=== PATIENT | male | born 1965 | race Caucasian/White ===

== ENCOUNTER 2019-02-20 08:55 | Emergency (ER) | payer MEDICARE, OTHER ==
[~2019-02-20 08:55] MED LIST: ARIP10TA15 PO; DIPH-423 PO; GABA-532 PO; NO HOME MEDS; PRED50TA PO
[2019-02-20 08:56] VITALS: BP 133/84
== END 2019-02-20 10:14 | disposition home or self-care (01) ==
LOC: ER 08:56
DX: R22.32 Localized swelling, mass and lump, left upper limb (principal); G89.29 Other chronic pain; F31.9 Bipolar disorder, unspecified; F20.9 Schizophrenia, unspecified; F15.90 Other stimulant use, unspecified, uncomplicated; F12.90 Cannabis use, unspecified, uncomplicated; Z98.890 Other specified postprocedural states; Z88.5 Allergy status to narcotic agent; Z79.899 Other long term (current) drug therapy; Z56.0 Unemployment, unspecified
CPT/HCPCS: 99281

== ENCOUNTER 2019-05-25 10:53 | Emergency (ER) | payer OTHER ==
[~2019-05-25] VITALS: Ht 180.3 cm; Wt 97.7 kg
[2019-05-25 11:06] VITALS: BP 172/94
[2019-05-25] MEDS ORDERED: traMADol 50MG tablet PO ONE (12:10)
[2019-05-25] MEDS ORDERED: ketorolac trometh inj. 60 MG/2 ML VIAL IM ONE (13:25)
[2019-05-25] MEDS ORDERED: ondansetron 4mg rapidly disintigrating tab PO ONE (13:30)
== END 2019-05-25 14:13 | disposition home or self-care (01) ==
LOC: ER 10:54
DX: K42.9 Umbilical hernia without obstruction or gangrene (principal); M79.641 Pain in right hand; G89.29 Other chronic pain; F31.9 Bipolar disorder, unspecified; F20.9 Schizophrenia, unspecified; F15.90 Other stimulant use, unspecified, uncomplicated; F12.90 Cannabis use, unspecified, uncomplicated; Z56.0 Unemployment, unspecified; Z88.5 Allergy status to narcotic agent; Z88.6 Allergy status to analgesic agent; Z79.899 Other long term (current) drug therapy
CPT/HCPCS: 96372; 99283; J1885

== ENCOUNTER 2019-05-31 10:16 | Emergency (ER) | payer OTHER ==
[~2019-05-31] VITALS: Ht 180.3 cm; Wt 96.1 kg
[2019-05-31 10:17] VITALS: BP 159/95
[2019-05-31] MEDS ORDERED: ketorolac trometh. 30mg/ml inj. IM ONE (10:50)
[2019-05-31] MEDS ORDERED: ketorolac trometh inj. 60 MG/2 ML VIAL IM ONE (10:50)
== END 2019-05-31 11:12 | disposition home or self-care (01) ==
LOC: ER 10:17
DX: K62.89 Other specified diseases of anus and rectum (principal); G89.29 Other chronic pain; F31.9 Bipolar disorder, unspecified; F20.9 Schizophrenia, unspecified; F12.90 Cannabis use, unspecified, uncomplicated; F15.90 Other stimulant use, unspecified, uncomplicated; Z86.19 Personal history of other infectious and parasitic diseases; Z90.89 Acquired absence of other organs; Z56.0 Unemployment, unspecified; Z88.5 Allergy status to narcotic agent; Z79.899 Other long term (current) drug therapy
CPT/HCPCS: 96372; 99283; J1885

== ENCOUNTER 2019-09-07 10:29 | Emergency (ER) | payer MEDICARE, OTHER ==
[~2019-09-07] VITALS: Ht 180.3 cm; Wt 96.3 kg
[2019-09-07 11:31] LABS: BASOPHILS % (AUTO) 0.5 % (0-1); EOSINOPHILS # (AUTO) 0.3 X10'3 (0-0.9); EOSINOPHILS % (AUTO) 3.1 % (0-6); HEMATOCRIT 47.4 % (42.0-52.0); HEMOGLOBIN 16.2 g/dl (14.0-17.9); LYMPHOCYTES # (AUTO) 2.1 X10'3 (1.1-4.8); LYMPHOCYTES % (AUTO) 24.5 % (21-51); MEAN CORPUSCULAR HEMOGLOBIN 31.3 PG (27.0-31.0); MEAN CORPUSCULAR HGB CONC 34.1 g/dL (33.0-36.5); MEAN CORPUSCULAR VOLUME 91.7 FL (78-98); MEAN PLATELET VOLUME 8.5 FL (7.4-10.4); MONOCYTES # (AUTO) 0.5 X10'3 (0-0.9); MONOCYTES % (AUTO) 6.1 % (2-12); NEUTROPHILS # (AUTO) 5.7 X10'3 (1.8-7.7); NEUTROPHILS % (AUTO) 65.8 % (42-75); PLATELET COUNT 199 X10'3 (140-440); RED BLOOD COUNT 5.17 X10'6 (4.70-6.10); RED CELL DISTRIBUTION WIDTH 13.4 % (11.5-14.5); WHITE BLOOD COUNT 8.6 X10'3 (4.5-11.0)
[2019-09-07 11:38] LABS: CLARITY,URINE CLEAR (Clear); COLOR,URINE YELLOW (Yellow); GLUCOSE, URINE NEGATIVE (Neg); KETONES,URINE NEGATIVE (Neg); LEUKOCYTE ESTERASE ,URINE NEGATIVE (Neg); NITRITES, URINE NEGATIVE (Neg); OCCULT BLOOD,URINE NEGATIVE (Neg); PH,URINE 5.5 (4.8-8.0); PROTEIN,URINE NEGATIVE (Neg); UROBILINOGEN,URINE 0.2 E.U/dL (0.2-1.0)
[2019-09-07 11:39] LABS: UA COLLECTION TYPE CLN CATCH MIDSTREAM
[2019-09-07 11:40] LABS: URINE AMPHETAMINE SCREEN NEGATIVE (Neg); URINE BARBITUATE SCREEN NEGATIVE (Neg); URINE BENZODIAZEPINES SCREEN NEGATIVE (Neg); URINE CANNABINOID SCREEN POSITIVE (Neg); URINE COCAINE SCREEN NEGATIVE (Neg); URINE METHADONE SCREEN NEGATIVE (Neg); URINE OPIATE SCREEN NEGATIVE (Neg); URINE PHENCYCLIDINE SCREEN NEGATIVE (Neg)
[2019-09-07 11:48] LABS: ALANINE AMINOTRANSFERASE 141 U/L (12-78); ALBUMIN 3.4 G/DL (3.4-5.0); ALBUMIN/GLOBULIN RATIO 0.9 (1.1-1.5); ALKALINE PHOSPHATASE 99 IU/L (46-116); ANION GAP 6 (8-16); ASPARTATE AMINO TRANSFERASE 64 U/L (10-37); BILIRUBIN,TOTAL 0.4 MG/DL (0.1-1.0); BLOOD UREA NITROGEN 12 MG/DL (7-18); CHLORIDE 107 MMOL/L (99-107); GLUCOSE 128 MG/DL (70-104); POTASSIUM 3.6 MMOL/L (3.5-5.1); SODIUM 143 MMOL/L (135-145); TOTAL CARBON DIOXIDE 29.6 MMOL/L (24-32); TOTAL PROTEIN 7.3 G/DL (6.4-8.2); eGFR 77 ML/MIN
[2019-09-07 11:57] LABS: ETHANOL < 0.010 GM/DL (0.0-0.010)
--- NOTE | 2019-09-07 12:00 | NUR ---
pt resting in bed. spoke with
--- NOTE | 2019-09-07 13:39 | NUR ---
pt eating lunch
--- NOTE | 2019-09-07 14:00 | NUR ---
pt is resting in bed
--- NOTE | 2019-09-07 15:00 | NUR ---
pt is resting in bed. no concerns at this time
--- NOTE | 2019-09-07 16:05 | NUR ---
pt is talking with [facility]
--- NOTE | 2019-09-07 17:00 | NUR ---
change in pt condition. no concerns at this time
--- NOTE | 2019-09-07 18:30 | NUR ---
Pt LAYING IN BED OPBSERVED MURMERING TO HIMSELF SOFTLY. PT IS PLEASANT ON APPROACH, APPEARS ANXIOUS. PT REQUESTS SOMETHING FOR ANXIETY AND NIOCOTINE PATCH.
[2019-09-07] MEDS ORDERED: nicotine 7mg patch - 24hr TD ONE (19:05)
--- NOTE | 2019-09-07 20:00 | NUR ---
PT GIVEN ATIVAN 1MG ORAL, AND 7MG NICOTINE PATCH TO LEFT UE.
[2019-09-07] MEDS ORDERED: LORazepam 1 MG tablet PO ONE (21:00)
[2019-09-07] MEDS ORDERED: olanzapine 10mg tablet PO SCH (21:00)
--- NOTE | 2019-09-07 23:07 | NUR ---
PT asleep on L side, respirations WNL.
[2019-09-08 00:57] VITALS: BP 128/89
== END 2019-09-08 ==
LOC: ER 10:29
DX: F31.9 Bipolar disorder, unspecified (principal); R45.851 Suicidal ideations; G89.29 Other chronic pain; F20.9 Schizophrenia, unspecified; F12.90 Cannabis use, unspecified, uncomplicated; F15.90 Other stimulant use, unspecified, uncomplicated; Z56.0 Unemployment, unspecified; Z90.89 Acquired absence of other organs; Z88.5 Allergy status to narcotic agent; Z79.899 Other long term (current) drug therapy
CPT/HCPCS: 36415; 80053; 80305; 80320; 81003; 84443; 85025; 99285

== ENCOUNTER 2019-09-07 23:24 | Inpatient (IN) | payer OTHER ==
[~2019-09-07] VITALS: Ht 180.3 cm; Wt 93.4 kg
[2019-09-07] MEDS ORDERED: loperamide 2mg capsule PO PRN (23:40)
[2019-09-07] MEDS ORDERED: mag hydrox/Alum hydrox/simeth 30ml oral suspension PO PRN (23:40)
[2019-09-07] MEDS ORDERED: acetaminophen 325mg tablet PO PRN ×2 (23:40)
[2019-09-07] MEDS ORDERED: magnesium hydroxide 30ml (MOM) UD suspension PO PRN (23:40)
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
[2019-09-08 07:36] VITALS: BP 130/84
[2019-09-08] MEDS ORDERED: albuterol 2.5 MG/3 ML nebule NEB PRN (09:15)
[2019-09-08 09:25] LABS: CHOL/HDL RATIO 4.4 (0.00-4.99); CHOLESTEROL 129 MG/DL (0-200); HDL CHOLESTEROL 29 MG/DL (35-60); LDL CHOLESTEROL 81 MG/DL (50-100); TRIGLYCERIDES 104 MG/DL (20-135)
[2019-09-08 09:28] LABS: HEMOGLOBIN A1C 5.9 % (4.5-6.2)
[2019-09-08] MEDS ORDERED: pneumococcal 23-VAL P-sac vacc 25 mcg/0.5ml vial IMVAC ONE (10:00)
[2019-09-08] MEDS ORDERED: FLU VACC QS2019-20 36MOS UP/PF 60 MCG/0.5 ML SYRINGE IMVAC ONE (10:00)
--- NOTE | 2019-09-08 12:00 | NUR ---
Malnutrition consult: Pt admit w/ SI PO 100% avg regular now mechanical soft/chopped diet meeting needs. Pt has no edema/wounds present as well w/ no GI symptoms noted. Pt does not meet minimum malnutrition criteria at this time. No nutrition concerns. Will continue to monitor. Addendum: 09/08/19 at [address] Amended: Links added.
[2019-09-08] MEDS ORDERED: ipratropium/albuterol 3ml nebule IH PRN (16:35)
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
[2019-09-08] MEDS: NICOTINE POLACRILEX 2 MG LOZENGE BC PRN (19:03)
[2019-09-08 20:00] VITALS: BP 93/69
[2019-09-08] MEDS: aripiprazole 5mg tablet PO SCH (20:12)
[2019-09-08] MEDS: lithium carbonate 150mg capsule PO SCH (20:13)
[2019-09-08] MEDS: traZODone 50mg tablet PO PRN (20:15)
[2019-09-08] MEDS ORDERED: olanzapine 10mg tablet PO SCH (21:00)
[2019-09-08 21:54] VITALS: BP 93/69
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
[2019-09-09 07:00] VITALS: BP 131/54
[2019-09-09] MEDS: lithium carbonate 150mg capsule PO SCH ×2 (07:38→20:45)
[2019-09-09] MEDS: nicotine 21mg patch - 24 hr TD SCH (07:39)
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
[2019-09-09 20:00] VITALS: BP 117/71
[2019-09-09] MEDS: aripiprazole 5mg tablet PO SCH (20:45)
[2019-09-09] MEDS: traZODone 50mg tablet PO PRN (20:49)
[2019-09-09] MEDS: hydrOXYzine 25 MG tablet PO PRN (20:49)
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
[2019-09-10 07:46] VITALS: BP 121/69
[2019-09-10] MEDS: lithium carbonate 150mg capsule PO SCH ×2 (07:58→19:57)
[2019-09-10] MEDS: nicotine 21mg patch - 24 hr TD SCH (07:59)
[2019-09-10] MEDS: NICOTINE POLACRILEX 2 MG LOZENGE BC PRN (13:28)
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
[2019-09-10] MEDS: aripiprazole 5mg tablet PO SCH (19:57)
[2019-09-10] MEDS: traZODone 50mg tablet PO PRN (19:59)
[2019-09-10 20:00] VITALS: BP 122/71
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
[2019-09-11 07:46] VITALS: BP 125/83
[2019-09-11] MEDS: lithium carbonate 150mg capsule PO SCH ×2 (08:14→20:23)
[2019-09-11] MEDS: nicotine 21mg patch - 24 hr TD SCH (08:15)
--- NOTE | 2019-09-11 13:48 | NUR ---
PHONE CALL W/ Jhony reported his , Rachel, is going to visit today. He noted she is going to return to [place] tomorrow. He reported he did have thoughts of killing her prior to coming to [facility]. He denied any current thoughts of harming her. Jhony gave permission for specifications writer to call his . Called Jhony's , Rachel (ph# [phone]) to ensure that she is aware that Ct had made statements of thoughts of willing her. Rachel reported she thought this was the case, but was upset to hear it from specifications writer. She reported she is going to visit this evening and is planning on returning to [place] by herself. She expressed concern that Jhony is still going to be homeless and living out of his car when he is discharged. EDILSON Astorga
--- NOTE | 2019-09-11 15:48 | NUR ---
Nursing Progress Note: Legal hold:5150 Client on involuntary status for DTS Report received from ROB Pacheco with use of SBAR. Why are they here: Pt presented to the ED with complaints of suicidal ideation. Patient came in on his own accord. According to nurse patient is agitated angry and made statements that he "wants to kill himself" and "will kill someone else". Patient says that "family is trying to get rid of him." Patient was told to come in by because he hears voices and believes that it is worsening. Patient says he tried slicing his wrist and tried to shoot himself years ago. Patient is not taking medication. Assessment What has happened this shift: Pt up and visible on the unit today. Pt attended all meals and select groups. Pt denies depression and denies S.I./H.I. Pt denies a/v hallucinations. Pt states his is coming to visit today and that she went to her rehab place last evening, so he feels she is trying and that makes him hopeful. S/I, H/I: Denies. A/VH: Denies Sleep: some napping ADL's: independent Group attendance: Yes Were meds taken: yes Any med S/E : None noted. Mental Status Exam Appearance: Freshly showered in personal attire. Edentulous. Eye contact: good Behavior: cooperative and calm. Speech: Mumbled speech due to pt not having his dentures with him. Mood: Depressed. Affect: Blunted. Thought process: linear. Circumstantial. Thought Content: going into rehab. Cognition: fair Insight: poor Judgment: poor Interventions PRN's used: nicotine lozenge Therapeutic interventions: 1:1 assessment, medication administration/monitoring/education, active listening, therapeutic conversation with positive reinforcement, behavior monitoring and intervention, reality orientation, redirection and limit setting, Q 15min safety checks. Restraints/seclusion/emergency medication: None Justification of Continued Inpatient Treatment: Continued therapeutic support and medication management needed to provide stabilization, prevent decompensation, and improve coping mechanisms decreasing risk to patient and re-admittance.
[2019-09-11] MEDS: NICOTINE POLACRILEX 2 MG LOZENGE BC PRN (17:26)
[2019-09-11 20:00] VITALS: BP 127/80
[2019-09-11] MEDS: hydrOXYzine 25 MG tablet PO PRN (20:22)
[2019-09-11] MEDS: traZODone 50mg tablet PO PRN (20:23)
[2019-09-11] MEDS: aripiprazole 5mg tablet PO SCH (20:25)
--- NOTE | 2019-09-12 01:08 | NUR ---
Nursing Progress Note: Legal hold:5150 Client on involuntary status for DTS Report received from , RN with use of SBAR. Why are they here: Pt presented to the ED with complaints of suicidal ideation. Patient came in on his own accord. According to nurse patient is agitated angry and made statements that he "wants to kill himself" and "will kill someone else". Patient says that "family is trying to get rid of him." Patient was told to come in by because he hears voices and believes that it is worsening. Patient says he tried slicing his wrist and tried to shoot himself years ago. Patient is not taking medication. Assessment What has happened this shift: This patient was awake and well oriented following shift change. He meets with this engineering technical writer in the community room. Patient states he is feeling pretty good. He denies S/I or H/I, he denies hallucinations. Patient states he had a BM today, "it was normal." The patient ate his full dinner. He was medication compliant. Later in the evening this patient came out of his room. He exhibited anxiety, he states he feels some anger, he knows no reason. This patient rocks sideways back and forth from one foot to the other. His eye contact is now poor. The patient is redirected back to bed. He complies. The patient was administered Atarax, he was also given Trazadone for sleep. The patient calms and goes to sleep. S/I, H/I: Denies. A/VH: Denies. Sleep: Will compile in am at 0500 hrs. ADL's: Independent. Group attendance: Yes, reported on day shift. Were meds taken: Patient is medication compliant. Any med S/E : None noted. Mental Status Exam Appearance: Patient showered on day shift. Wearing personal clothing. Not wearing his dentures. Eye contact: Good. Behavior: Cooperative. Later in shift anxious with some anger. Speech: Mumbled speech due to pt not having his dentures with him. Mood: Depressed. Affect: Blunted. Thought process: linear. Circumstantial. Thought Content: "I'm feeling anxious and angry." Cognition: Fair. Insight: Poor. Judgment: Poor. Interventions PRN's used: Trazadone, Atarax. Therapeutic interventions: 1:1 assessment, medication administration/monitoring/education, active listening, therapeutic conversation with positive reinforcement, behavior monitoring and intervention, reality orientation, redirection and limit setting, Q 15min safety checks. Restraints/seclusion/emergency medication: None Justification of Continued Inpatient Treatment: Continued therapeutic support and medication management needed to provide stabilization, prevent decompensation, and improve coping mechanisms decreasing risk to patient and re-admittance.
[2019-09-12] MEDS: lithium carbonate 150mg capsule PO SCH ×2 (08:21→20:45)
[2019-09-12] MEDS: buPROPion SR 150mg tablet PO SCH (08:21)
[2019-09-12] MEDS: nicotine 21mg patch - 24 hr TD SCH (08:21)
[2019-09-12 08:48] VITALS: BP 125/60
--- NOTE | 2019-09-12 12:01 | NUR ---
Initial: Pt admit with depression. Currently on a mechanical soft diet with 75-100% PO intake meeting nutrient needs. LBM 09/11. No edema or wounds. No nutrition diagnosis at this time. Will continue to follow. Recommendations: 1) Continue mechanical soft diet 2) Bowel care PRN 3) Weekly weights Addendum: 09/12/19 at [address] Amended: Links added.
--- NOTE | 2019-09-12 16:45 | NUR ---
Nursing Progress Note: Legal hold:5150 Client on involuntary status for DTS Report received from ROB Wright with use of SBAR. Why are they here: Pt presented to the ED with complaints of suicidal ideation. Patient came in on his own accord. According to nurse patient is agitated angry and made statements that he "wants to kill himself" and "will kill someone else". Patient says that "family is trying to get rid of him." Patient was told to come in by because he hears voices and believes that it is worsening. Patient says he tried slicing his wrist and tried to shoot himself years ago. Patient is not taking medication. Assessment What has happened this shift: Pt up and visible on the unit today. Pt attended all meals and select groups. Pt denies depression and denies S.I./H.I. Pt denies a/v hallucinations. Pt states his visited last night and they had a good visit and he remains hopeful re: future. Pt started on Wellbutrin today. Pt spent majority of the day watching football games and did pace at times. S/I, H/I: Denies. A/VH: Denies Sleep: some napping ADL's: independent Group attendance: Yes Were meds taken: yes Any med S/E : None noted. Mental Status Exam Appearance: Freshly showered in personal attire. Edentulous. Eye contact: good Behavior: cooperative and calm. Speech: Mumbled speech due to pt not having his dentures with him. Mood: hopeful Affect: Blunted. Thought process: linear. Circumstantial. Thought Content: going into rehab. Cognition: fair Insight: poor Judgment: poor Interventions PRN's used: nicotine lozenge Therapeutic interventions: 1:1 assessment, medication administration/monitoring/education, active listening, therapeutic conversation with positive reinforcement, behavior monitoring and intervention, reality orientation, redirection and limit setting, Q 15min safety checks. Restraints/seclusion/emergency medication: None Justification of Continued Inpatient Treatment: Continued therapeutic support and medication management needed to provide stabilization, prevent decompensation, and improve coping mechanisms decreasing risk to patient and re-admittance.
[2019-09-12 20:00] VITALS: BP 127/73
[2019-09-12] MEDS: traZODone 50mg tablet PO PRN (20:45)
[2019-09-12] MEDS: aripiprazole 5mg tablet PO SCH (20:45)
[2019-09-12] MEDS: hydrOXYzine 25 MG tablet PO PRN (20:45)
--- NOTE | 2019-09-12 22:47 | NUR ---
Nursing Progress Note: Legal hold:5150 Client on involuntary status for DTS Report received from ROB Ortiz with use of SBAR. Why are they here: Pt presented to the ED with complaints of suicidal ideation. Patient came in on his own accord. According to nurse patient is agitated angry and made statements that he "wants to kill himself" and "will kill someone else". Patient says that "family is trying to get rid of him." Patient was told to come in by because he hears voices and believes that it is worsening. Patient says he tried slicing his wrist and tried to shoot himself years ago. Patient is not taking medication. Assessment What has happened this shift: Patient is out of room and ambulatory during the evening. Patient is well oriented and socializes with other patients and staff. Patient tells this adjusto writer operator that he is feeling pretty good. He denies S/I, H/I, or any hallucinations. Patient has a complaint of minor depression and some anxiety. Patient is medication compliant. He ate his full meal. Patient has watched football on television. Patient is well groomed. He did shower earlier. Patient had a BM earlier in the day. Patient rested after dinner, he has not voiced any needs since his medication pass. S/I, H/I: Denies. A/VH: Denies. Sleep: Will tally in am. ADL's: Independent. Group attendance: Yes Were meds taken: Patient is medication compliant. Any med S/E : None noted. Mental Status Exam Appearance: Freshly showered in personal attire. Edentulous. Eye contact: Good. Behavior: Friendly, mild anxiety. Speech: Mumbled speech due to pt not having his dentures with him. Mood: Upbeat. Affect: Blunted. Thought process: Linear. Circumstantial. Thought Content: going into rehab. Cognition: Fair. Insight: Poor Judgment: Poor Interventions PRN's used: Atarax, Trazadone Therapeutic interventions: 1:1 assessment, medication administration/monitoring/education, active listening, therapeutic conversation with positive reinforcement, behavior monitoring and intervention, reality orientation, redirection and limit setting, Q 15min safety checks. Restraints/seclusion/emergency medication: None Justification of Continued Inpatient Treatment: Continued therapeutic support and medication management needed to provide stabilization, prevent decompensation, and improve coping mechanisms decreasing risk to patient and re-admittance.
[2019-09-13 07:11] VITALS: BP 112/77
[2019-09-13] MEDS: buPROPion SR 150mg tablet PO SCH (08:10)
[2019-09-13] MEDS: nicotine 21mg patch - 24 hr TD SCH (08:10)
[2019-09-13] MEDS: lithium carbonate 150mg capsule PO SCH ×2 (08:10→20:25)
--- NOTE | 2019-09-13 13:35 | NUR ---
NURSING PROGRESS NOTE Legal hold: None Client is Voluntary Report received from ROB Wright with use of SBAR Why are they here: Pt presented to the ED with complaints of suicidal ideation. Patient came in on his own accord. According to nurse patient is agitated angry and made statements that he "wants to kill himself" and "will kill someone else". Patient says that "family is trying to get rid of him." Patient was told to come in by because he hears voices and believes that it is worsening. Patient says he tried slicing his wrist and tried to shoot himself years ago. Patient is not taking medication. Assessment What has happened this shift: Up early before breakfast, took medications. Denies SI, HI, AH, VH. Slightly guarded and at times constricted. After breakfast, up on unit and social with others. Attended morning process group with SW and was observed participating and paying close attention. Watched football games most of afternoon and was pleasant and cooperative. S/I, H/I: Denies. A/VH: Denies. Sleep: None ADL's: Independent. Group attendance: Yes Were meds taken: yes Any med S/E : None Mental Status Exam Appearance: Neat and clean Eye contact: Direct mostly at times avoidant Behavior: Social Speech: Clear Mood: "good" Affect: pleasant Thought process: Circumstantial. Thought Content: wanting to watch the games Cognition: Alert Insight: fair Judgment: fair Interventions PRN's used: None Therapeutic interventions: 1:1 assessment, medication administration/monitoring/education, active listening, therapeutic conversation with positive reinforcement, behavior monitoring and intervention, reality orientation, redirection and limit setting, Q 15min safety checks. Restraints/seclusion/emergency medication: None Justification of Continued Inpatient Treatment: Continued therapeutic support and medication management needed to provide stabilization, prevent decompensation, and improve coping mechanisms decreasing risk to patient and re-admittance.
[2019-09-13 20:04] VITALS: BP 121/79
[2019-09-13] MEDS: aripiprazole 5mg tablet PO SCH (20:25)
[2019-09-13] MEDS: temazepam 15mg capsule PO PRN (20:40)
--- NOTE | 2019-09-13 22:38 | NUR ---
Nursing Progress Note Legal hold: None Client is Voluntary Report received from ROB Desir with use of SBAR Why are they here: Pt presented to the ED with complaints of suicidal ideation. Patient came in on his own accord. According to nurse patient is agitated angry and made statements that he "wants to kill himself" and "will kill someone else". Patient says that "family is trying to get rid of him." Patient was told to come in by because he hears voices and believes that it is worsening. Patient says he tried slicing his wrist and tried to shoot himself years ago. Patient is not taking medication. Assessment What has happened this shift: Pt was in rec room watching football at change of shift. Pt appeared to be interacting with others appropriately and did not appear to be in any distress. After tv pt spoke on the phone with someone that informed him that his father is "not doing good," and is now at the hospital. He also reported stress associated with his mothers help and he stated tearfully, "I hope they don't when I'm in here. Pt attended snack and accepted hs meds with no issue. S/I, H/I: Denies. A/VH: Denies. Sleep: see sleep assessment ADL's: Independent. Group attendance: snack Were meds taken: yes Any med S/E : None Mental Status Exam Appearance: Neat and clean Eye contact: Direct Behavior: Social Speech: Clear Mood: "sad" Affect: congruent with mood Thought process: Circumstantial. Thought Content: parents health Cognition: Alert Insight: fair Judgment: fair Interventions PRN's used: None Therapeutic interventions: 1:1 assessment, medication administration/monitoring/education, active listening, therapeutic conversation with positive reinforcement, behavior monitoring and intervention, reality orientation, redirection and limit setting, Q 15min safety checks. Restraints/seclusion/emergency medication: None Justification of Continued Inpatient Treatment: Continued therapeutic support and medication management needed to provide stabilization, prevent decompensation, and improve coping mechanisms decreasing risk to patient and re-admittance.
[2019-09-14 08:00] VITALS: BP 126/82
[2019-09-14] MEDS: buPROPion SR 150mg tablet PO SCH (08:00)
[2019-09-14] MEDS: nicotine 21mg patch - 24 hr TD SCH (08:00)
[2019-09-14] MEDS: lithium carbonate 150mg capsule PO SCH ×2 (08:00→20:26)
--- NOTE | 2019-09-14 10:59 | NUR ---
DISCHARGE PLANNING Called [facility] to see if Jhony is a patient there. Was informed that he was seen on the [facility] in June and can follow up with the [facility]. She reported she will have a visit coordinator with the [employer] call selling underwriter to discuss follow up and referral to PCN. EDILSON Astorga
--- NOTE | 2019-09-14 13:59 | NUR ---
NURSING PROGRESS NOTE Legal hold: None Client is Voluntary Report received from ROB Quiles with use of SBAR Why are they here: Pt presented to the ED with complaints of suicidal ideation. Patient came in on his own accord. According to nurse patient is agitated angry and made statements that he "wants to kill himself" and "will kill someone else". Patient says that "family is trying to get rid of him." Patient was told to come in by because he hears voices and believes that it is worsening. Patient says he tried slicing his wrist and tried to shoot himself years ago. Patient is not taking medication. Assessment What has happened this shift: Slept in today, up for breakfast. Denies SI, HI, AH, VH. Reports recent losses, (this last year) ,his 2 sisters , and his brother. His mother is now in the hospital with multiple problems including dementia and his father too in the hospital suffering from a "pancreatic infection" and not "expected to make it." C/O his not doing [employer] paperwork from [place] and "she just gets drunk and doesn't get things done." Agreeable of going to the [facility] upon discharge. S/I, H/I: Denies. A/VH: Denies. Sleep: None ADL's: Independent. Group attendance: Yes Were meds taken: yes Any med S/E : None Mental Status Exam Appearance: Neat and clean Eye contact: Direct Behavior: Cooperative and pleasant Speech: Clear Mood: "I feel hopeful now" Affect: pleasant Thought process: Circumstantial. Thought Content: family members illnesses Cognition: Alert Insight: fair Judgment: fair Interventions PRN's used: None Therapeutic interventions: 1:1 assessment, medication administration/monitoring/education, active listening, therapeutic conversation with positive reinforcement, behavior monitoring and intervention, reality orientation, redirection and limit setting, Q 15min safety checks. Restraints/seclusion/emergency medication: None Justification of Continued Inpatient Treatment: Continued therapeutic support and medication management needed to provide stabilization, prevent decompensation, and improve coping mechanisms decreasing risk to patient and re-admittance.
--- NOTE | 2019-09-14 15:28 | NUR ---
DISCHARGE PLANNING Called [facility] and scheduled Pt's follow up appt with Dr Zamora on 09/30/19 at 3:15 pm. EDILSON Astorga
[2019-09-14 20:04] VITALS: BP 136/82
[2019-09-14] MEDS: aripiprazole 5mg tablet PO SCH (20:26)
[2019-09-14] MEDS: temazepam 15mg capsule PO PRN (20:27)
--- NOTE | 2019-09-15 00:04 | NUR ---
Nursing Progress Note Legal hold: None Client is Voluntary Report received from ROB Desir with use of SBAR Why are they here: Pt presented to the ED with complaints of suicidal ideation. Patient came in on his own accord. According to nurse patient is agitated angry and made statements that he "wants to kill himself" and "will kill someone else". Patient says that "family is trying to get rid of him." Patient was told to come in by because he hears voices and believes that it is worsening. Patient says he tried slicing his wrist and tried to shoot himself years ago. Patient is not taking medication. Assessment What has happened this shift: Pt was in rec room watching tv with other pt's at change of shift. Pt is quiet but interacts appropriately with staff and other pt's and is friendly and cooperative for 1:1. Pt denies having any complaints, reports stress related to his parent's recent hospitalization and not hearing from anyone today. Pt attended snack and then asked for his hs meds before going to bed. S/I, H/I: Denies. A/VH: Denies. Sleep: see sleep assessment ADL's: Independent. Group attendance: snack Were meds taken: yes Any med S/E : None Mental Status Exam Appearance: Neat and clean Eye contact: Direct Behavior: quiet, calm Speech: Clear Mood: "ok" Affect: congruent with mood Thought process: Circumstantial. Thought Content: parents health Cognition: Alert Insight: fair Judgment: fair Interventions PRN's used: None Therapeutic interventions: 1:1 assessment, medication administration/monitoring/education, active listening, therapeutic conversation with positive reinforcement, behavior monitoring and intervention, reality orientation, redirection and limit setting, Q 15min safety checks. Restraints/seclusion/emergency medication: None Justification of Continued Inpatient Treatment: Continued therapeutic support and medication management needed to provide stabilization, prevent decompensation, and improve coping mechanisms decreasing risk to patient and re-admittance.
[2019-09-15] MEDS ORDERED: buPROPion SR 150mg tablet PO SCH (07:30)
[2019-09-15 07:31] VITALS: BP 111/66
[2019-09-15] MEDS: nicotine 21mg patch - 24 hr TD SCH (07:54)
[2019-09-15] MEDS: buPROPion SR 100mg tab PO SCH ×2 (07:54→13:04)
[2019-09-15] MEDS: lithium carbonate 150mg capsule PO SCH ×2 (07:56→20:36)
--- NOTE | 2019-09-15 08:41 | NUR ---
[employer] APPLICATION Spoke with Italia [facility], to inquire if she met with Jhony yesterday regarding Med[employer] application. She reported she left a message with his to get additional information. Provided her with the phone number that justowriter operator was able to reach the at (different than the one Italia had called). Italia reported she will call again at the # justowriter operator provided. EDILSON Astorga
--- NOTE | 2019-09-15 17:36 | NUR ---
NURSING PROGRESS NOTE Legal hold: Voluntary. Report received from ROB Pacheco with use of SBAR Why are they here: Pt presented to the ED with complaints of suicidal ideation. Patient came in on his own accord. According to nurse patient is agitated angry and made statements that he "wants to kill himself" and "will kill someone else". Patient says that "family is trying to get rid of him." Patient was told to come in by because he hears voices and believes that it is worsening. Patient says he tried slicing his wrist and tried to shoot himself years ago. Patient is not taking medication. Assessment What has happened this shift: Patient awake early, showered. States that his never checked into rehab. and he cannot go through it anymore with her while she is still drinking. Patient states that his mother has dementia and she fell and fx hip and face injured during fall. His dad is in the hospital for pancreatic problems, and states the treatment is dangerous. He cannot get a hold of anyone on the phone. States he may have to go to [place] if anything happens, to take care of his mother. This plan has failed in the past. S/I, H/I: Denies. A/VH: Denies. Sleep: None ADL's: Independent. Group attendance: Yes Were meds taken: yes Any med S/E : None Mental Status Exam Appearance: Freshly showered in clean personal attire. Eye contact: Direct Behavior: Cooperative and pleasant Speech: Clear Mood: Depressed. Affect: Blunted. Thought process: Circumstantial. Thought Content: family members illnesses Cognition: Alert Insight: fair Judgment: fair Interventions PRN's used: None Therapeutic interventions: 1:1 assessment, medication administration/monitoring/education, active listening, therapeutic conversation with positive reinforcement, behavior monitoring and intervention, reality orientation, redirection and limit setting, Q 15min safety checks. Restraints/seclusion/emergency medication: None Justification of Continued Inpatient Treatment: Continued therapeutic support and medication management needed to provide stabilization, prevent decompensation, and improve coping mechanisms decreasing risk to patient and re-admittance.
[2019-09-15 20:00] VITALS: BP 131/65
[2019-09-15] MEDS: temazepam 15mg capsule PO PRN (20:37)
[2019-09-15] MEDS: aripiprazole 5mg tablet PO SCH (20:37)
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
[2019-09-16 07:27] VITALS: BP 129/83
[2019-09-16] MEDS: buPROPion SR 100mg tab PO SCH (07:37)
[2019-09-16] MEDS: lithium carbonate 150mg capsule PO SCH (07:38)
[2019-09-16] MEDS: nicotine 21mg patch - 24 hr TD SCH (07:38)
[2019-09-16] MEDS: hydrOXYzine 25 MG tablet PO PRN (07:53)
--- NOTE | 2019-09-16 08:44 | NUR ---
MEDI-FABIOLA APPLICATION Jhony reported his tried to get bank statements from [employer] on his behalf with his photo ID and they would not release the records to her. Spoke to Italia (ext [phone]) with FS who reported she cannot access his bank statements either. She reported Jhony could go into [employer], get the necessary records, and bring them back to FS and she would fax them in for his Medi-fabiola application. Will apprise Jhony of this. EDILSON Astorga
--- NOTE | 2019-09-16 09:19 | NUR ---
Talked to Jhony about his Medi-fabiola application. Jhony reported he can take care of getting his bank statements once he is discharged. He reported he can stay at the [facility], follow up with MILENA Melendez, and he has an appt with Dr Zamora at the end of the month. He denied any SI or HI and stated he is feeling better. Will discuss in tx team meeting. EDILSON Astorga
[2019-09-16] MEDS ORDERED: ALBU8HFA PO (10:06)
[2019-09-16] MEDS ORDERED: LIT300C PO (10:06)
[2019-09-16] MEDS ORDERED: ATRIN INH (10:06)
[2019-09-16] MEDS ORDERED: BUPR100T7 PO (10:06)
[2019-09-16] MEDS ORDERED: ARIP10TA17 PO (10:06)
[2019-09-16] MEDS ORDERED: HYDR-3686 PO (10:06)
[2019-09-16] MEDS ORDERED: NICO-687 TD (10:06)
--- NOTE | 2019-09-16 13:15 | NUR ---
DISCHARGE NOTE: Patient has agreed to go to the [facility] for food, clothing and long-term. Patient had a visit with today that went well. Patient has to apply for Medi-Sven, obtain bank statements, etc. Patient denies SI/HI. Patient is discharged in stable condition. Patient will see Dr. Zamora for follow-up psychiatric care.
== END 2019-09-16 11:20 | disposition short-term general hospital (02) | DRG 885 ==
LOC: ADULT MH 23:24
PROVIDERS: ADMIT Psychiatry & Neurology Psychiatry; ATTEND Psychiatry & Neurology Psychiatry
PROC: 3E02340 Introduction of Influenza Vaccine into Muscle, Percutaneous Approach (ICD-10-PCS; principal; 2019-09-08)
PROC: 3E0234Z Introduction of Serum, Toxoid and Vaccine into Muscle, Percutaneous Approach (ICD-10-PCS; 2019-09-08)
DX: F33.2 Major depressive disorder, recurrent severe without psychotic features (principal); B19.20 Unspecified viral hepatitis C without hepatic coma; R45.851 Suicidal ideations; G89.29 Other chronic pain; M54.9 Dorsalgia, unspecified; F12.11 Cannabis abuse, in remission; F25.0 Schizoaffective disorder, bipolar type; J44.9 Chronic obstructive pulmonary disease, unspecified; Z59.0 Homelessness; Z23 Encounter for immunization
CPT/HCPCS: 36415; 80053; 80061; 80178; 80305; 80320; 81003; 83036; 84443; 85025; 87081; 90732; 94640; 94760; Q2037; Z7610

== ENCOUNTER 2020-07-19 07:51 | Emergency (ER) | payer BC, MEDICAID ==
[~2020-07-19] VITALS: Ht 180.3 cm; Wt 95.9 kg
[~2020-07-19 07:51] MED LIST changes: -ARIP10TA15 PO; +ARIP10TA17 PO; +ATRIN INH; +BUPR100T7 PO; -DIPH-423 PO; -GABA-532 PO; +HYDR-3686 PO; +LIT300C PO; +NICO-687 TD; -NO HOME MEDS; -PRED50TA PO
[2020-07-19] MEDS ORDERED: HYDR-4383 PO (08:27)
[2020-07-19 08:42] VITALS: BP 111/60
== END 2020-07-19 08:45 | disposition home or self-care (01) ==
LOC: ER 07:52
DX: M54.9 Dorsalgia, unspecified (principal); G89.29 Other chronic pain; F12.90 Cannabis use, unspecified, uncomplicated; F15.90 Other stimulant use, unspecified, uncomplicated; Z76.0 Encounter for issue of repeat prescription; Z88.6 Allergy status to analgesic agent; Z79.899 Other long term (current) drug therapy; Z90.89 Acquired absence of other organs; Z85.118 Personal history of other malignant neoplasm of bronchus and lung; Z56.0 Unemployment, unspecified
CPT/HCPCS: 99283

== ENCOUNTER 2020-07-23 13:55 | Emergency (ER) | payer BC, MEDICAID ==
[~2020-07-23] VITALS: Ht 180.3 cm; Wt 95.5 kg
[~2020-07-23 13:55] MED LIST changes: +HYDR-4383 PO
[2020-07-23 14:03] VITALS: BP 134/86
[2020-07-23] MEDS ORDERED: ketorolac trometh inj. 60 MG/2 ML VIAL IM ONE (14:20)
== END 2020-07-23 14:56 | disposition home or self-care (01) ==
LOC: ER 13:55
DX: G89.29 Other chronic pain (principal); M54.5 Low back pain; J44.9 Chronic obstructive pulmonary disease, unspecified; Z90.89 Acquired absence of other organs; Z56.0 Unemployment, unspecified; F12.90 Cannabis use, unspecified, uncomplicated; F15.90 Other stimulant use, unspecified, uncomplicated; Z88.6 Allergy status to analgesic agent; Z79.899 Other long term (current) drug therapy
CPT/HCPCS: 96372; 99283; J1885

== ENCOUNTER 2020-07-25 09:06 | Emergency (ER) | payer BC, MEDICAID ==
[~2020-07-25] VITALS: Ht 175.3 cm; Wt 100.0 kg
--- NOTE | 2020-07-25 09:30 | NUR ---
DUNCAN GREY MADE AWARE OF PATIENT'S STATUS, PA TO ENTER ORDERS. PATIENT TO AMBULATE IN ROOM TO MONITOR FOR DE SATURATION.
--- NOTE | 2020-07-25 09:35 | NUR ---
DUNCAN GREY MADE AWARE OF PHONE CALL FROM [facility], PATIENT SPO2 DESATURATION WAS LOW, VSS UPON ARRIVAL, PATIENT SPO2 97% ON ROOM AIR S/P AMBULATION, COVID NEGATIVE RESULT, PA AT BEDSIDE TO ASSESS PATIENT.
[2020-07-25] MEDS ORDERED: AMOX-422 PO (09:39)
[2020-07-25] MEDS ORDERED: NAPR-56 PO (09:42)
[2020-07-25] MEDS ORDERED: HYDR-4383 PO (09:42)
[2020-07-25 10:38] VITALS: BP 107/71
== END 2020-07-25 10:42 | disposition home or self-care (01) ==
LOC: ER 09:07
DX: C34.90 Malignant neoplasm of unspecified part of unspecified bronchus or lung (principal); J20.9 Acute bronchitis, unspecified; M54.9 Dorsalgia, unspecified; F31.9 Bipolar disorder, unspecified; F20.9 Schizophrenia, unspecified; F12.10 Cannabis abuse, uncomplicated; F15.10 Other stimulant abuse, uncomplicated; Z59.0 Homelessness; Z56.0 Unemployment, unspecified; Z88.5 Allergy status to narcotic agent; Z79.899 Other long term (current) drug therapy
CPT/HCPCS: 71045; 93005; 99283

== ENCOUNTER 2020-08-01 08:34 | Day surgery (SDC) | payer BC, MEDICAID ==
[2020-08-01] VITALS (18 sets, daily range): BP systolic 111–142; BP diastolic 58–100
[~2020-08-01] VITALS: Ht 180.3 cm; Wt 95.7 kg
[~2020-08-01 08:34] MED LIST changes: +AMOX-422 PO; +NAPR-56 PO
[2020-08-01] MEDS ORDERED: normal saline 1000ml 1,000 ML IV PRN (08:50)
[2020-08-01] MEDS ORDERED: GABA300C PO (09:16)
[2020-08-01] MEDS ORDERED: NAPR-996 PO (09:40)
[2020-08-01] MEDS ORDERED: UMEC1DIS INH (09:40)
[2020-08-01] MEDS ORDERED: HYDR-4383 PO (09:40)
[2020-08-01] MEDS ORDERED: midazolam 2 mg/2 ml injection ONE (10:30)
[2020-08-01] MEDS ORDERED: fentaNYL/PF 50MCG/1 ML 2ML syringe ONE (10:31)
== END 2020-08-01 14:25 | disposition home or self-care (01) ==
LOC: SSTAY O 08:34
PROVIDERS: ATTEND Radiology Diagnostic Radiology
DX: R91.8 Other nonspecific abnormal finding of lung field (principal); C34.11 Malignant neoplasm of upper lobe, right bronchus or lung; Z88.5 Allergy status to narcotic agent; Z79.899 Other long term (current) drug therapy
CPT/HCPCS: 32405; 36415; 71045; 77012; 99152; 99153; J2250; J3010

== ENCOUNTER 2021-07-25 16:14 | Emergency (ER) | payer MEDICARE, MEDICAID ==
[~2021-07-25] VITALS: Ht 180.3 cm; Wt 111.4 kg
[~2021-07-25 16:14] MED LIST changes: -AMOX-422 PO; -ARIP10TA17 PO; -ATRIN INH; -BUPR100T7 PO; +GABA300C PO; -HYDR-3686 PO; -LIT300C PO; -NAPR-56 PO; +NAPR-996 PO; -NICO-687 TD; +UMEC1DIS INH
[2021-07-25 16:35] VITALS: BP 164/93
[2021-07-25] MEDS: ketorolac trometh. 30mg/ml inj. IM ONE (17:45)
== END 2021-07-25 17:00 | disposition home or self-care (01) ==
LOC: ER 16:15
DX: M54.50 Low back pain, unspecified (principal); G89.29 Other chronic pain; J44.9 Chronic obstructive pulmonary disease, unspecified; F31.9 Bipolar disorder, unspecified; F12.90 Cannabis use, unspecified, uncomplicated; F15.90 Other stimulant use, unspecified, uncomplicated; Z86.19 Personal history of other infectious and parasitic diseases; Z85.118 Personal history of other malignant neoplasm of bronchus and lung; Z20.9 Contact with and (suspected) exposure to unspecified communicable disease; Z56.0 Unemployment, unspecified; Z59.00 Homelessness unspecified; Z88.5 Allergy status to narcotic agent; Z79.899 Other long term (current) drug therapy
CPT/HCPCS: 96372; 99283; J1885

== ENCOUNTER 2022-02-10 09:45 | Emergency (ER) | payer MEDICARE, MEDICAID ==
[~2022-02-10] VITALS: Ht 182.9 cm; Wt 113.6 kg
[2022-02-10] MEDS ORDERED: MECL-159 PO (09:59)
[2022-02-10] MEDS ORDERED: meclizine 12.5mg tablet PO ONE (10:00)
[2022-02-10 10:42] VITALS: BP 162/89
== END 2022-02-10 10:44 | disposition home or self-care (01) ==
LOC: ER 09:46
DX: R42 Dizziness and giddiness (principal); R11.0 Nausea; H11.32 Conjunctival hemorrhage, left eye; J44.9 Chronic obstructive pulmonary disease, unspecified; G89.29 Other chronic pain; F12.90 Cannabis use, unspecified, uncomplicated; F15.90 Other stimulant use, unspecified, uncomplicated; Z85.118 Personal history of other malignant neoplasm of bronchus and lung; Z87.19 Personal history of other diseases of the digestive system; Z56.0 Unemployment, unspecified; Z59.00 Homelessness unspecified; Z88.5 Allergy status to narcotic agent; Z88.8 Allergy status to other drugs, medicaments and biological substances; Z79.899 Other long term (current) drug therapy
CPT/HCPCS: 93005; 99283; J8597

== ENCOUNTER 2022-03-25 20:23 | Emergency (ER) | payer MEDICARE, MEDICAID ==
[~2022-03-25 20:23] MED LIST changes: +MECL-159 PO
== END 2022-03-25 21:58 | disposition left against medical advice (07) ==
LOC: ER 20:23
DX: M54.50 Low back pain, unspecified (principal); Z53.21 Procedure and treatment not carried out due to patient leaving prior to being seen by health care provider

== ENCOUNTER 2022-03-28 09:03 | Emergency (ER) | payer MEDICARE, MEDICAID ==
[~2022-03-28] VITALS: Ht 180.3 cm; Wt 109.1 kg
[2022-03-28 09:18] VITALS: BP 127/86
[2022-03-28] MEDS ORDERED: LIDOCAINE 5% OINTMENT 35GM TP ONE (10:25)
[2022-03-28] MEDS ORDERED: LIDO30CR TOP (10:30)
[2022-03-28] MEDS ORDERED: ketorolac trometh inj. 60 MG/2 ML VIAL IM ONE (10:30)
== END 2022-03-28 10:57 | disposition home or self-care (01) ==
LOC: ER 09:03
DX: G89.29 Other chronic pain (principal); K62.89 Other specified diseases of anus and rectum; F12.10 Cannabis abuse, uncomplicated; F15.10 Other stimulant abuse, uncomplicated; J44.9 Chronic obstructive pulmonary disease, unspecified; Z87.19 Personal history of other diseases of the digestive system; F31.9 Bipolar disorder, unspecified; F20.9 Schizophrenia, unspecified; Z59.00 Homelessness unspecified; Z56.0 Unemployment, unspecified; Z88.5 Allergy status to narcotic agent; Z79.899 Other long term (current) drug therapy
CPT/HCPCS: 96372; 99283; J1885

== ENCOUNTER 2022-04-09 17:16 | Emergency (ER) | payer MEDICARE, MEDICAID ==
[~2022-04-09] VITALS: Ht 182.9 cm; Wt 90.9 kg
[~2022-04-09 17:16] MED LIST changes: +LIDO30CR TOP
[2022-04-09] MEDS ORDERED: BEBTELOVIMAB 175 MG/2 ML VIAL IV ONE (18:00)
[2022-04-09] MEDS ORDERED: ondansetron/PF 4mg/2ml inj IV ONE (18:00)
[2022-04-09] MEDS ORDERED: ketorolac trometh. 30mg/ml inj. IV ONE (18:00)
[2022-04-09] MEDS ORDERED: normal saline 1000ML IV soln IVB ONE (18:00)
[2022-04-09 18:30] LABS: EOSINOPHILS # (AUTO) 0.1 X10'3 (0-0.9); HEMOGLOBIN 15.3 g/dl (14.0-17.9); LYMPHOCYTES # (AUTO) 0.5 X10'3 (1.1-4.8); MEAN CORPUSCULAR HEMOGLOBIN 30.6 PG (27.0-31.0); MEAN CORPUSCULAR HGB CONC 33.4 g/dL (33.0-36.5)
[2022-04-09 18:32] LABS: BASOPHILS % (AUTO) 0.3 % (0-1); EOSINOPHILS % (AUTO) 1.9 % (0-6); HEMATOCRIT 45.8 % (42.0-52.0); LYMPHOCYTES % (AUTO) 13.5 % (21-51); MEAN CORPUSCULAR VOLUME 91.6 FL (78-98); MEAN PLATELET VOLUME 7.6 FL (7.4-10.4); MONOCYTES # (AUTO) 0.3 X10'3 (0-0.9); MONOCYTES % (AUTO) 8.2 % (2-12); NEUTROPHILS % (AUTO) 76.1 % (42-75); PLATELET COUNT 144 X10'3 (140-440); RED CELL DISTRIBUTION WIDTH 14.4 % (11.5-14.5); WHITE BLOOD COUNT 3.9 X10'3 (4.5-11.0)
[2022-04-09 18:59] LABS: ALANINE AMINOTRANSFERASE 66 U/L (12-78); ALBUMIN 3.2 G/DL (3.4-5.0); ALBUMIN/GLOBULIN RATIO 0.7 (1.1-1.5); ALKALINE PHOSPHATASE 60 IU/L (46-116); ANION GAP 8 (8-16); ASPARTATE AMINO TRANSFERASE 50 U/L (10-37); BILIRUBIN,TOTAL 0.4 MG/DL (0.1-1.0); BLOOD UREA NITROGEN 19 MG/DL (7-18); BUN/CREATININE RATIO 18.6 (5.4-32.0); CALCIUM 8.5 MG/DL (8.5-10.1); CHLORIDE 104 MMOL/L (99-107); CREATININE 1.02 MG/DL (0.60-1.10); GLUCOSE 95 MG/DL (70-104); POTASSIUM 4.1 MMOL/L (3.5-5.1); SODIUM 143 MMOL/L (135-145); TOTAL CARBON DIOXIDE 30.9 MMOL/L (24-32); TOTAL PROTEIN 7.6 G/DL (6.4-8.2); eGFR 75 ML/MIN
[2022-04-09 19:41] VITALS: BP 119/64
== END 2022-04-09 19:44 | disposition home or self-care (01) ==
LOC: ER 17:16
DX: U07.1 COVID-19 (principal); R11.2 Nausea with vomiting, unspecified; R19.7 Diarrhea, unspecified; J44.9 Chronic obstructive pulmonary disease, unspecified; G89.29 Other chronic pain; Z85.118 Personal history of other malignant neoplasm of bronchus and lung; F12.90 Cannabis use, unspecified, uncomplicated; F15.90 Other stimulant use, unspecified, uncomplicated; F17.210 Nicotine dependence, cigarettes, uncomplicated; Z56.0 Unemployment, unspecified; Z59.00 Homelessness unspecified; Z88.8 Allergy status to other drugs, medicaments and biological substances; Z88.5 Allergy status to narcotic agent; Z79.899 Other long term (current) drug therapy
CPT/HCPCS: 36415; 71045; 80053; 84145; 85025; 96361; 96374; 96375; 99284; J1885; J2405; J7030; M0222; Q0222

== ENCOUNTER 2022-08-05 04:59 | Emergency (ER) | payer MEDICARE, MEDICAID | END 2022-08-05 06:08 | disposition left against medical advice (07) | LOC: ER 05:00 | DX: H92.09 Otalgia, unspecified ear (principal); Z53.21 Procedure and treatment not carried out due to patient leaving prior to being seen by health care provider ==

== ENCOUNTER 2022-10-14 20:01 | Emergency (ER) | payer MEDICARE, MEDICAID ==
[~2022-10-14] VITALS: Ht 180.3 cm; Wt 110.9 kg
[2022-10-14 20:11] VITALS: BP 168/87
[2022-10-14 22:00] LABS: BASOPHILS % (AUTO) 0.6 % (0-1); EOSINOPHILS # (AUTO) 0.2 X10'3 (0-0.9); EOSINOPHILS % (AUTO) 5.6 % (0-6); HEMATOCRIT 43.1 % (42.0-52.0); HEMOGLOBIN 14.3 g/dl (14.0-17.9); LYMPHOCYTES % (AUTO) 23.1 % (21-51); MEAN CORPUSCULAR HEMOGLOBIN 30.9 PG (27.0-31.0); MEAN CORPUSCULAR HGB CONC 33.1 g/dL (33.0-36.5); MEAN CORPUSCULAR VOLUME 93.3 FL (78-98); MEAN PLATELET VOLUME 7.9 FL (7.4-10.4); MONOCYTES # (AUTO) 0.4 X10'3 (0-0.9); MONOCYTES % (AUTO) 9.7 % (2-12); NEUTROPHILS # (AUTO) 2.6 X10'3 (1.8-7.7); PLATELET COUNT 137 X10'3 (140-440); RED BLOOD COUNT 4.62 X10'6 (4.70-6.10); RED CELL DISTRIBUTION WIDTH 14.3 % (11.5-14.5); WHITE BLOOD COUNT 4.2 X10'3 (4.5-11.0)
[2022-10-14 22:04] LABS: D-DIMER 0.63 MG/L FEU (0-0.50)
[2022-10-14 22:09] LABS: ALANINE AMINOTRANSFERASE 35 U/L (12-78); ALBUMIN 3.8 G/DL (3.4-5.0); ALBUMIN/GLOBULIN RATIO 1.1 (1.1-1.5); ALKALINE PHOSPHATASE 74 IU/L (46-116); ANION GAP 6 (8-16); ASPARTATE AMINO TRANSFERASE 25 U/L (10-37); BILIRUBIN,TOTAL 0.2 MG/DL (0.1-1.0); BLOOD UREA NITROGEN 16 MG/DL (7-18); BUN/CREATININE RATIO 14.7 (5.4-32.0); CALCIUM 9.4 MG/DL (8.5-10.1); CHLORIDE 105 MMOL/L (99-107); CREATININE 1.09 MG/DL (0.60-1.10); GLUCOSE 102 MG/DL (70-104); POTASSIUM 4.5 MMOL/L (3.5-5.1); SODIUM 145 MMOL/L (135-145); TOTAL CARBON DIOXIDE 33.6 MMOL/L (24-32); TOTAL PROTEIN 7.2 G/DL (6.4-8.2); eGFR 69 ML/MIN
--- NOTE | 2022-10-14 22:26 | NUR ---
VAS AT BEDSIDE
--- NOTE | 2022-10-14 22:27 | NUR ---
VAS AT BEDSIDE
[2022-10-14] MEDS ORDERED: cephalexin 250mg capsule PO ONE (22:55)
[2022-10-14] MEDS ORDERED: CEPH-585 PO (22:59)
[2022-10-14] MEDS ORDERED: TRIA15CR61 TOP (22:59)
== END 2022-10-14 23:14 | disposition home or self-care (01) ==
LOC: ER 20:02
DX: L03.115 Cellulitis of right lower limb (principal); I50.9 Heart failure, unspecified; J44.9 Chronic obstructive pulmonary disease, unspecified; G89.29 Other chronic pain; F31.9 Bipolar disorder, unspecified; F20.9 Schizophrenia, unspecified; F17.200 Nicotine dependence, unspecified, uncomplicated; F12.90 Cannabis use, unspecified, uncomplicated; F15.90 Other stimulant use, unspecified, uncomplicated; Z59.00 Homelessness unspecified; Z56.0 Unemployment, unspecified; Z90.89 Acquired absence of other organs; Z88.5 Allergy status to narcotic agent; Z79.899 Other long term (current) drug therapy; Z86.14 Personal history of Methicillin resistant Staphylococcus aureus infection
CPT/HCPCS: 36415; 71045; 80053; 83880; 85025; 85379; 93005; 93971; 99285

== ENCOUNTER 2023-01-11 11:26 | Emergency (ER) | payer MEDICARE, MEDICAID ==
[~2023-01-11] VITALS: Ht 180.3 cm; Wt 110.0 kg
[~2023-01-11 11:26] MED LIST changes: +CEPH-585 PO
[2023-01-11 11:51] VITALS: BP 128/87
[2023-01-11] MEDS ORDERED: CEPH-585 PO (13:14)
[2023-01-11] MEDS ORDERED: cephalexin 250mg capsule PO ONE (13:15)
== END 2023-01-11 13:33 | disposition home or self-care (01) ==
LOC: ER 11:26
DX: L02.412 Cutaneous abscess of left axilla (principal); R59.0 Localized enlarged lymph nodes; J44.9 Chronic obstructive pulmonary disease, unspecified; I50.9 Heart failure, unspecified; G89.29 Other chronic pain; M54.9 Dorsalgia, unspecified; F31.9 Bipolar disorder, unspecified; F20.9 Schizophrenia, unspecified; F12.10 Cannabis abuse, uncomplicated; F15.10 Other stimulant abuse, uncomplicated; Z59.00 Homelessness unspecified; Z56.0 Unemployment, unspecified; Z79.899 Other long term (current) drug therapy; Z79.1 Long term (current) use of non-steroidal anti-inflammatories (NSAID); Z79.2 Long term (current) use of antibiotics
CPT/HCPCS: 99283

== ENCOUNTER 2023-02-14 17:07 | Emergency (ER) | payer MEDICARE, MEDICAID ==
[~2023-02-14] VITALS: Ht 180.3 cm; Wt 110.5 kg
[2023-02-14 17:12] VITALS: BP 155/101
[2023-02-14] MEDS ORDERED: sulfamethoxazole/trimethoprim DS (800/160mg) tablet PO ONE (19:25)
[2023-02-14] MEDS ORDERED: cephalexin 250mg capsule PO ONE (19:25)
[2023-02-14] MEDS ORDERED: LIDOcaine 1% W/epiNEPHrine 1:100,000 20ml vial IJ ONE (19:36)
[2023-02-14] MEDS ORDERED: CEPH250T PO (19:38)
[2023-02-14] MEDS ORDERED: SULF1TAB45 PO (19:38)
== END 2023-02-14 20:06 | disposition home or self-care (01) ==
LOC: ER 17:08
DX: L02.214 Cutaneous abscess of groin (principal); J44.9 Chronic obstructive pulmonary disease, unspecified; I11.0 Hypertensive heart disease with heart failure; G92.9 Unspecified toxic encephalopathy; M54.9 Dorsalgia, unspecified; F31.9 Bipolar disorder, unspecified; F20.9 Schizophrenia, unspecified; F15.10 Other stimulant abuse, uncomplicated; Z59.00 Homelessness unspecified; Z56.0 Unemployment, unspecified; Z79.899 Other long term (current) drug therapy; Z79.1 Long term (current) use of non-steroidal anti-inflammatories (NSAID); Z79.2 Long term (current) use of antibiotics
CPT/HCPCS: 10060; 99283; A6266; A6449

== ENCOUNTER 2023-03-01 19:47 | Emergency (ER) | payer MEDICARE, MEDICAID ==
[~2023-03-01] VITALS: Ht 180.3 cm; Wt 113.3 kg
[~2023-03-01 19:47] MED LIST changes: +CEPH250T PO
[2023-03-01 19:49] VITALS: BP 186/73
[2023-03-01 21:34] LABS: CLARITY,URINE CLEAR (Clear); COLOR,URINE YELLOW (Yellow); GLUCOSE, URINE NEGATIVE (Neg); KETONES,URINE TRACE mg/dl (Neg); LEUKOCYTE ESTERASE ,URINE NEGATIVE (Neg); NITRITES, URINE NEGATIVE (Neg); OCCULT BLOOD,URINE TRACE-INTACT (Neg); PH,URINE 5.5 (4.8-8.0); PROTEIN,URINE NEGATIVE (Neg); UROBILINOGEN,URINE 0.2 E.U/dL (0.2-1.0)
[2023-03-01 21:42] LABS: UA COLLECTION TYPE CLN CATCH MIDSTREAM
[2023-03-01 21:48] LABS: BACTERIA,URINE NONE SEEN /HPF (Neg); MUCUS STRANDS MANY /LPF (Neg); RBC,URINE 0-2 /HPF (0-2); SQUAMOUS EPITHELIAL CELL,UR FEW /LPF (FEW); WBC,URINE 0-4 /HPF (0-4)
[2023-03-01] MEDS ORDERED: ketorolac trometh. 30mg/ml inj. IM ONE (22:00)
== END 2023-03-01 22:10 | disposition home or self-care (01) ==
LOC: ER 19:47
DX: R59.0 Localized enlarged lymph nodes (principal); R30.0 Dysuria; I50.9 Heart failure, unspecified; J44.9 Chronic obstructive pulmonary disease, unspecified; F12.90 Cannabis use, unspecified, uncomplicated; F15.90 Other stimulant use, unspecified, uncomplicated; G89.29 Other chronic pain; Z79.899 Other long term (current) drug therapy; Z85.118 Personal history of other malignant neoplasm of bronchus and lung; Z59.00 Homelessness unspecified; Z56.0 Unemployment, unspecified; Z86.16 Personal history of COVID-19; Z79.2 Long term (current) use of antibiotics
CPT/HCPCS: 81001; 96372; 99283; J1885

== ENCOUNTER 2023-04-27 02:52 | Emergency (ER) | payer MEDICARE, MEDICAID ==
[~2023-04-27] VITALS: Ht 180.3 cm; Wt 113.6 kg
[2023-04-27 03:03] VITALS: TEMP 98.9
[2023-04-27] MEDS ORDERED: albuterol 2.5 MG/3 ML nebule NEB STA (03:11)
[2023-04-27 03:36] LABS: BASOPHILS # (AUTO) 0.1 X10'3 (0-0.2); EOSINOPHILS # (AUTO) 0.3 X10'3 (0-0.9); EOSINOPHILS % (AUTO) 4.5 % (0-6); HEMATOCRIT 46.3 % (42.0-52.0); HEMOGLOBIN 15.5 g/dl (14.0-17.9); LYMPHOCYTES # (AUTO) 1.6 X10'3 (1.1-4.8); LYMPHOCYTES % (AUTO) 27.1 % (21-51); MEAN CORPUSCULAR HEMOGLOBIN 31.1 PG (27.0-31.0); MEAN CORPUSCULAR HGB CONC 33.5 g/dL (33.0-36.5); MEAN CORPUSCULAR VOLUME 92.9 FL (78-98); MEAN PLATELET VOLUME 8.1 FL (7.4-10.4); MONOCYTES # (AUTO) 0.5 X10'3 (0-0.9); MONOCYTES % (AUTO) 8.8 % (2-12); NEUTROPHILS # (AUTO) 3.4 X10'3 (1.8-7.7); NEUTROPHILS % (AUTO) 58.6 % (42-75); PLATELET COUNT 183 X10'3 (140-440); RED BLOOD COUNT 4.98 X10'6 (4.70-6.10); RED CELL DISTRIBUTION WIDTH 13.8 % (11.5-14.5); WHITE BLOOD COUNT 5.7 X10'3 (4.5-11.0)
[2023-04-27 03:45] LABS: ALANINE AMINOTRANSFERASE 50 U/L (12-78); ALBUMIN 3.9 G/DL (3.4-5.0); ALBUMIN/GLOBULIN RATIO 1.1 (1.1-1.5); ALKALINE PHOSPHATASE 68 IU/L (46-116); ANION GAP 7 (8-16); ASPARTATE AMINO TRANSFERASE 25 U/L (10-37); BILIRUBIN,TOTAL 0.2 MG/DL (0.1-1.0); BLOOD UREA NITROGEN 18 MG/DL (7-18); BUN/CREATININE RATIO 17.1 (10.0-20.0); CALCIUM 8.8 MG/DL (8.5-10.1); CHLORIDE 107 MMOL/L (99-107); CREATININE 1.05 MG/DL (0.60-1.10); GLUCOSE 119 MG/DL (70-104); SODIUM 145 MMOL/L (135-145); TOTAL CARBON DIOXIDE 31.4 MMOL/L (24-32); TOTAL PROTEIN 7.6 G/DL (6.4-8.2); eCRCL 81 ML/MIN; eGFR 72 ML/MIN
[2023-04-27 03:49] LABS: PRO BRAIN NATRIURETIC PEPTIDE 39 PG/ML (0-125)
[2023-04-27 03:56] VITALS: PULSE 82; RESP 2; O2SAT 95
[2023-04-27 04:06] VITALS: PULSE 80; RESP 22; O2SAT 95
[2023-04-27 04:09] LABS: POTASSIUM 4.1 MMOL/L (3.5-5.1)
[2023-04-27] MEDS ORDERED: methylPREDNISolone sod succ 125mg/2ml vial IV ONE (04:45)
[2023-04-27 04:46] VITALS: BP 151/100; PULSE 78; RESP 24; O2SAT 95
[2023-04-27] MEDS ORDERED: iohexol 350MG/ML 100ml bottle IV ONE (04:50)
[2023-04-27] MEDS ORDERED: LEVO-65 PO (06:16)
[2023-04-27] MEDS ORDERED: PRED20TA PO (06:18)
[2023-04-27 06:48] LABS: BILIRUBIN,URINE NEGATIVE (Neg); CLARITY,URINE CLEAR (Clear); COLOR,URINE YELLOW (Yellow); GLUCOSE, URINE NEGATIVE (Neg); KETONES,URINE NEGATIVE (Neg); LEUKOCYTE ESTERASE ,URINE NEGATIVE (Neg); NITRITES, URINE NEGATIVE (Neg); OCCULT BLOOD,URINE NEGATIVE (Neg); PH,URINE 5.5 (4.8-8.0); PROTEIN,URINE NEGATIVE (Neg); UROBILINOGEN,URINE 0.2 E.U/dL (0.2-1.0)
[2023-04-27 07:05] LABS: UA COLLECTION TYPE VOIDED
[2023-04-28] MEDS ORDERED: CYCL-1 PO (15:29)
[2023-04-28] MEDS ORDERED: PRED20TA PO (15:29)
[2023-04-28] MEDS ORDERED: ALBU18HF2 INH (15:29)
[2023-04-28] MEDS ORDERED: HYDR-3973 PO (15:29)
[2023-04-28] MEDS ORDERED: LEVO-65 PO (15:29)
== END 2023-04-27 06:38 | disposition home or self-care (01) ==
LOC: ER 02:52
DX: J44.1 Chronic obstructive pulmonary disease with (acute) exacerbation (principal); Z20.822 Contact with and (suspected) exposure to COVID-19; J06.9 Acute upper respiratory infection, unspecified; I50.9 Heart failure, unspecified; G89.29 Other chronic pain; F12.90 Cannabis use, unspecified, uncomplicated; F15.90 Other stimulant use, unspecified, uncomplicated; F17.210 Nicotine dependence, cigarettes, uncomplicated; Z56.0 Unemployment, unspecified; Z59.00 Homelessness unspecified; Z85.118 Personal history of other malignant neoplasm of bronchus and lung; Z79.2 Long term (current) use of antibiotics; Z79.899 Other long term (current) drug therapy; Z92.21 Personal history of antineoplastic chemotherapy; Z51.0 Encounter for antineoplastic radiation therapy
CPT/HCPCS: 36415; 71045; 71275; 80053; 81003; 83605; 83880; 84145; 84484; 85025; 87040; 87502; 87503; 87811; 93005; 94640; 96374; 99285; J2930; J3490; Q9967; 94760

== ENCOUNTER 2023-04-28 10:48 | Emergency (ER) | payer MEDICARE, MEDICAID ==
[~2023-04-28] VITALS: Ht 180.3 cm; Wt 104.6 kg
[~2023-04-28 10:48] MED LIST changes: +LEVO-65 PO; +PRED20TA PO
[2023-04-28 11:34] LABS: BASOPHILS % (AUTO) 0.4 % (0-1); EOSINOPHILS # (AUTO) 0.1 X10'3 (0-0.9); EOSINOPHILS % (AUTO) 0.7 % (0-6); HEMATOCRIT 43.8 % (42.0-52.0); HEMOGLOBIN 14.7 g/dl (14.0-17.9); LYMPHOCYTES # (AUTO) 0.8 X10'3 (1.1-4.8); LYMPHOCYTES % (AUTO) 10.3 % (21-51); MEAN CORPUSCULAR HEMOGLOBIN 30.9 PG (27.0-31.0); MEAN CORPUSCULAR HGB CONC 33.5 g/dL (33.0-36.5); MEAN CORPUSCULAR VOLUME 92.1 FL (78-98); MEAN PLATELET VOLUME 7.6 FL (7.4-10.4); MONOCYTES # (AUTO) 0.4 X10'3 (0-0.9); MONOCYTES % (AUTO) 5.1 % (2-12); NEUTROPHILS # (AUTO) 6.7 X10'3 (1.8-7.7); NEUTROPHILS % (AUTO) 83.5 % (42-75); PLATELET COUNT 164 X10'3 (140-440); RED BLOOD COUNT 4.76 X10'6 (4.70-6.10); RED CELL DISTRIBUTION WIDTH 13.4 % (11.5-14.5)
[2023-04-28 11:50] LABS: ALANINE AMINOTRANSFERASE 52 U/L (12-78); ALBUMIN 3.6 G/DL (3.4-5.0); ALKALINE PHOSPHATASE 58 IU/L (46-116); ANION GAP 8 (8-16); ASPARTATE AMINO TRANSFERASE 26 U/L (10-37); BILIRUBIN,TOTAL 0.3 MG/DL (0.1-1.0); BLOOD UREA NITROGEN 20 MG/DL (7-18); CHLORIDE 107 MMOL/L (99-107); CREATININE 1.11 MG/DL (0.60-1.10); ETHANOL < 10 MG/DL (<10); GLUCOSE 133 MG/DL (70-104); POTASSIUM 3.9 MMOL/L (3.5-5.1); SODIUM 142 MMOL/L (135-145); TOTAL CARBON DIOXIDE 27.4 MMOL/L (24-32); TOTAL PROTEIN 7.1 G/DL (6.4-8.2); eCRCL 76 ML/MIN; eGFR 68 ML/MIN
[2023-04-28 12:22] LABS: URINE AMPHETAMINE SCREEN NEGATIVE (Neg); URINE BARBITUATE SCREEN NEGATIVE (Neg); URINE BENZODIAZEPINES SCREEN NEGATIVE (Neg); URINE CANNABINOID SCREEN POSITIVE (Neg); URINE COCAINE SCREEN NEGATIVE (Neg); URINE METHADONE SCREEN NEGATIVE (Neg); URINE OPIATE SCREEN POSITIVE (Neg); URINE PHENCYCLIDINE SCREEN NEGATIVE (Neg)
--- NOTE | 2023-04-28 12:41 | NUR ---
PT IS IN ROOM RESTING WITH EYES CLOSED. NO SIGNS OR SYMPTOMS OF DISTRESS NOTED. RESPIRATIONS APPEAR EVEN AND UNLABORED.
[2023-04-28 13:00] LABS: BILIRUBIN,URINE SMALL (Neg); CLARITY,URINE SLIGHTLY CLOUDY (Clear); GLUCOSE, URINE NEGATIVE (Neg); KETONES,URINE TRACE mg/dl (Neg); LEUKOCYTE ESTERASE ,URINE NEGATIVE (Neg); NITRITES, URINE NEGATIVE (Neg); OCCULT BLOOD,URINE NEGATIVE (Neg); PH,URINE 5.5 (4.8-8.0); PROTEIN,URINE 100 mg/dl (Neg); UROBILINOGEN,URINE 0.2 E.U/dL (0.2-1.0)
[2023-04-28 13:02] LABS: COLOR,URINE DARK YELLOW (Yellow); UA COLLECTION TYPE NON-SPECIFIED
[2023-04-28 13:12] LABS: THYROID STIMULATING HORMONE 1.08 ulU/ml (0.34-4.50)
--- NOTE | 2023-04-28 13:15 | NUR ---
Patient attempting to lower the head of his bed. No distress observed. Continue to monitor.
[2023-04-28 13:18] LABS: WBC,URINE 0-4 /HPF (0-4)
[2023-04-28 13:19] LABS: BACTERIA,URINE FEW /HPF (Neg); CAL OXALATE CRYSTALS 3+ /HPF (NEGATIVE); FINE GRANULAR CAST 0-3 /LPF (NEGATIVE); HYALINE CASTS 0-3 /LPF (NEGATIVE); MUCUS STRANDS FEW /LPF (Neg); RBC,URINE NONE SEEN /HPF (0-2); SQUAMOUS EPITHELIAL CELL,UR FEW /LPF (FEW)
--- NOTE | 2023-04-28 13:33 | NUR ---
pt came from ER @[id number]
--- NOTE | 2023-04-28 13:41 | NUR ---
Patient got very anxious and stated he was going home. RN and sierra advised patient that he was on a hold and could not leave. Patient kept walking out to the old Security and out to the west side of the hospital. Sierra Pryor followed him but could not stop him. Security was called. But patient was too far to cach. RN to call [employer].
--- NOTE | 2023-04-28 14:03 | NUR ---
RN called [employer] and then called patient's to advise her that patient was on his way home. Per Dr. Ruby patient had made threats to kill his . Jhony answered the phone. RN advised Jhony that the police were on there way to his house to bring him back because he was on a hold. Patient stated he left because he wasn't getting any help. RN explained that it takes time to get patient the help he needs. Patient was calm and cooperative.
--- NOTE | 2023-04-28 14:27 | NUR ---
1420 RN spoke to [employer] who stated they were on their way to black pickler patient. 1426, [employer] arrived with patient. Patient is calm and cooperative. Continue to monitor.
--- NOTE | 2023-04-28 14:32 | NUR ---
pt was brought back and picked up from pts home and now is back in room. pt walked out and [employer]pd brought him back.
--- NOTE | 2023-04-28 15:20 | NUR ---
ELLY, Thuy, evaluating patient. No distress observed. Continue to monitor.
[2023-04-28] MEDS ORDERED: LEVO-65 PO (15:29)
[2023-04-28] MEDS ORDERED: CYCL-1 PO (15:29)
[2023-04-28] MEDS ORDERED: HYDR-3973 PO (15:29)
[2023-04-28] MEDS ORDERED: PRED20TA PO (15:29)
[2023-04-28] MEDS ORDERED: ALBU18HF2 INH (15:29)
--- NOTE | 2023-04-28 17:09 | NUR ---
Patient reclining in bed. No distress observed at this time. Continue to monitor.
[2023-04-28] MEDS ORDERED: cyclobenzaprine 10mg tablet PO PRN (17:15)
[2023-04-28] MEDS ORDERED: albuterol 2.5 MG/3 ML nebule NEB PRN (17:15)
--- NOTE | 2023-04-28 17:32 | NUR ---
Patient eating dinner. No distress observed. Continue to monitor.
--- NOTE | 2023-04-28 18:47 | NUR ---
Daughter Jenn [phone]
--- NOTE | 2023-04-28 18:49 | NUR ---
Pt sleeping at change of shift. Pt's called asking for the cell phone as its their only phone. Pt stated that he doesnt have the phone and there is not one listed on the belonging list.
[2023-04-28] MEDS: HYDROcodone/acetaminophen 10/325mg tab PO SCH (20:09)
[2023-04-28] MEDS: gabapentin 300mg capsule PO SCH (20:09)
--- NOTE | 2023-04-28 23:56 | NUR ---
Pt appears to be sleeping
--- NOTE | 2023-04-29 03:39 | NUR ---
Pt appears to be sleeping
[2023-04-29 05:45] VITALS: BP 160/106; PULSE 67; TEMP 99.1; O2SAT 99
--- NOTE | 2023-04-29 06:34 | NUR ---
Patient sleeping prone. Respirations nonlabored. No distress observed at this time. Continue to monitor.
[2023-04-29] MEDS ORDERED: levoFLOXACIN 500mg tablet PO SCH (08:00)
[2023-04-29] MEDS ORDERED: predniSONE 20 mg tablet PO SCH (08:00)
[2023-04-29 08:07] VITALS: RESP 16
[2023-04-29] MEDS: HYDROcodone/acetaminophen 10/325mg tab PO SCH (08:07)
[2023-04-29] MEDS: gabapentin 300mg capsule PO SCH (08:07)
--- NOTE | 2023-04-29 08:15 | NUR ---
Patient sitting up and eating breakfast. No distress observed. Continue to monitor.
[2023-04-29] MEDS ORDERED: gabapentin 300mg capsule PO ONE (08:20)
--- NOTE | 2023-04-29 08:58 | NUR ---
Patient not in his room and RN saw patient go to the far bathroom earlier. Patient had eloped yesterday. Tech checked the BR and patient was not in there. RN called Yung and called patient's . Patient had not arrived at the house. Security also called.
--- NOTE | 2023-04-29 09:45 | NUR ---
RN called Brie to advise of concern that patient had plan to kill himself. Noted by Brie.
== END 2023-04-29 09:00 | disposition left against medical advice (07) ==
LOC: ER 10:49
DX: R45.851 Suicidal ideations (principal); Z20.822 Contact with and (suspected) exposure to COVID-19
CPT/HCPCS: 36415; 80053; 80305; 80320; 81001; 84443; 85025; 87811; 99285; A4314; C1758

== ENCOUNTER 2023-10-19 19:44 | Emergency (ER) | payer MEDICARE, MEDICAID ==
[~2023-10-19] VITALS: Ht 180.3 cm; Wt 113.6 kg
[~2023-10-19 19:44] MED LIST changes: +ALBU18HF2 INH; -CEPH-585 PO; -CEPH250T PO; +CYCL-1 PO; +HYDR-3973 PO; -HYDR-4383 PO; -LIDO30CR TOP; -MECL-159 PO; -NAPR-996 PO; -UMEC1DIS INH
[2023-10-19 20:11] VITALS: BP 164/90; PULSE 86; TEMP 98; O2SAT 95
[2023-10-19] MEDS: cyclobenzaprine 10mg tablet PO ONE (20:45)
[2023-10-19] MEDS ORDERED: LIDO700A32 TOP (20:49)
[2023-10-19] MEDS ORDERED: PRED20TA PO (20:49)
[2023-10-19] MEDS: ketorolac trometh inj. 60 MG/2 ML VIAL IM ONE (20:50)
[2023-10-19] MEDS: dexamethasone sod phosphate 10mg/ml inj IM STA (20:51)
[2023-10-19 20:53] VITALS: RESP 18
[2023-10-19] MEDS: HYDROcodone/acetaminophen 5mg/325mg tablet PO ONE (20:53)
[2023-10-19] MEDS ORDERED: CYCL-1 PO (21:18)
== END 2023-10-19 21:12 | disposition home or self-care (01) ==
LOC: ER 19:45
DX: M54.41 Lumbago with sciatica, right side (principal); R06.02 Shortness of breath; I50.9 Heart failure, unspecified; F20.9 Schizophrenia, unspecified; J44.9 Chronic obstructive pulmonary disease, unspecified; F15.90 Other stimulant use, unspecified, uncomplicated; Z59.00 Homelessness unspecified; Z56.0 Unemployment, unspecified; Z79.52 Long term (current) use of systemic steroids; Z79.891 Long term (current) use of opiate analgesic; Z79.899 Other long term (current) drug therapy
CPT/HCPCS: 96372; 99284; J1100; J1885; 72100

== ENCOUNTER 2024-07-14 22:06 | Emergency (ER) | payer MEDICARE, MEDICAID ==
[~2024-07-14] VITALS: Ht 180.3 cm; Wt 94.5 kg
[~2024-07-14 22:06] MED LIST changes: +ALB0.5UD IH; +BUDE10.2 INH; +BUPR-72 PO; -LEVO-65 PO; +NICO-687 TD; +NICO-907 BC; +NOR5T PO; +PANT-47 PO; -PRED20TA PO
[2024-07-14 22:23] VITALS: BP 146/89; PULSE 81; RESP 16; TEMP 98.6; O2SAT 99
[2024-07-14] MEDS ORDERED: CEPH-585 PO (22:57)
[2024-07-14] MEDS: ondansetron 4mg rapidly disintigrating tab PO ONE (23:06)
[2024-07-14] MEDS: cephalexin 250mg capsule PO ONE (23:07)
== END 2024-07-14 23:14 | disposition home or self-care (01) ==
LOC: ER 22:08
DX: H60.02 Abscess of left external ear (principal); H92.02 Otalgia, left ear; J44.9 Chronic obstructive pulmonary disease, unspecified; F20.9 Schizophrenia, unspecified; F31.9 Bipolar disorder, unspecified; F12.90 Cannabis use, unspecified, uncomplicated; Z88.5 Allergy status to narcotic agent; Z88.8 Allergy status to other drugs, medicaments and biological substances; Z85.118 Personal history of other malignant neoplasm of bronchus and lung; Z87.19 Personal history of other diseases of the digestive system; Z90.89 Acquired absence of other organs
CPT/HCPCS: 99283

== ENCOUNTER 2024-07-17 10:42 | Emergency (ER) | payer MEDICARE, MEDICAID ==
[~2024-07-17] VITALS: Ht 180.3 cm; Wt 103.0 kg
[~2024-07-17 10:42] MED LIST changes: +CEPH-585 PO
[2024-07-17 10:48] VITALS: TEMP 98.8
[2024-07-17] MEDS ORDERED: SULF1TAB45 PO (11:01)
[2024-07-17 11:12] VITALS: BP 137/86; PULSE 88; RESP 20; O2SAT 94
== END 2024-07-17 11:14 | disposition home or self-care (01) ==
LOC: ER 10:42
DX: H60.12 Cellulitis of left external ear (principal); I50.9 Heart failure, unspecified; J44.9 Chronic obstructive pulmonary disease, unspecified; G89.29 Other chronic pain; M54.9 Dorsalgia, unspecified; F31.9 Bipolar disorder, unspecified; F20.9 Schizophrenia, unspecified; F12.90 Cannabis use, unspecified, uncomplicated; F15.90 Other stimulant use, unspecified, uncomplicated; Z85.118 Personal history of other malignant neoplasm of bronchus and lung; Z59.00 Homelessness unspecified; Z56.0 Unemployment, unspecified; Z79.899 Other long term (current) drug therapy; Z79.51 Long term (current) use of inhaled steroids
CPT/HCPCS: 99283

== ENCOUNTER 2024-08-29 14:30 | Emergency (ER) | payer MEDICARE, MEDICAID ==
[~2024-08-29] VITALS: Ht 180.3 cm; Wt 109.0 kg
[~2024-08-29 14:30] MED LIST changes: -CEPH-585 PO
[2024-08-29 14:36] VITALS: BP 154/106; PULSE 77; RESP 16; TEMP 97.4; O2SAT 96
== END 2024-08-29 16:03 | disposition left against medical advice (07) ==
LOC: ER 14:30
DX: U07.1 COVID-19 (principal); Z53.21 Procedure and treatment not carried out due to patient leaving prior to being seen by health care provider

== ENCOUNTER 2024-09-13 11:55 | Emergency (ER) | payer MEDICARE, MEDICAID ==
[~2024-09-13] VITALS: Ht 180.3 cm; Wt 104.5 kg
[2024-09-13] MEDS: ondansetron/PF 4mg/2ml inj IV ONE (12:33)
[2024-09-13] MEDS: methylPREDNISolone sod succ 125mg/2ml vial IV ONE (12:33)
[2024-09-13] MEDS: ipratropium/albuterol 3ml nebule NEB ONE (12:37)
[2024-09-13 12:40] VITALS: PULSE 91; RESP 20; O2SAT 92
[2024-09-13 12:42] LABS: BASOPHILS % (AUTO) 0.5 % (0-1); EOSINOPHILS # (AUTO) 0.1 X10'3 (0-0.9); EOSINOPHILS % (AUTO) 1.8 % (0-6); HEMATOCRIT 37.9 % (42.0-52.0); HEMOGLOBIN 12.3 g/dl (14.0-17.9); LYMPHOCYTES # (AUTO) 0.9 X10'3 (1.1-4.8); LYMPHOCYTES % (AUTO) 14.7 % (21-51); MEAN CORPUSCULAR HEMOGLOBIN 28.7 PG (27.0-31.0); MEAN CORPUSCULAR HGB CONC 32.4 g/dL (33.0-36.5); MEAN CORPUSCULAR VOLUME 88.6 FL (78-98); MEAN PLATELET VOLUME 8.2 FL (7.4-10.4); MONOCYTES # (AUTO) 0.6 X10'3 (0-0.9); MONOCYTES % (AUTO) 9.1 % (2-12); NEUTROPHILS # (AUTO) 4.5 X10'3 (1.8-7.7); NEUTROPHILS % (AUTO) 73.9 % (42-75); PLATELET COUNT 254 X10'3 (140-440); RED BLOOD COUNT 4.28 X10'6 (4.70-6.10); RED CELL DISTRIBUTION WIDTH 15.5 % (11.5-14.5); WHITE BLOOD COUNT 6.1 X10'3 (4.5-11.0)
[2024-09-13 12:44] VITALS: PULSE 90; RESP 20; O2SAT 93
[2024-09-13 12:54] LABS: INR 1.2 INR; PROTHROMBIN TIME 12.2 SECONDS (9.0-12.0)
[2024-09-13 12:59] LABS: ALANINE AMINOTRANSFERASE 84 U/L (12-78); ALBUMIN 2.9 G/DL (3.4-5.0); ALBUMIN/GLOBULIN RATIO 0.6 (1.1-1.5); ALKALINE PHOSPHATASE 138 IU/L (46-116); ANION GAP 8 (8-16); ASPARTATE AMINO TRANSFERASE 107 U/L (10-37); BILIRUBIN,TOTAL 0.5 MG/DL (0.1-1.0); BLOOD UREA NITROGEN 25 MG/DL (7-18); CHLORIDE 103 MMOL/L (99-107); CREATININE 1.47 MG/DL (0.60-1.10); GLUCOSE 175 MG/DL (70-104); POTASSIUM 4.5 MMOL/L (3.5-5.1); SODIUM 139 MMOL/L (135-145); TOTAL PROTEIN 7.5 G/DL (6.4-8.2); eCRCL 56 ML/MIN; eGFR 49 ML/MIN
[2024-09-13 13:07] LABS: BILIRUBIN,DIRECT 0.3 MG/DL (0-0.3); LIPASE 22 U/L (16-77); PRO BRAIN NATRIURETIC PEPTIDE 362 PG/ML (0-125)
[2024-09-13] MEDS: morphine 2 MG/ML inj. syringe IV PRN (13:19)
[2024-09-13 14:03] LABS: BILIRUBIN,URINE SMALL (Neg); COLOR,URINE YELLOW (Yellow); GLUCOSE, URINE NEGATIVE (Neg); KETONES,URINE TRACE mg/dl (Neg); LEUKOCYTE ESTERASE ,URINE NEGATIVE (Neg); OCCULT BLOOD,URINE NEGATIVE (Neg); PH,URINE 5.5 (4.8-8.0); PROTEIN,URINE >=300 mg/dl (Neg)
[2024-09-13] MEDS: CefTRIAXone/D5W-Rocephin 1gm 50 ML IV ONE (14:03)
[2024-09-13 14:04] LABS: CLARITY,URINE SLIGHTLY CLOUDY (Clear); NITRITES, URINE NEGATIVE (Neg); UA COLLECTION TYPE URINAL
[2024-09-13 14:10] LABS: URINE AMPHETAMINE SCREEN NEGATIVE (Neg); URINE BARBITUATE SCREEN NEGATIVE (Neg); URINE BENZODIAZEPINES SCREEN NEGATIVE (Neg); URINE CANNABINOID SCREEN POSITIVE (Neg); URINE COCAINE SCREEN NEGATIVE (Neg); URINE METHADONE SCREEN NEGATIVE (Neg); URINE OPIATE SCREEN POSITIVE (Neg); URINE PHENCYCLIDINE SCREEN NEGATIVE (Neg)
[2024-09-13 14:11] LABS: BACTERIA,URINE FEW /HPF (Neg); RBC,URINE 0-2 /HPF (0-2); SQUAMOUS EPITHELIAL CELL,UR FEW /LPF (FEW); WBC,URINE 0-4 /HPF (0-4)
[2024-09-13 14:12] LABS: COARSE GRANULAR CAST 0-3 /LPF (NEGATIVE); HYALINE CASTS >30 /LPF (NEGATIVE)
[2024-09-13] MEDS ORDERED: PRED20TA PO (14:44)
[2024-09-13] MEDS ORDERED: AMOX-117 PO (14:44)
[2024-09-13] MEDS ORDERED: AZIT-21 PO (14:44)
[2024-09-13] MEDS ORDERED: ALBU18HF2 INH (14:44)
[2024-09-13 15:10] VITALS: BP 140/79; PULSE 82; RESP 18; TEMP 98.3; O2SAT 91
== END 2024-09-13 15:16 | disposition home or self-care (01) ==
LOC: ER 11:56
DX: R10.84 Generalized abdominal pain (principal); J18.9 Pneumonia, unspecified organism; K59.00 Constipation, unspecified; J44.9 Chronic obstructive pulmonary disease, unspecified; I50.9 Heart failure, unspecified; G89.29 Other chronic pain; M54.9 Dorsalgia, unspecified; F20.9 Schizophrenia, unspecified; F31.9 Bipolar disorder, unspecified; F12.90 Cannabis use, unspecified, uncomplicated; F15.90 Other stimulant use, unspecified, uncomplicated; Z90.89 Acquired absence of other organs; Z85.118 Personal history of other malignant neoplasm of bronchus and lung; Z56.0 Unemployment, unspecified; Z59.00 Homelessness unspecified; Z79.899 Other long term (current) drug therapy; Z79.52 Long term (current) use of systemic steroids
CPT/HCPCS: 36415; 71045; 71250; 76700; 80048; 80076; 80305; 81001; 82140; 83605; 83690; 83880; 84145; 84484; 85025; 85610; 87040; 93005; 94640; 96374; 96375; 99285; J0696; J2270; J2405; J2919; 94760

== ENCOUNTER 2024-10-08 11:03 | Emergency (ER) | payer MEDICARE, MEDICAID ==
[~2024-10-08] VITALS: Ht 180.3 cm; Wt 106.1 kg
[~2024-10-08 11:03] MED LIST changes: +AMOX-117 PO; +AZIT-21 PO; +PRED20TA PO
[2024-10-08 11:32] LABS: BASOPHILS % (AUTO) 0.7 % (0-1); EOSINOPHILS # (AUTO) 0.1 X10'3 (0-0.9); EOSINOPHILS % (AUTO) 3.3 % (0-6); HEMATOCRIT 38.1 % (42.0-52.0); HEMOGLOBIN 12.6 g/dl (14.0-17.9); LYMPHOCYTES # (AUTO) 0.7 X10'3 (1.1-4.8); LYMPHOCYTES % (AUTO) 23.3 % (21-51); MEAN CORPUSCULAR HEMOGLOBIN 28.6 PG (27.0-31.0); MEAN CORPUSCULAR VOLUME 86.6 FL (78-98); MEAN PLATELET VOLUME 7.8 FL (7.4-10.4); MONOCYTES # (AUTO) 0.4 X10'3 (0-0.9); MONOCYTES % (AUTO) 12.2 % (2-12); NEUTROPHILS # (AUTO) 1.8 X10'3 (1.8-7.7); NEUTROPHILS % (AUTO) 60.5 % (42-75); PLATELET COUNT 169 X10'3 (140-440); RED CELL DISTRIBUTION WIDTH 15.9 % (11.5-14.5)
[2024-10-08 11:54] LABS: ALANINE AMINOTRANSFERASE 35 U/L (12-78); ALBUMIN 2.9 G/DL (3.4-5.0); ALBUMIN/GLOBULIN RATIO 0.6 (1.1-1.5); ALKALINE PHOSPHATASE 136 IU/L (46-116); ANION GAP 5 (8-16); ASPARTATE AMINO TRANSFERASE 57 U/L (10-37); BILIRUBIN,TOTAL 0.4 MG/DL (0.1-1.0); BLOOD UREA NITROGEN 23 MG/DL (7-18); BUN/CREATININE RATIO 16.2 (10.0-20.0); CALCIUM 9.1 MG/DL (8.5-10.1); CHLORIDE 106 MMOL/L (99-107); CREATININE 1.42 MG/DL (0.60-1.10); GLUCOSE 103 MG/DL (70-104); POTASSIUM 4.3 MMOL/L (3.5-5.1); SODIUM 142 MMOL/L (135-145); TOTAL CARBON DIOXIDE 30.7 MMOL/L (24-32); TOTAL PROTEIN 7.8 G/DL (6.4-8.2); eCRCL 58 ML/MIN; eGFR 51 ML/MIN
[2024-10-08 12:03] LABS: PRO BRAIN NATRIURETIC PEPTIDE 186 PG/ML (0-125)
[2024-10-08 12:36] LABS: PLATELET ESTIMATE NORMAL; TOTAL CELLS COUNTED 100
[2024-10-08 12:46] VITALS: TEMP 98.9
[2024-10-08 15:06] VITALS: BP 146/96; PULSE 87; RESP 16; O2SAT 96
== END 2024-10-08 15:08 | disposition home or self-care (01) ==
LOC: ER 11:03
DX: R07.9 Chest pain, unspecified (principal); M79.604 Pain in right leg; F20.9 Schizophrenia, unspecified; F31.9 Bipolar disorder, unspecified; I50.9 Heart failure, unspecified; J44.9 Chronic obstructive pulmonary disease, unspecified; Z85.118 Personal history of other malignant neoplasm of bronchus and lung; F12.90 Cannabis use, unspecified, uncomplicated; F15.90 Other stimulant use, unspecified, uncomplicated; Z90.89 Acquired absence of other organs
CPT/HCPCS: 36415; 71045; 80053; 83880; 84484; 85007; 85025; 93005; 93971; 99285

== ENCOUNTER 2024-10-14 21:25 | Emergency (ER) | payer MEDICARE, MEDICAID ==
[~2024-10-14] VITALS: Ht 180.3 cm; Wt 103.1 kg
[2024-10-14 21:53] VITALS: TEMP 96.3
[2024-10-15] MEDS: famotidine/PF 10 mg/ml inj IV ONE (00:35)
[2024-10-15] MEDS: proCHLORperazine 10 MG/2 ml inj IV ONE (00:35)
[2024-10-15] MEDS: pantoprazole 40 MG vial IV ONE (00:35)
[2024-10-15] MEDS: ondansetron/PF 4mg/2ml inj IV ONE (00:35)
[2024-10-15] MEDS: normal saline 1000ML IV soln IV ONE (00:37)
[2024-10-15 00:40] LABS: BASOPHILS % (AUTO) 0.6 % (0-1); EOSINOPHILS # (AUTO) 0.1 X10'3 (0-0.9); EOSINOPHILS % (AUTO) 1.5 % (0-6); HEMATOCRIT 36.8 % (42.0-52.0); HEMOGLOBIN 12.1 g/dl (14.0-17.9); LYMPHOCYTES % (AUTO) 21.7 % (21-51); MEAN CORPUSCULAR HEMOGLOBIN 28.1 PG (27.0-31.0); MEAN CORPUSCULAR HGB CONC 32.8 g/dL (33.0-36.5); MEAN CORPUSCULAR VOLUME 85.5 FL (78-98); MEAN PLATELET VOLUME 7.8 FL (7.4-10.4); MONOCYTES # (AUTO) 0.5 X10'3 (0-0.9); MONOCYTES % (AUTO) 11.3 % (2-12); NEUTROPHILS # (AUTO) 2.9 X10'3 (1.8-7.7); NEUTROPHILS % (AUTO) 64.9 % (42-75); PLATELET COUNT 215 X10'3 (140-440); RED CELL DISTRIBUTION WIDTH 15.8 % (11.5-14.5); WHITE BLOOD COUNT 4.5 X10'3 (4.5-11.0)
[2024-10-15] MEDS: morphine 4 MG/ML inj SYRINge IV ONE (00:53)
[2024-10-15 01:17] LABS: ALBUMIN 2.8 G/DL (3.4-5.0); ANION GAP 8 (8-16); BLOOD UREA NITROGEN 22 MG/DL (7-18); BUN/CREATININE RATIO 14.1 (10.0-20.0); CHLORIDE 103 MMOL/L (99-107); CREATININE 1.56 MG/DL (0.60-1.10); GLUCOSE 95 MG/DL (70-104); MAGNESIUM 1.8 MG/DL (1.5-2.4); POTASSIUM 3.9 MMOL/L (3.5-5.1); SODIUM 138 MMOL/L (135-145); TOTAL CARBON DIOXIDE 27.1 MMOL/L (24-32); eCRCL 53 ML/MIN; eGFR 45 ML/MIN
[2024-10-15 01:45] LABS: BILIRUBIN,URINE NEGATIVE (Neg); CLARITY,URINE CLEAR (Clear); COLOR,URINE YELLOW (Yellow); GLUCOSE, URINE NEGATIVE (Neg); KETONES,URINE NEGATIVE (Neg); LEUKOCYTE ESTERASE ,URINE NEGATIVE (Neg); NITRITES, URINE NEGATIVE (Neg); OCCULT BLOOD,URINE NEGATIVE (Neg); PROTEIN,URINE 100 mg/dl (Neg); UROBILINOGEN,URINE 0.2 E.U/dL (0.2-1.0)
[2024-10-15] MEDS ORDERED: ONDA-245 PO (01:47)
[2024-10-15 01:51] LABS: UA COLLECTION TYPE URINAL
[2024-10-15 01:53] LABS: BACTERIA,URINE FEW /HPF (Neg); RBC,URINE NONE SEEN /HPF (0-2); SQUAMOUS EPITHELIAL CELL,UR FEW /LPF (FEW); WBC,URINE 0-4 /HPF (0-4)
[2024-10-15 02:05] VITALS: BP 166/105; PULSE 81; RESP 18; O2SAT 96
== END 2024-10-15 02:11 | disposition home or self-care (01) ==
LOC: ER 21:26
DX: R11.10 Vomiting, unspecified (principal); R10.13 Epigastric pain; F12.90 Cannabis use, unspecified, uncomplicated; F15.90 Other stimulant use, unspecified, uncomplicated; J44.9 Chronic obstructive pulmonary disease, unspecified; I50.9 Heart failure, unspecified; G89.29 Other chronic pain; M54.9 Dorsalgia, unspecified; F31.9 Bipolar disorder, unspecified; F20.9 Schizophrenia, unspecified; Z85.118 Personal history of other malignant neoplasm of bronchus and lung; Z90.89 Acquired absence of other organs; Z56.0 Unemployment, unspecified; Z59.00 Homelessness unspecified; Z79.899 Other long term (current) drug therapy
CPT/HCPCS: 36415; 71045; 80048; 81001; 83605; 83735; 84145; 84484; 85025; 87040; 93005; 96361; 96374; 96375; 99285; J0780; J2270; J2405; J2470; J3490; J7030; 99284

== ENCOUNTER 2024-11-09 19:50 | Emergency (ER) | payer MEDICAID, MEDICARE ==
[~2024-11-09] VITALS: Ht 180.3 cm; Wt 102.3 kg
[~2024-11-09 19:50] MED LIST changes: +ONDA-245 PO
[2024-11-09 20:12] VITALS: BP 130/88; PULSE 71; RESP 20; TEMP 98.2; O2SAT 94
[2024-11-09 20:25] LABS: BASOPHILS % (AUTO) 0.8 % (0-1); EOSINOPHILS # (AUTO) 0.1 X10'3 (0-0.9); EOSINOPHILS % (AUTO) 1.4 % (0-6); HEMATOCRIT 34.9 % (42.0-52.0); HEMOGLOBIN 11.3 g/dl (14.0-17.9); LYMPHOCYTES # (AUTO) 0.8 X10'3 (1.1-4.8); LYMPHOCYTES % (AUTO) 18.4 % (21-51); MEAN CORPUSCULAR HEMOGLOBIN 26.9 PG (27.0-31.0); MEAN CORPUSCULAR HGB CONC 32.3 g/dL (33.0-36.5); MEAN CORPUSCULAR VOLUME 83.4 FL (78-98); MEAN PLATELET VOLUME 7.7 FL (7.4-10.4); MONOCYTES # (AUTO) 0.4 X10'3 (0-0.9); MONOCYTES % (AUTO) 8.9 % (2-12); NEUTROPHILS # (AUTO) 2.9 X10'3 (1.8-7.7); NEUTROPHILS % (AUTO) 70.5 % (42-75); PLATELET COUNT 222 X10'3 (140-440); RED BLOOD COUNT 4.18 X10'6 (4.70-6.10); RED CELL DISTRIBUTION WIDTH 15.7 % (11.5-14.5); WHITE BLOOD COUNT 4.2 X10'3 (4.5-11.0)
[2024-11-09 20:40] LABS: ALANINE AMINOTRANSFERASE 51 U/L (12-78); ALBUMIN 2.5 G/DL (3.4-5.0); ALBUMIN/GLOBULIN RATIO 0.5 (1.1-1.5); ALKALINE PHOSPHATASE 202 IU/L (46-116); ANION GAP 6 (8-16); ASPARTATE AMINO TRANSFERASE 62 U/L (10-37); BILIRUBIN,TOTAL 0.3 MG/DL (0.1-1.0); BLOOD UREA NITROGEN 22 MG/DL (7-18); BUN/CREATININE RATIO 15.2 (10.0-20.0); CHLORIDE 104 MMOL/L (99-107); CREATININE 1.45 MG/DL (0.60-1.10); GLUCOSE 130 MG/DL (70-104); POTASSIUM 4.9 MMOL/L (3.5-5.1); SODIUM 139 MMOL/L (135-145); TOTAL CARBON DIOXIDE 29.2 MMOL/L (24-32); TOTAL PROTEIN 7.9 G/DL (6.4-8.2); eCRCL 57 ML/MIN; eGFR 49 ML/MIN
[2024-11-09 20:48] LABS: PRO BRAIN NATRIURETIC PEPTIDE 432 PG/ML (0-125)
== END 2024-11-09 22:37 | disposition left against medical advice (07) ==
LOC: ER 19:51
DX: R07.9 Chest pain, unspecified (principal); R06.02 Shortness of breath; Z53.21 Procedure and treatment not carried out due to patient leaving prior to being seen by health care provider
CPT/HCPCS: 36415; 71045; 80053; 83880; 84484; 85025; 93005

== ENCOUNTER 2024-11-21 14:57 | Emergency (ER) | payer MEDICARE ==
[~2024-11-21] VITALS: Ht 180.3 cm; Wt 103.5 kg
[2024-11-21 15:25] LABS: BASOPHILS % (AUTO) 0.9 % (0-1); EOSINOPHILS # (AUTO) 0.1 X10'3 (0-0.9); EOSINOPHILS % (AUTO) 2.6 % (0-6); HEMATOCRIT 36.4 % (42.0-52.0); HEMOGLOBIN 11.8 g/dl (14.0-17.9); LYMPHOCYTES % (AUTO) 23.3 % (21-51); MEAN CORPUSCULAR HEMOGLOBIN 26.8 PG (27.0-31.0); MEAN CORPUSCULAR HGB CONC 32.3 g/dL (33.0-36.5); MEAN PLATELET VOLUME 7.9 FL (7.4-10.4); MONOCYTES # (AUTO) 0.5 X10'3 (0-0.9); MONOCYTES % (AUTO) 11.2 % (2-12); NEUTROPHILS # (AUTO) 2.6 X10'3 (1.8-7.7); PLATELET COUNT 188 X10'3 (140-440); RED BLOOD COUNT 4.38 X10'6 (4.70-6.10); RED CELL DISTRIBUTION WIDTH 16.6 % (11.5-14.5); WHITE BLOOD COUNT 4.2 X10'3 (4.5-11.0)
[2024-11-21 16:00] LABS: ALANINE AMINOTRANSFERASE 43 U/L (12-78); ALBUMIN 2.8 G/DL (3.4-5.0); ALBUMIN/GLOBULIN RATIO 0.5 (1.1-1.5); ALKALINE PHOSPHATASE 167 IU/L (46-116); ANION GAP 8 (8-16); ASPARTATE AMINO TRANSFERASE 83 U/L (10-37); BILIRUBIN,TOTAL 0.4 MG/DL (0.1-1.0); BLOOD UREA NITROGEN 30 MG/DL (7-18); CALCIUM 9.2 MG/DL (8.5-10.1); CHLORIDE 102 MMOL/L (99-107); CREATININE 1.58 MG/DL (0.60-1.10); GLUCOSE 103 MG/DL (70-104); POTASSIUM 5.3 MMOL/L (3.5-5.1); SODIUM 139 MMOL/L (135-145); TOTAL CARBON DIOXIDE 29.2 MMOL/L (24-32); TOTAL PROTEIN 8.2 G/DL (6.4-8.2); eCRCL 52 ML/MIN; eGFR 45 ML/MIN
[2024-11-21 16:09] LABS: LIPASE 43 U/L (16-77); PRO BRAIN NATRIURETIC PEPTIDE 268 PG/ML (0-125)
[2024-11-21] MEDS: normal saline 1000ML IV soln IVB ONE (18:55)
[2024-11-21] MEDS ORDERED: FLO0.4C PO (19:33)
[2024-11-21 19:35] VITALS: BP 145/92; PULSE 79; RESP 16; TEMP 98; O2SAT 98
== END 2024-11-21 19:36 | disposition home or self-care (01) ==
LOC: ER 14:59
DX: R11.10 Vomiting, unspecified (principal); D64.9 Anemia, unspecified; E87.5 Hyperkalemia; R74.8 Abnormal levels of other serum enzymes; K76.0 Fatty (change of) liver, not elsewhere classified; R35.1 Nocturia; I50.9 Heart failure, unspecified; J44.9 Chronic obstructive pulmonary disease, unspecified; G89.29 Other chronic pain; M54.9 Dorsalgia, unspecified; F20.9 Schizophrenia, unspecified; F31.9 Bipolar disorder, unspecified; F12.90 Cannabis use, unspecified, uncomplicated; F15.90 Other stimulant use, unspecified, uncomplicated; Z56.0 Unemployment, unspecified; Z85.118 Personal history of other malignant neoplasm of bronchus and lung; Z59.00 Homelessness unspecified
CPT/HCPCS: 36415; 71045; 76700; 80053; 83690; 83880; 84484; 85025; 93005; 96360; 99285; J7030

== ENCOUNTER 2025-01-08 22:56 | Emergency (ER) | payer MEDICARE, MEDICAID ==
[~2025-01-08] VITALS: Ht 180.3 cm; Wt 101.2 kg
[2025-01-08 23:15] VITALS: BP 139/83; PULSE 86; TEMP 98.3
--- NOTE | 2025-01-08 23:25 | ELECTROCARDIOGRAPH REPORT ---
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
[2025-01-09 00:04] LABS: BASOPHILS % (AUTO) 0.9 % (0-1); EOSINOPHILS # (AUTO) 0.1 X10'3 (0-0.9); EOSINOPHILS % (AUTO) 3.2 % (0-6); HEMATOCRIT 34.2 % (42.0-52.0); HEMOGLOBIN 10.9 g/dl (14.0-17.9); LYMPHOCYTES # (AUTO) 0.9 X10'3 (1.1-4.8); LYMPHOCYTES % (AUTO) 20.2 % (21-51); MEAN CORPUSCULAR HEMOGLOBIN 25.6 PG (27.0-31.0); MEAN CORPUSCULAR VOLUME 80.1 FL (78-98); MEAN PLATELET VOLUME 8.3 FL (7.4-10.4); MONOCYTES # (AUTO) 0.5 X10'3 (0-0.9); MONOCYTES % (AUTO) 11.7 % (2-12); NEUTROPHILS # (AUTO) 2.8 X10'3 (1.8-7.7); PLATELET COUNT 244 X10'3 (140-440); RED BLOOD COUNT 4.27 X10'6 (4.70-6.10); WHITE BLOOD COUNT 4.5 X10'3 (4.5-11.0)
[2025-01-09 00:22] LABS: ALANINE AMINOTRANSFERASE 40 U/L (12-78); ALBUMIN 2.6 G/DL (3.4-5.0); ALBUMIN/GLOBULIN RATIO 0.5 (1.1-1.5); ALKALINE PHOSPHATASE 179 IU/L (46-116); ANION GAP 12 (8-16); ASPARTATE AMINO TRANSFERASE 99 U/L (10-37); BILIRUBIN,TOTAL 0.3 MG/DL (0.1-1.0); BLOOD UREA NITROGEN 34 MG/DL (7-18); BUN/CREATININE RATIO 15.3 (10.0-20.0); CALCIUM 8.7 MG/DL (8.5-10.1); CHLORIDE 104 MMOL/L (99-107); CREATININE 2.22 MG/DL (0.60-1.10); GLUCOSE 94 MG/DL (70-104); POTASSIUM 4.8 MMOL/L (3.5-5.1); PRO BRAIN NATRIURETIC PEPTIDE 525 PG/ML (0-125); SODIUM 142 MMOL/L (135-145); TOTAL CARBON DIOXIDE 26.4 MMOL/L (24-32); TOTAL PROTEIN 7.7 G/DL (6.4-8.2); eCRCL 37 ML/MIN; eGFR 30 ML/MIN
[2025-01-09 00:31] VITALS: RESP 18; O2SAT 96
--- NOTE | 2025-01-09 01:35 | Physician Documentation ---
History of Present Illness ~ General Chief Complaint: See Chief Complaint Stated Complaint: CP, SOB, DVT LEG Time Seen by MD: 01:31 Primary Medical Doctor: miguelina Source: patient, family Mode of Arrival: Ambulatory History of Present Illness Initial Comments Patient with history of lung cancer, tobacco use disorder presenting for shortness of breath increased from his baseline and right thigh and right calf pain and swelling. History obtained while patient is walking way in the parking lot. He is agreeable to very brief evaluation but does not want to stay for more than a few minutes. He reports his shortness of breath is due to his lung cancer and chronic. His family member at bedside states that she thinks he is worsened in his baseline he reports wheezing Medication Reconciliation Allergies: Coded Allergies: No Known Allergies (Unverified , 01/08/25) Scheduled Amlodipine Besylate (Amlodipine Besylate), 5 MG PO DAILY Budesonide/Formoterol Fumarate (Symbicort 160-4.5 Mcg Inhaler), 2 PUFFS INH Q12H Bupropion HCl (Bupropion HCl Sr), 1 TAB PO BID Gabapentin (Neurontin), 2 CAP PO TID Hydrocodone Bit/Acetaminophen (Hydrocodone-Apap 10-325 Tablet), 1 TABLET PO TID, (Reported) Ondansetron 8mg ODT (Ondansetron Odt), 1 TAB PO Q6H Scheduled PRN Albuterol Sulfate (Ventolin Hfa), 2 PUFFS INH Q4HPRN PRN for SOB or wheezing Discontinued Medications Albuterol Sulfate (Ventolin Hfa), 2 PUFFS INH Q4HPRN PRN for wheezing Discontinued Reason: patient no longer taking Albuterol Sulfate Nebs* (Proventil Nebs*), 2.5 MG IH Q4H PRN for SOB or wheezing, (Reported) Discontinued Reason: patient no longer taking Amox Tr/Potassium Clavulanate (Augmentin 875-125 Tablet), 1 TAB PO Q12H Discontinued Reason: patient no longer taking Azithromycin (Azithromycin), 1 TAB PO UD Discontinued Reason: patient no longer taking Cyclobenzaprine* (Cyclobenzaprine*), 1 TAB PO Q6H PRN for spasms, (Reported) Discontinued Reason: patient no longer taking Cyclobenzaprine* (Cyclobenzaprine*), 1 TAB PO HS Discontinued Reason: completed med therapy Nicotine 21 MG Patch* (Habitrol 21 MG Patch*), 1 PATCH TD DAILY Discontinued Reason: patient no longer taking Nicotine Polacrilex (Nicotine Lozenge), 2 MG BC Q2H PRN for NICOTINE CRAVING Discontinued Reason: patient no longer taking Pantoprazole Sodium (PROTONIX tablet), 1 TAB PO DAILY, (Reported) Discontinued Reason: patient no longer taking Prednisone* (Prednisone*), 2 TAB PO DAILY Discontinued Reason: patient no longer taking Past Medical History Past Medical History: Congestive Heart Failure, COPD, Cirrohsis, Hemorrhoids, Hepatitis C, Chronic Pain, Chronic Back Pain, *CANCER*, Lung Cancer, Bipolar, Schizophrenia Past Surgical History: noncontributory, tonsillectomy Patient History: FHx: mental illness FATHER, , Age: 59, Cause: Cancer MOTHER, , Age: 75, Cause: Sepsis brother, Other Past Family History: NONCONTRIBUTORY Alcohol Use: None Drug Use: marijuana, methamphetamine Lives with: Spouse Lives In: Homeless Occupation: unemployed Review of Systems Constitutional: Denies: fever Physical Exam Physical Exam Vital Signs: Temperature: 98.3, Source: Oral, Heart Rate: 86, Respiratory Rate: 18, BP: 139/83, Pulse Oximetry: 96, Weight: 101.200 Physical Exam Chronically ill-appearing Pulmonary diffuse expiratory wheezes Cardiac no murmur Lower extremity Right lower extremity swollen tender intact pulses soft compartments Progress Results/Orders Reviewed/noted all lab results: Yes Results/Orders Orders - ASHELY ROGERS MD Chest,Single View (01/08/25 23:23) Monitor (01/08/25 23:23) Saline Lock (01/08/25 23:23) Oxygen (01/08/25 23:23) Hs Troponin I W Calculations (01/09/25 01:23) Hs Troponin I W Calculations (01/09/25 02:23) Completed Orders - ASHELY ROGERS MD Chest,Single View (01/08/25 23:23) Cbc/Diff (01/08/25 23:23) PBNP (01/08/25 23:23) Electrocardiogram (01/08/25 23:23) CMP (01/08/25 23:23) Hs Troponin I W Calculations (01/08/25 23:23) Enoxaparin Syringe (Lovenox Syringe) (01/09/25 01:35) Prednisone Tablet (Prednisone Tablet) (01/09/25 01:40) Vital Signs 01/08/25 01/09/25 01/09/25 23:15 00:31 00:31 Temp 98.3 Pulse 86 Resp 16 18 B/P (MAP) 139/83 Pulse Ox 96 96 O2 Delivery Room Air* O2 Flow Rate 0 FiO2 21 Laboratory Tests Test 01/08/25 23:02 White Blood Count 4.5 Red Blood Count 4.27 L Hemoglobin 10.9 L Hematocrit 34.2 L Mean Corpuscular Volume 80.1 Mean Corpuscular Hemoglobin 25.6 L Mean Corpuscular Hemoglobin Concent 32.0 L Red Cell Distribution Width 18.0 H Platelet Count 244 Mean Platelet Volume 8.3 Neutrophils (%) (Auto) 64.0 Lymphocytes (%) (Auto) 20.2 L Monocytes (%) (Auto) 11.7 Eosinophils (%) (Auto) 3.2 Basophils (%) (Auto) 0.9 Neutrophils # (Auto) 2.8 Lymphocytes # (Auto) 0.9 L Monocytes # (Auto) 0.5 Eosinophils # (Auto) 0.1 Basophils # (Auto) 0.0 CBC Comment Sodium Level 142 Potassium Level 4.8 Chloride Level 104 Carbon Dioxide Level 26.4 Anion Gap 12 Blood Urea Nitrogen 34 H Creatinine 2.22 H Estimated GFR/1.73 m2 30 BUN/Creatinine Ratio 15.3 Glucose Level 94 Calcium Level 8.7 Total Bilirubin 0.3 Aspartate Amino Transf (AST/SGOT) 99 H Alanine Aminotransferase (ALT/SGPT) 40 Alkaline Phosphatase 179 H Troponin I High Sensitivity 7 Pro-B-Type Natriuretic Peptide 525 H Total Protein 7.7 Albumin 2.6 L Globulin 5.1 H Albumin/Globulin Ratio 0.5 L Chemistry Comments EKG/XRAY/CT/US/VASC/MRI Chest X-Ray : Additional Comments I independently interpreted chest x-ray shows right middle lobe atelectasis or infiltrate no consolidation normal cardiomediastinal silhouette Medical Decision Making Additional info obtained from: old records Findings Discharge summary reviewed 03/2024 Bipolar disorder tobacco use disorder ADH Differential Diagnosis COPD, lung cancer, pulmonary embolism, DVT Departure Disposition: LEFT AGAINST MEDICAL ADVICE Impression: Primary Impression: COPD (chronic obstructive pulmonary disease) Qualified Codes: J44.1 - Chronic obstructive pulmonary disease with (acute) exacerbation Additional Impression Text Patient presenting with leg swelling and acute on chronic shortness of breath with history of COPD and lung cancer. He is very ornery and does not want to stay in the ED. He is not want to wait for a vascular ultrasound. He is amenable to a dose of Lovenox. I have given him the 1 mg/kg dose due to his GFR being near the lower limit requiring dosage adjustment. The risk of starting him on a DOAC without a clear diagnosis is not a reasonable alternative. I have instructed him that he needs to return for an ultrasound for definitive treatment and management Additional Instructions: We are concerned that you have a blood clot in your leg and potentially in your lung. The treatment of this is diagnosis with an ultrasound which you do not want to pursue. I have given you a dose of blood thinner medication which will help protect any worsening of a potential blood clot. This however is only good for about 12 hours. Please return in the morning or any time for your ultrasound. Referrals: NO PRIMARY CARE PROVIDER (PCP) Prescriptions Prednisone* (Prednisone*) 20 Mg Tablet 3 TAB PO DAILY, #15 TAB Prov: ASHELY ROGERS MD 01/09/25 Signature Scribe Signature: george Attestation: ASHELY Celis MD January 09, 2025 01:35
[2025-01-09] MEDS ORDERED: PRED20TA PO (02:04)
[2025-01-09] MEDS: prednisone 10mg tablet PO ONE (02:04)
[2025-01-09] MEDS: predniSONE 20 mg tablet PO ONE (02:08)
[2025-01-09] MEDS: enoxaparin 100mg/ml syringe SUBCUT ONE (02:08)
--- NOTE | 2025-01-09 02:20 | RADIOLOGY REPORT ---
Clinical History CP Comparison PCXR on 11/09/2024, 1 images. Technique: A single AP/PA chest radiograph was provided for review. Without Contrast RANJIT FARFAN, [id number] FINDINGS:/IMPRESSION: Normal cardiac silhouette. Ill-defined densities at the right lung base, possible infiltrates. Nodular densities at the right lung base and left lung base, possible nodules. No effusion or pneumothorax. Probable scarring in the right midlung zone. This report was electronically signed by Júnior Lemus MD on 01/09/2025 2:17:50 AM.
== END 2025-01-09 02:15 | disposition left against medical advice (07) ==
LOC: ER 22:57
DX: J44.9 Chronic obstructive pulmonary disease, unspecified (principal); M79.661 Pain in right lower leg; F31.9 Bipolar disorder, unspecified; I50.9 Heart failure, unspecified; F20.9 Schizophrenia, unspecified; C34.90 Malignant neoplasm of unspecified part of unspecified bronchus or lung; Z85.118 Personal history of other malignant neoplasm of bronchus and lung; Z87.891 Personal history of nicotine dependence; Z90.89 Acquired absence of other organs; F12.90 Cannabis use, unspecified, uncomplicated; F15.90 Other stimulant use, unspecified, uncomplicated
CPT/HCPCS: 36415; 71045; 80053; 83880; 84484; 85025; 93005; 96372; 99285; J1650; J7512

== ENCOUNTER 2025-01-11 11:58 | Emergency (ER) | payer MEDICARE, MEDICAID ==
[~2025-01-11] VITALS: Ht 180.3 cm; Wt 100.9 kg
[~2025-01-11 11:58] MED LIST changes: -ALB0.5UD IH; -AMOX-117 PO; -AZIT-21 PO; -CYCL-1 PO; -NICO-687 TD; -NICO-907 BC; -PANT-47 PO
[2025-01-11 12:08] VITALS: TEMP 97.6
--- NOTE | 2025-01-11 12:18 | ELECTROCARDIOGRAPH REPORT ---
[facility] Test Date: 2025-01-11 Test Time: 12:16:17 Pat Name: RANJIT FARFAN Department: [facility] Patient ID: [id number] Room: Gender: M Appliquer: : 1965 Requested By: MARI IGLESIAS Order Number: [id number] Reading MD: Measurements Intervals [place] Rate: 84 P: 76 GA: 148 QRS: 82 QRSD: 107 T: 53 QT: 367 QTc: 434 Interpretive Statements Sinus rhythm Atrial premature complex Borderline right axis deviation Please click the below link to view image of tracing.
[2025-01-11 12:23] LABS: BASOPHILS % (AUTO) 0.9 % (0-1); EOSINOPHILS # (AUTO) 0.1 X10'3 (0-0.9); EOSINOPHILS % (AUTO) 2.1 % (0-6); HEMATOCRIT 33.7 % (42.0-52.0); HEMOGLOBIN 10.4 g/dl (14.0-17.9); LYMPHOCYTES # (AUTO) 0.7 X10'3 (1.1-4.8); LYMPHOCYTES % (AUTO) 14.9 % (21-51); MEAN CORPUSCULAR HEMOGLOBIN 24.8 PG (27.0-31.0); MEAN PLATELET VOLUME 8.1 FL (7.4-10.4); MONOCYTES # (AUTO) 0.5 X10'3 (0-0.9); MONOCYTES % (AUTO) 11.4 % (2-12); NEUTROPHILS # (AUTO) 3.3 X10'3 (1.8-7.7); NEUTROPHILS % (AUTO) 70.7 % (42-75); PLATELET COUNT 209 X10'3 (140-440); RED BLOOD COUNT 4.21 X10'6 (4.70-6.10); RED CELL DISTRIBUTION WIDTH 17.7 % (11.5-14.5); WHITE BLOOD COUNT 4.7 X10'3 (4.5-11.0)
[2025-01-11 12:50] LABS: ALANINE AMINOTRANSFERASE 47 U/L (12-78); ALBUMIN 2.5 G/DL (3.4-5.0); ALBUMIN/GLOBULIN RATIO 0.5 (1.1-1.5); ALKALINE PHOSPHATASE 163 IU/L (46-116); ANION GAP 7 (8-16); ASPARTATE AMINO TRANSFERASE 117 U/L (10-37); BILIRUBIN,TOTAL 0.6 MG/DL (0.1-1.0); BLOOD UREA NITROGEN 30 MG/DL (7-18); BUN/CREATININE RATIO 21.7 (10.0-20.0); CALCIUM 9.1 MG/DL (8.5-10.1); CHLORIDE 105 MMOL/L (99-107); CREATININE 1.38 MG/DL (0.60-1.10); GLUCOSE 92 MG/DL (70-104); POTASSIUM 4.6 MMOL/L (3.5-5.1); PRO BRAIN NATRIURETIC PEPTIDE 501 PG/ML (0-125); SODIUM 139 MMOL/L (135-145); TOTAL CARBON DIOXIDE 26.6 MMOL/L (24-32); TOTAL PROTEIN 7.4 G/DL (6.4-8.2); eCRCL 60 ML/MIN; eGFR 52 ML/MIN
--- NOTE | 2025-01-11 13:08 | RADIOLOGY REPORT ---
CHEST RADIOGRAPH Indication: CP Technique: Single frontal view of the chest was obtained COMPARISON: DI CHEST,SINGLE VIEW on DOS: 01/08/25, DI CHEST,SINGLE VIEW on DOS: 11/21/24, DI CHEST,SINGL E VIEW on DOS: 11/09/24, DI CHEST,SINGLE VIEW on DOS: 10/14/24, DI CHEST,SINGLE VIEW on DOS: 10/08/24 FINDINGS: Lines and Tubes: None Lungs: Unchanged right mid to upper lung scarring. Pleura: No effusion. No pneumothorax. Cardiomediastinal contours: Unremarkable Bones: Unremarkable IMPRESSION: Unchanged right mid to upper lung scarring.
--- NOTE | 2025-01-11 15:13 | Physician Documentation ---
History of Present Illness ~ Chief Complaint: Shortness of Breath Stated Complaint: POSS BLOOD CLOT Time Seen by MD: 14:27 Primary Medical Doctor: miguelina BENNETT 59-year-old male presents to the ED with a complaint of right leg pain. He states that his doctor sent him here because he has a history of DVT and has increased right leg pain and swelling.. Patient has a known history of noncompliance.. He also states that his doctor sent him here to get a ultrasound of his heart. Denies any current meth use Day of Onset: January 11, 2025 Medication Reconciliation Allergies: Coded Allergies: No Known Allergies (Unverified , 01/11/25) Scheduled Amlodipine Besylate (Amlodipine Besylate), 5 MG PO DAILY Budesonide/Formoterol Fumarate (Symbicort 160-4.5 Mcg Inhaler), 2 PUFFS INH Q12H Bupropion HCl (Bupropion HCl Sr), 1 TAB PO BID Gabapentin (Neurontin), 2 CAP PO TID Hydrocodone Bit/Acetaminophen (Hydrocodone-Apap 10-325 Tablet), 1 TABLET PO TID, (Reported) Ondansetron 8mg ODT (Ondansetron Odt), 1 TAB PO Q6H Prednisone* (Prednisone*), 3 TAB PO DAILY Scheduled PRN Albuterol Sulfate (Ventolin Hfa), 2 PUFFS INH Q4HPRN PRN for SOB or wheezing Discontinued Medications Albuterol Sulfate (Ventolin Hfa), 2 PUFFS INH Q4HPRN PRN for wheezing Discontinued Reason: patient no longer taking Albuterol Sulfate Nebs* (Proventil Nebs*), 2.5 MG IH Q4H PRN for SOB or wheezing, (Reported) Discontinued Reason: patient no longer taking Amox Tr/Potassium Clavulanate (Augmentin 875-125 Tablet), 1 TAB PO Q12H Discontinued Reason: patient no longer taking Azithromycin (Azithromycin), 1 TAB PO UD Discontinued Reason: patient no longer taking Cyclobenzaprine* (Cyclobenzaprine*), 1 TAB PO Q6H PRN for spasms, (Reported) Discontinued Reason: patient no longer taking Cyclobenzaprine* (Cyclobenzaprine*), 1 TAB PO HS Discontinued Reason: completed med therapy Nicotine 21 MG Patch* (Habitrol 21 MG Patch*), 1 PATCH TD DAILY Discontinued Reason: patient no longer taking Nicotine Polacrilex (Nicotine Lozenge), 2 MG BC Q2H PRN for NICOTINE CRAVING Discontinued Reason: patient no longer taking Pantoprazole Sodium (PROTONIX tablet), 1 TAB PO DAILY, (Reported) Discontinued Reason: patient no longer taking Prednisone* (Prednisone*), 2 TAB PO DAILY Discontinued Reason: patient no longer taking Past Medical History Past Medical History: Congestive Heart Failure, COPD, Cirrohsis, Hemorrhoids, Hepatitis C, Chronic Pain, Chronic Back Pain, *CANCER*, Lung Cancer, Bipolar, Schizophrenia Past Surgical History: noncontributory, tonsillectomy Patient History: FHx: mental illness FATHER, , Age: 59, Cause: Cancer MOTHER, , Age: 75, Cause: Sepsis brother, Other Past Family History: NONCONTRIBUTORY Alcohol Use: None Drug Use: marijuana, methamphetamine Lives with: Spouse Lives In: Homeless Occupation: unemployed Review of Systems All Other Systems at this time: Reviewed and Negative ROS As stated above in the HPI, otherwise all systems are reviewed and negative. Physical Exam Vital Signs: Temperature: 97.6, Source: Temporal, Heart Rate: 84, Respiratory Rate: 18, BP: 166/93, Pulse Oximetry: 97, Weight: 100.910 Physical Exam General: Alert, no apparent distress. Respiratory: Lungs clear, no respiratory distress. Cardiovascular: Regular rate and rhythm, no murmurs. Gastrointestinal: Soft, nontender, nondistended. Bowels sounds present. Extremities: Negative Homans sign, no obvious swelling no erythema Neurologic: Oriented x4. Psychiatric: Normal mood and affect. Skin: Normal color, warm and dry. No edema, no ecchymosis. Progress Results/Orders Results/Orders Orders - SHAWN IGLESIAS [employer] Chest,Single View (01/11/25 12:31) Monitor (01/11/25 12:10) Saline Lock (01/11/25 12:10) Oxygen (01/11/25 12:10) Hs Troponin I W Calculations (01/11/25 15:10) Vl Venous (01/11/25 ) Completed Orders - SHAWN IGLESIAS [employer] WORK[employer] Chest,Single View (01/11/25 12:31) Cbc/Diff (01/11/25 12:10) PBNP (01/11/25 12:10) Electrocardiogram (01/11/25 12:10) CMP (01/11/25 12:10) Hs Troponin I W Calculations (01/11/25 12:10) Hs Troponin I W Calculations (01/11/25 14:10) Vl Venous (01/11/25 ) Vital Signs 01/11/25 01/11/25 12:08 16:57 Temp 97.6 Pulse 84 83 Resp 18 20 B/P (MAP) 166/93 162/94 Pulse Ox 97 96 Laboratory Tests Test 01/11/25 12:16 01/11/25 15:16 White Blood Count 4.7 Red Blood Count 4.21 L Hemoglobin 10.4 L Hematocrit 33.7 L Mean Corpuscular Volume 80.0 Mean Corpuscular Hemoglobin 24.8 L Mean Corpuscular Hemoglobin Concent 31.0 L Red Cell Distribution Width 17.7 H Platelet Count 209 Mean Platelet Volume 8.1 Neutrophils (%) (Auto) 70.7 Lymphocytes (%) (Auto) 14.9 L Monocytes (%) (Auto) 11.4 Eosinophils (%) (Auto) 2.1 Basophils (%) (Auto) 0.9 Neutrophils # (Auto) 3.3 Lymphocytes # (Auto) 0.7 L Monocytes # (Auto) 0.5 Eosinophils # (Auto) 0.1 Basophils # (Auto) 0.0 CBC Comment Sodium Level 139 Potassium Level 4.6 Chloride Level 105 Carbon Dioxide Level 26.6 Anion Gap 7 L Blood Urea Nitrogen 30 H Creatinine 1.38 H Estimated GFR/1.73 m2 52 BUN/Creatinine Ratio 21.7 H Glucose Level 92 Calcium Level 9.1 Total Bilirubin 0.6 Aspartate Amino Transf (AST/SGOT) 117 H Alanine Aminotransferase (ALT/SGPT) 47 Alkaline Phosphatase 163 H Troponin I High Sensitivity 7 6 Troponin I High Sens Percent Delta 0 14 Troponin I Hi Sens Absolute Change 0 -1 Pro-B-Type Natriuretic Peptide 501 H Total Protein 7.4 Albumin 2.5 L Globulin 4.9 H Albumin/Globulin Ratio 0.5 L Chemistry Comments Medical Decision Making Findings Ultrasound indicates that there was no sign of DVT in the right lower extremity.. Although patient does have persistent shortness of breath this is likely secondary to ongoing ascites and liver failure along with COPD. Based on his laboratory values I am not overly concerned as in some cases he actually has improved values especially with a kidney function and his pro BNP. No signs of MS based on his troponin levels. At this this stage feels strongly that he meets criteria for outpatient therapy. He would advise him to go to his doctor to obtain a referral to IR to obtain therapeutic or nonemergent paracentesis Differential Dx:Considerations: Include: anxiety, asthma, bronchitis, cardiogenic shock, CHF, COPD, dysrhythmia, hypertension, accelerated, hypertension, essential, hypertension, malignant, hyperventilation, hyponatremia, myocardial infarction, panic attack, pneumonia, pneumonitis, pneumothorax, PSVT, pulmonary embolism, respiratory distress, respiratory failure, sinusitis, upper resp. infection, other Departure Disposition: HOME / SELF CARE / HOMELESS Impression: Primary Impression: Ascites Additional Impressions: COPD (chronic obstructive pulmonary disease) Leg pain Condition: Stable Discharge Instructions: Ascites Referrals: NO PRIMARY CARE PROVIDER (PCP) Education Educated: Patient Educated regarding: diagnosis Signature Scribe Signature: de Attestation: The note accurately reflects work and decisions made by me.Shawn Zapata NP 01/11/25 18:36 SHAWN IGLESIAS NP January 11, 2025 15:13
--- NOTE | 2025-01-11 16:46 | VASCULAR REPORT ---
VASC VL VENOUS VL VENOUS 01/11/2025 03:58 PM Clinical History: Right lower extremity swelling Comparison: VASC VL VENOUS on DOS: 10/08/24 Technique: Duplex Doppler evaluation of the deep venous system of the right lower extremity from the common femo ral vein to the popliteal vein including color Doppler and spectral/pulsed waveform analysis was perf ormed. Findings: The common femoral vein demonstrates appropriate compressibility and waveform variability . There is compressibility/patency of the great saphenous vein at the proximal thigh . The femoral vein demonstrates appropriate compressibility and waveform variability . The deep femoral vein demonstrates appropriate compressibility and waveform variability . The popliteal vein demonstrates appropriate compressibility and waveform variability . There is color flow in the tibioperoneal trunk and posterior tibial vein. The contralateral left common femoral vein is patent. Impression: 1. No deep venous thrombosis right lower extremity. If clinical concern/symptoms persist or worsen, short-interval follow-up study is suggested.
[2025-01-11 16:57] VITALS: BP 162/94; PULSE 83; RESP 20; O2SAT 96
== END 2025-01-11 16:58 | disposition home or self-care (01) ==
LOC: ER 11:59
DX: R18.8 Other ascites (principal); J44.9 Chronic obstructive pulmonary disease, unspecified; F20.9 Schizophrenia, unspecified; F31.9 Bipolar disorder, unspecified; I50.9 Heart failure, unspecified; Z85.118 Personal history of other malignant neoplasm of bronchus and lung; Z90.89 Acquired absence of other organs; F12.90 Cannabis use, unspecified, uncomplicated; F15.90 Other stimulant use, unspecified, uncomplicated
CPT/HCPCS: 36415; 71045; 80053; 83880; 84484; 85025; 93005; 93971; 99285

== ENCOUNTER 2025-01-22 07:06 | Day surgery (SDC) | payer MEDICARE, MEDICAID ==
[~2025-01-22] VITALS: Ht 180.3 cm; Wt 95.6 kg
[2025-01-22] MEDS ORDERED: albumin 25% 100mL bottle x 1 IV PRN (07:35)
[2025-01-22] MEDS ORDERED: normal saline 1000ml 1,000 ML IV PRN (07:35)
[2025-01-22 07:38] VITALS: BP 139/86; PULSE 90; RESP 18; TEMP 97.7; O2SAT 96
[2025-01-22] MEDS ORDERED: GABA300C PO (08:15)
[2025-01-22] MEDS ORDERED: TAMS-55 PO (08:15)
[2025-01-22] MEDS ORDERED: TEST75GE10 TOP (08:15)
[2025-01-22] MEDS ORDERED: FLUT1BLS4 INH (08:15)
[2025-01-22] MEDS ORDERED: METO10TA3 PO (08:15)
[2025-01-22] MEDS ORDERED: HYDR-3972 PO (08:15)
[2025-01-22] MEDS ORDERED: AMLO5TAB18 PO (08:15)
[2025-01-22] MEDS ORDERED: ALBU18HF2 INH (08:15)
[2025-01-22] MEDS ORDERED: BUPR200T2 PO (08:15)
[2025-01-22] MEDS ORDERED: LIDOcaine 1% 30ml preserv. free vial IJ STA (08:18)
--- NOTE | 2025-01-22 11:20 | RADIOLOGY REPORT ---
Ultrasound abdomen limited portable HISTORY: Evaluate for possible ascites and future paracentesis. Real-time ultrasound examination of the abdomen demonstrates no evidence of ascites throughout all 4 quadrants. IMPRESSION: No evidence of ascites on this limited portable ultrasound examination.
== END 2025-01-22 08:25 | disposition home or self-care (01) ==
LOC: SSTAY O 07:06
PROVIDERS: ATTEND Hospitalist
DX: R18.8 Other ascites (principal)
CPT/HCPCS: 76705; A6258; A6449; C1729

== ENCOUNTER 2025-01-24 11:16 | Emergency (ER) | payer MEDICARE, MEDICAID ==
[~2025-01-24] VITALS: Ht 180.3 cm; Wt 92.7 kg
[~2025-01-24 11:16] MED LIST changes: +AMLO5TAB18 PO; -BUDE10.2 INH; -BUPR-72 PO; +BUPR200T2 PO; +FLUT1BLS4 INH; +HYDR-3972 PO; -HYDR-3973 PO; +METO10TA3 PO; -NOR5T PO; -ONDA-245 PO; -PRED20TA PO; +TAMS-55 PO; +TEST75GE10 TOP
[2025-01-24 12:24] LABS: BASOPHILS % (AUTO) 0.7 % (0-1); EOSINOPHILS # (AUTO) 0.1 X10'3 (0-0.9); EOSINOPHILS % (AUTO) 1.5 % (0-6); HEMATOCRIT 35.4 % (42.0-52.0); HEMOGLOBIN 11.4 g/dl (14.0-17.9); LYMPHOCYTES # (AUTO) 1.2 X10'3 (1.1-4.8); LYMPHOCYTES % (AUTO) 17.7 % (21-51); MEAN CORPUSCULAR HEMOGLOBIN 25.1 PG (27.0-31.0); MEAN CORPUSCULAR HGB CONC 32.1 g/dL (33.0-36.5); MEAN CORPUSCULAR VOLUME 78.3 FL (78-98); MONOCYTES # (AUTO) 0.7 X10'3 (0-0.9); MONOCYTES % (AUTO) 10.1 % (2-12); NEUTROPHILS # (AUTO) 4.6 X10'3 (1.8-7.7); PLATELET COUNT 266 X10'3 (140-440); RED BLOOD COUNT 4.53 X10'6 (4.70-6.10); WHITE BLOOD COUNT 6.6 X10'3 (4.5-11.0)
[2025-01-24 12:37] LABS: ALANINE AMINOTRANSFERASE 65 U/L (12-78); ALBUMIN 2.6 G/DL (3.4-5.0); ALBUMIN/GLOBULIN RATIO 0.5 (1.1-1.5); ALKALINE PHOSPHATASE 213 IU/L (46-116); ANION GAP 12 (8-16); ASPARTATE AMINO TRANSFERASE 63 U/L (10-37); BILIRUBIN,TOTAL 0.5 MG/DL (0.1-1.0); BLOOD UREA NITROGEN 30 MG/DL (7-18); BUN/CREATININE RATIO 20.4 (10.0-20.0); CALCIUM 9.5 MG/DL (8.5-10.1); CHLORIDE 99 MMOL/L (99-107); CREATININE 1.47 MG/DL (0.60-1.10); GLUCOSE 103 MG/DL (70-104); LIPASE 28 U/L (16-77); POTASSIUM 4.8 MMOL/L (3.5-5.1); SODIUM 137 MMOL/L (135-145); TOTAL CARBON DIOXIDE 25.9 MMOL/L (24-32); TOTAL PROTEIN 8.2 G/DL (6.4-8.2); eCRCL 56 ML/MIN; eGFR 49 ML/MIN
[2025-01-24 13:28] VITALS: BP 149/89; PULSE 94; RESP 16; TEMP 98.7; O2SAT 98
== END 2025-01-24 15:01 | disposition left against medical advice (07) ==
LOC: ER 11:16
DX: R11.2 Nausea with vomiting, unspecified (principal); Z53.21 Procedure and treatment not carried out due to patient leaving prior to being seen by health care provider
CPT/HCPCS: 36415; 80053; 83690; 85025

== ENCOUNTER 2025-04-08 12:38 | Emergency (ER) | payer MEDICARE, MEDICAID ==
[~2025-04-08] VITALS: Ht 180.3 cm; Wt 103.2 kg
[~2025-04-08 12:38] MED LIST changes: +CEFD300C3 PO; +FERR324T4 PO; +FURO-150 PO; +LACT-373 PO; +LACT1CAP74 PO; +LOP12.5T PO; -METO10TA3 PO; +OXYC10TA47 PO; +PANT40TA54 PO; +PRED10TA23 PO; +SPIR25TA5 PO; -TAMS-55 PO
--- NOTE | 2025-04-08 13:08 | ELECTROCARDIOGRAPH REPORT ---
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
[2025-04-08 13:34] LABS: MEAN PLATELET VOLUME 8.2 FL (7.4-10.4); RED CELL DISTRIBUTION WIDTH 19.5 % (11.5-14.5)
--- NOTE | 2025-04-08 13:37 | RADIOLOGY REPORT ---
DI CHEST,TWO VIEWS CLINICAL HISTORY: SOB COMPARISON: DI CHEST,SINGLE VIEW on DOS: 03/09/25, DI CHEST,SINGLE VIEW on DOS: 01/11/25, DI CHEST,SINGL E VIEW on DOS: 01/08/25, DI CHEST,SINGLE VIEW on DOS: 11/21/24, DI CHEST,SINGLE VIEW on DOS: 11/09/24 TECHNIQUE: Frontal and lateral view of the chest was obtained FINDINGS: Lines and Tubes: None Lungs: Persistent linear opacity right upper lobe. CT is suggested. Pleura: No effusion. No pneumothorax. Cardiomediastinal contours: Unremarkable Bones: No acute osseous abnormality. IMPRESSION: Persistent linear opacity right upper lobe. CT is suggested.
[2025-04-08 13:46] LABS: CREATININE 1.40 MG/DL (0.60-1.10); TOTAL CARBON DIOXIDE 25.2 MMOL/L (24-32); eCRCL 59 ML/MIN; eGFR 52 ML/MIN
[2025-04-08 13:53] LABS: PRO BRAIN NATRIURETIC PEPTIDE 507 PG/ML (0-125)
[2025-04-08 14:04] LABS: APTT 25 SECONDS (22-32); INR 1.2 INR
[2025-04-08 14:06] VITALS: TEMP 98.6
[2025-04-08 14:20] LABS: EOSINOPHILS % (MANUAL) 1.0 % (0-6); LYMPHOCYTES % (MANUAL) 27.0 % (21-51); MONOCYTES % (MANUAL) 3.0 % (2-12); NEUTROPHILS % (MANUAL) 69.0 % (42-75); PLATELET ESTIMATE NORMAL
--- NOTE | 2025-04-08 14:20 | Physician Documentation ---
History of Present Illness ~ Chief Complaint: Extremity Swelling Stated Complaint: FEET SWELLING Time Seen by MD: 14:02 OK to notify your PCP?: Yes Primary Medical Doctor: SHELLI Source: patient Mode of Arrival: POV Exam Limitations: no limitations HPI Chief Complaint: Lower extremity swelling Caveat: None Independent Historians: None History of Present Illness: Patient is a 59-year-old man with cirrhosis secon maame to hepatitis-C. Patient presents with complaints of lower extremity swelling and edema. Patient states that he came in because his was gurgling what the lower extremity swelling could mean and she told him that it could be a heart attack. Patient's chronic shortness a breath is at baseline. Patient states that he is no more short of breath than usual. Patient denies any nausea vomiting or diarrhea. Patient denies any abdominal pain. Patient states that he ran out of his Lasix and spironolactone yesterday. Review of systems: All systems were reviewed and are negative except for what is indicated in the history of present illness. Past Medical History: Cirrhosis, hepatitis C, COPD Past Surgical History: Social History: Tobacco use, denies alcohol, marijuana use Medications: Reviewed as documented Nursing Notes Allergies: Reviewed as documented in Nursing Notes Tetanus witin 5 years: No Medication Reconciliation Allergies: Coded Allergies: No Known Allergies (Unverified , 04/08/25) Scheduled Amlodipine Besylate (Amlodipine Besylate), 1 TAB PO DAILY, (Reported) Bupropion Hcl (Wellbutrin Sr), 1 TAB PO Q12H, (Reported) Cefdinir (Cefdinir), 1 CAP PO Q12H Ferrous Sulfate (Ferrous Sulfate), 1 TAB PO DAILY Fluticasone/Umeclidin/Vilanter (Trelegy Ellipta 100-62.5-25), 1 PUFFS INH DAILY, (Reported) Furosemide* (Lasix*), 1 TAB PO DAILY, (Reported) Gabapentin (Neurontin), 300 MG PO TID, (Reported) Lactobacillus Rhamnosus GG (Culturelle), 1 CAP PO DAILY Lactulose (Lactulose), 20 GM PO Q12H Metoprolol Tartrate (Lopressor tablet), 12.5 MG PO BID Pantoprazole Sodium (Pantoprazole Sodium), 40 MG PO DAILY Prednisone (Prednisone), 0 PO DAILY Spironolactone (Spironolactone), 1 TAB PO DAILY, (Reported) Testosterone (Testosterone), 40.5 MG TOP QAM, (Reported) Scheduled PRN Albuterol Sulfate (Ventolin Hfa), 2 PUFFS INH Q4HPRN PRN for wheezing, (Reported) Hydrocodone Bit/Acetaminophen (Hydrocodon-Acetaminophn 10-325 tablet), 1 TAB PO QID PRN PRN for pain, (Reported) Oxycodone Hcl (Oxycodone Hcl), 1 TAB PO TID PRN for pain, (Reported) Past Medical History Past Medical History: Congestive Heart Failure, COPD, Cirrohsis, Hemorrhoids, Hepatitis C, Chronic Pain, Chronic Back Pain, *CANCER*, Lung Cancer, Bipolar, Schizophrenia Past Surgical History: noncontributory, tonsillectomy Patient History: FHx: mental illness FATHER, , Age: 59, Cause: Cancer MOTHER, , Age: 75, Cause: Sepsis brother, Other Past Family History: NONCONTRIBUTORY Alcohol Use: None Drug Use: marijuana, methamphetamine Lives with: Spouse Lives In: Homeless Occupation: unemployed Review of Systems All Other Systems at this time: Reviewed and Negative ROS Patient denies any other acute symptoms other than above. All other systems are negative Physical Exam Vital Signs: RN Vital Signs have been reviewed: Yes, Temperature: 98.6, Source: Oral, Heart Rate: 75, Respiratory Rate: 17, BP: 120/75, Pulse Oximetry: 97, Weight: 103.250 Oxygen Flow Rate: 0 Pulse Oximetry Reflects: adequate oxygenation Physical Exam General Appearance: No distress HEENT: Normal OP, moist oral mucosa, PERRL, EOMI Neck: supple, normal ROM, trachea midline Pulmonary: No respiratory distress, CTA, BS equal Cardiac: RRR, no murmur, rub or gallop, GI: nondistended, SOFT, DISTENDED, NONTENDER, DULL TO PERCUSSION, normal bowel sounds, no guarding, no rebound Extremities: normal ROM, no swelling, non-tender Skin: intact, dry, warm, no rashes Neuro: AAOx3, speech is clear, no focal motor weakness Psych: normal affect, good eye contact, no apparent hallucination, normal speech Progress Results/Orders Results/Orders Orders - ADELE DIEZ MD Ct Chest (04/08/25 15:10) Completed Orders - ADELE DIEZ MD Furosemide Inj (Lasix Inj) (04/08/25 14:10) Spironolactone Tablet (Aldactone Tablet) (04/08/25 14:06) Ct Chest (04/08/25 15:10) Iohexol 300mg/Ml 100ml Inj. (Omnipaque-3 (04/08/25 15:15) Vital Signs 04/08/25 04/08/25 04/08/25 04/08/25 12:51 14:06 14:08 14:32 Temp 97.4 98.6 Pulse 58 75 80 Resp 20 17 B/P (MAP) 125/69 120/75 (90) Pulse Ox 97 97 O2 Flow Rate 0 04/08/25 04/08/25 04/08/25 15:07 16:29 18:30 Pulse 77 82 81 Resp 22 17 24 B/P (MAP) 134/89 (104) 110/66 (81) 108/60 Pulse Ox 96 97 94 O2 Flow Rate 0 0 Laboratory Tests Test 04/08/25 13:18 04/08/25 15:04 White Blood Count 2.8 L Red Blood Count 3.97 L Hemoglobin 9.7 L Hematocrit 30.5 L Mean Corpuscular Volume 76.7 L Mean Corpuscular Hemoglobin 24.4 L Mean Corpuscular Hemoglobin Concent 31.8 L Red Cell Distribution Width 19.5 H Platelet Count 186 Mean Platelet Volume 8.2 Neutrophils (%) (Auto) Lymphocytes (%) (Auto) Monocytes (%) (Auto) Eosinophils (%) (Auto) Basophils (%) (Auto) Neutrophils # (Auto) Lymphocytes # (Auto) Monocytes # (Auto) Eosinophils # (Auto) Basophils # (Auto) CBC Comment Differential Total Cells Counted 100 Neutrophils % (Manual) 69.0 Lymphocytes % (Manual) 27.0 Monocytes % (Manual) 3.0 Eosinophils % (Manual) 1.0 Platelet Estimate Normal Red Blood Cell Morphology Perf Polychromasia Few Hypochromasia 1+ Basophilic Stippling Anisocytosis 2+ Microcytosis 1+ Tear Drop Cells 1+ Prothrombin Time 11.9 INR International Normalized Ratio 1.2 Activated Partial Thromboplast Time 25 Coagulation Comments Sodium Level 138 Potassium Level 3.9 Chloride Level 105 Carbon Dioxide Level 25.2 Anion Gap 8 Blood Urea Nitrogen 18 Creatinine 1.40 H Estimated GFR/1.73 m2 52 BUN/Creatinine Ratio 12.9 Glucose Level 126 H Calcium Level 8.6 Magnesium Level 1.7 Total Bilirubin 0.6 Aspartate Amino Transf (AST/SGOT) 81 H Alanine Aminotransferase (ALT/SGPT) 29 Alkaline Phosphatase 149 H Ammonia < 10 L Troponin I High Sensitivity 4 Pro-B-Type Natriuretic Peptide 507 H Total Protein 7.2 Albumin 2.4 L Globulin 4.8 H Albumin/Globulin Ratio 0.5 L Amylase Level 25 Lipase 29 Chemistry Comments Urine Specimen Description Non-specified Urine Color Yellow Urine Clarity Clear Urine pH 6.0 Urine Specific [place] 1.020 Urine Protein Negative Urine Glucose (UA) Negative Urine Ketones Negative Urine Occult Blood Negative Urine Nitrite Negative Urine Bilirubin Negative Urine Urobilinogen 0.2 Urine Leukocyte Esterase Negative Urine Culture Indicated Not ind Volume Urine Centrifuged 10 ml Urine Comment Medical Decision Making Findings Differential diagnosis includes but is not limited to: EKG independent interpretation: Performed at 1:07 p.m.. Normal sinus rhythm, heart rate 86, normal axis, low voltage in extremity leads, normal ST segments Chest x-ray, single view, indication: Peripheral edema, shortness for breath Independent interpretation: Linear opacity and possible calcification in the right upper lobe, possible right perihilar mass. Otherwise normal mediastinum and normal cardiac silhouette. No acute cardiopulmonary process. Chest x-ray is compared to March 09. CT chest, with IV contrast, indication: Appearance of lung mass on chest x-ray Impression: 1. Right perihilar focal consolidation or mass lesion concerning fo r neoplasm. There is right hilar lymphadenopathy. These findings were present on prior CT. In addition there are enlarging multiple small nodular densities throughout the right lung and in the left upper lobe which may be metastatic. Recommend PET-CT for further evaluation. 2. Enlarged cirrhotic liver heterogeneous in appearance raising concern for metastatic disease or primary liver malignancy. Ascites is present Laboratory data independent interpretation: CBC: Leukopenia of 2.8, moderate anemia hemoglobin 9.7 and hematocrit 30.5, normal platelets 186 CMP: Unremarkable, mildly elevated creatinine of 1.4, total bili normal at 0.6, AST mildly elevated 81, ALT is normal at 29, alk-phos is mildly elevated at 149, ammonia level is less than 10 Emergency department course/medical decision-making: Patient presents with ascites. Patient does not require paracentesis. Abdomen is soft. Patient isn't in any respiratory distress. Patient incidentally is found to have a lung mass on a chest x-ray confirmed by CT scan. Patient will need to follow up with his primary care doctor this week for further outpatient workup. Patient does not meet any admission criteria. Patient is given Lasix and spironolactone for the lower extremity edema. Test results and all of the above reviewed with the patient. Departure Time of Disposition: 16:12 Disposition: 01 HOME / SELF CARE / HOMELESS Impression: Primary Impression: Edema of lower extremity Additional Impressions: Ascites Qualified Codes: R18.8 - Other ascites Lung mass Condition: Stable Discharge Instructions: Ascites, Lung Mass, Peripheral Edema Additional Instructions: MUST FOLLOW UP WITH YOUR PRIMARY CARE DOCTOR. YOUR CT SCAN SHOWS A MASS IN THE RIGHT LUNG AND OTHER FINDINGS CONCERNING FOR LUNG CANCER OR METASTATIC CANCER. CALL YOUR DOCTOR TOMORROW TO ARRANGE OUTPATIENT FOLLOW UP AND FURTHER OUTPATIENT WORKUP. Education Educated: Patient Educated regarding: diagnosis, treatment, need for follow up Signature Scribe Signature: NO SCRIBE Attestation: NO SCRIBE ADELE DIEZ MD Apr 08, 2025 14:19
[2025-04-08] MEDS: furosemide 10 MG/1 ML 10ml inj IV ONE (14:34)
[2025-04-08] MEDS ORDERED: iohexol 300mg/ml 100ml inj. ONE (15:15)
[2025-04-08 15:19] LABS: LEUKOCYTE ESTERASE ,URINE NEGATIVE (Neg); NITRITES, URINE NEGATIVE (Neg); OCCULT BLOOD,URINE NEGATIVE (Neg)
[2025-04-08 15:21] LABS: UA COLLECTION TYPE NON-SPECIFIED
--- NOTE | 2025-04-08 16:05 | RADIOLOGY REPORT ---
Procedure: CT CT CHEST W/ IV CONTRAST Reason for study/Clinical History: possible lung cancer, mass Comparison Study: DI CHEST,TWO VIEWS on DOS: 04/08/25, DI CHEST,SINGLE VIEW on DOS: 03/09/25, DI CHEST,SI NGLE VIEW on DOS: 01/11/25 Exam Date: 04/08/2025 03:18 PM TECHNIQUE: Multidetector CT of the chest was performed from the lung apices to the upper abdomen with out the use of intravenous contract. Axial, coronal and sagittal multiplanar reformats were performed . Radiation Dose Information: CT Dose: CTDI volume is 17 mGy. Dose-length product is 51 mGy*cm The dose indicators for CT are the volume Computed Tomography (CT) Dose Index (CTDIvol) and the Dose Length Product (DLP), and are measured in units of mGy and mGy-cm, respectively. These indicators are not patient dose, but values generated from the CT scanner acquisition factors. The report includes radiation exposure data for exposures received during this examination. FINDINGS: Lower neck: Normal thyroid. Lungs: Poorly defined focal area of consolidation in the right perihilar region. More distally in the posterior right upper lobe there is a rounded soft tissue density abutting the pleural surface. Air bronchograms are seen through these regions. In addition there are multiple small nodular densities seen in the right lower lobe under a cm in size. Multiple nodular density seen in the left upper lobe under 1 cm in size. Heart/Vascular Structures: Normal heart size. No pericardial effusion. Lymph Nodes: There is right hilar lymphadenopathy. Small mediastinal nodes. Pleura: No pleural effusion or significant pneumothorax. Musculoskeletal: No acute osseous abnormality. Soft tissues: Normal. Upper abdomen: Limited views of the upper abdomen show cirrhotic appearing enlarged liver. There is ascites present. IMPRESSION: 1. Right perihilar focal consolidation or mass lesion concerning for neoplasm. There is right hilar l ymphadenopathy. These findings were present on prior CT. In addition there are enlarging multiple sma ll nodular densities throughout the right lung and in the left upper lobe which may be metastatic. Re commend PET-CT for further evaluation. 2. Enlarged cirrhotic liver heterogeneous in appearance raising concern for metastatic disease or [place] liver malignancy. Ascites is present Radiation optimization: All CT scans at this facility use at least one of these dose optimization kaylie hniques: automated exposure control mA and/or kV adjustment per patient size (includes targeted exam s where dose is matched to clinical indication) or iterative reconstruction.
[2025-04-08 18:30] VITALS: BP 108/60; PULSE 81; RESP 24; O2SAT 94
[2025-04-17] MEDS ORDERED: PANT-47 PO (21:31)
[2025-04-17] MEDS ORDERED: METO25TA6 PO (21:31)
== END 2025-04-08 18:00 | disposition home or self-care (01) ==
LOC: ER 12:39
DX: R60.0 Localized edema (principal); R91.8 Other nonspecific abnormal finding of lung field; J44.9 Chronic obstructive pulmonary disease, unspecified; F12.90 Cannabis use, unspecified, uncomplicated; F15.90 Other stimulant use, unspecified, uncomplicated; I50.9 Heart failure, unspecified; F31.9 Bipolar disorder, unspecified; F20.9 Schizophrenia, unspecified; Z56.0 Unemployment, unspecified; Z59.00 Homelessness unspecified; Z87.19 Personal history of other diseases of the digestive system; Z85.118 Personal history of other malignant neoplasm of bronchus and lung; Z79.899 Other long term (current) drug therapy
CPT/HCPCS: 36415; 71046; 71260; 80053; 81003; 82140; 82150; 83690; 83735; 83880; 84484; 85007; 85025; 85610; 85730; 93005; 96374; 99285; J1938; Q9967

== ENCOUNTER 2025-05-07 23:49 | Emergency (ER) | payer MEDICARE, MEDICAID ==
[~2025-05-07] VITALS: Ht 180.3 cm; Wt 121.9 kg
[~2025-05-07 23:49] MED LIST changes: -AMLO5TAB18 PO; -CEFD300C3 PO; -FERR324T4 PO; -HYDR-3972 PO; +LACT1CAP26 PO; -LACT1CAP74 PO; -LOP12.5T PO; +PANT-47 PO; -PANT40TA54 PO; -SPIR25TA5 PO; -TEST75GE10 TOP
[2025-05-07 23:52] VITALS: TEMP 96.8
--- NOTE | 2025-05-08 | Physician Documentation ---
History of Present Illness ~ Chief Complaint: Shortness of Breath Stated Complaint: SHORTNESS OF BREATH Time Seen by MD: 23:55 Primary Medical Doctor: SHELLI BENNETT This is a 59-year-old gentleman with a known history of hep C, liver cirrhosis, ascites, COPD, presents for evaluation of sudden shortness of breath that began 1 hour prior to arrival accompanied by wheezing. Similar to prior COPD exacerbation. It is exertional, not positional, did not attempt to treat it. It is accompanied by some substernal chest tightness. Denies any fever or chills. Denies any other symptoms. Medication Reconciliation Allergies: Coded Allergies: No Known Allergies (Unverified , 05/07/25) Scheduled Bupropion Hcl (Wellbutrin Sr), 1 TAB PO Q12H, (Reported) Fluticasone/Umeclidin/Vilanter (Trelegy Ellipta 100-62.5-25), 1 PUFFS INH DAILY, (Reported) Furosemide* (Lasix*), 1 TAB PO DAILY, (Reported) Gabapentin (Neurontin), 600 MG PO TID, (Reported) Lactobacillus Rhamnosus (Culturelle), 1 EACH PO BID Lactulose (Lactulose), 20 GM PO Q12H Pantoprazole Sodium (PROTONIX tablet), 1 TAB PO DAILY, (Reported) Prednisone (Prednisone), 0 PO DAILY Scheduled PRN Albuterol Sulfate (Ventolin Hfa), 2 PUFFS INH Q4HPRN PRN for wheezing, (Reported) Oxycodone Hcl (Oxycodone Hcl), 1 TAB PO TID PRN for pain, (Reported) Past Medical History Past Medical History: Congestive Heart Failure, COPD, Cirrohsis, Hemorrhoids, Hepatitis C, Chronic Pain, Chronic Back Pain, *CANCER*, Lung Cancer, Bipolar, Schizophrenia Past Surgical History: noncontributory, tonsillectomy Patient History: FHx: mental illness FATHER, , Age: 59, Cause: Cancer MOTHER, , Age: 75, Cause: Sepsis brother, Other Past Family History: NONCONTRIBUTORY Alcohol Use: None Drug Use: marijuana, methamphetamine, heroin Lives with: Spouse Lives In: Home, Homeless Occupation: unemployed Review of Systems ROS 10 point review of systems was performed and unless noted above in HPI is negative for acute process/complaint. Physical Exam Vital Signs: Temperature: 96.8, Source: Oral, Heart Rate: 81, Respiratory Rate: 16, BP: 133/87, Pulse Oximetry: 94, Weight: 121.900 Physical Exam GENERAL: Awake, alert, oriented, GCS 15, no apparent distress, non-toxic appearing, answers questions, follows commands appropriately. Gentleman appearing markedly older than stated age examined immediately upon arrival in bed 6. Prominent swastica tattoo on his abdomen noted. HEENT: Atraumatic, normocephalic, pupils equal, extraocular muscles intact, sclerae anicteric, mucus membranes moist, oropharynx is clear, no stridor. NECK: supple, full active range of motion, trachea midline, no thyromegaly, no lymphadenopathy, no JVD. CARDIOVASCULAR: regular rate/rhythm, no murmurs/gallops/rubs, Pulses are 2+ in all extremities and symmetric. Capillary refill less than 2 seconds. PULMONARY: Tachypneic on supplemental oxygen, decreased air movement , mild re spiratory distress, speaking in short sentences, notable bilateral wheezing, no ronchi, no rales, some accessory muscle use. GASTROINTESTINAL: Soft, non-tender, distended but not tympanic, cup with the med do say noted, normal active bowel sounds, no organomegaly, no pulsatile masses, no CVA tenderness. NEUROLOGIC: Lucid with normal mental status. Normal facial symmetry. Moves all extremities symmetrically and with purpose. No truncal ataxia. Speech is fluid without evidence of dysarthria or aphasia, no focal deficits appreciated. MUSCULOSKELETAL: There is full range of motion of all extremities. There is no joint pain or joint swelling or joint erythema. There is no muscle pain or tenderness or swelling. EXTREMITIES: warm, well-perfused, no cyanosis, no clubbing, no edema, no acute deformities. Skin: warm, dry, no rashes or lesions, no jaundice, no petechiae orpurpura. No ecchymosis. PSYCHIATRIC: Normal affect, normal insight, normal concentration. Focused exam: [] Progress Results/Orders Results/Orders Orders - ASHELY GUSMAN DO Electrocardiogram (05/07/25 23:55) Monitor (05/07/25 23:55) Oxygen (05/07/25 23:55) Saline Lock (05/07/25 23:55) * Rt Notification Q1H (05/07/25 23:55) Chest,Single View (05/08/25 00:01) Cont Nebulizer Treatment (05/08/25 ) * Rt Notification Q1H (05/08/25 02:36) Completed Orders - ASHELY GUSMAN DO Cbc/Diff (05/07/25 23:55) Pt Inr (05/07/25 23:55) PTT (05/07/25 23:55) PBNP (05/07/25 23:55) MG (05/07/25 23:55) CMP (05/07/25 23:55) Hs Troponin I W Calculations (05/07/25 23:55) Hs Troponin I W Calculations (05/08/25 01:55) Methylprednisolone Sod Succ (Solumedrol (05/07/25 23:55) Albuterol 2.5mg/3ml Nebule (Proventil 2. (05/07/25 23:55) Magnesium Sulf-Water 2g/50ml (Magnesium (05/07/25 23:55) Chest,Single View (05/08/25 00:01) Man Diff (05/08/25 00:18) Normal Saline 1000ml (0.9% Sodium Chlori (05/08/25 01:20) Albuterol 2.5mg/3ml Nebule (Proventil 2. (05/08/25 02:40) MG (05/08/25 03:11) Medications Received in ER Medications (Trade) Dose Ordered Sig/Mike Route PRN Reason Start Time Stop Time Status Last Admin Dose Admin (SoluMEDROL 125mg inj) 125 mg ONCE ONCE IV 05/07/25 23:55 05/07/25 23:57 DC 05/08/25 00:07 125 MG (Proventil 2.5 MG/3ML nebule) 10 mg ONCE ONCE NEB 05/07/25 23:55 05/07/25 23:57 DC 05/08/25 00:35 10 MG Magnesium Sulfate 50 ml @ 100 mls/hr ONCE ONCE IV 05/07/25 23:55 05/08/25 00:24 DC 05/08/25 00:06 100 MLS/HR Sodium Chloride 1,000 ml @ 1,000 mls/hr ONCE ONCE IV 05/08/25 01:20 05/08/25 02:19 DC 05/08/25 01:20 1,000 MLS/HR (Proventil 2.5 MG/3ML nebule) 10 mg ONCE ONCE NEB 05/08/25 02:40 05/08/25 02:41 DC 05/08/25 03:30 10 MG Vital Signs 05/07/25 05/07/25 05/08/25 05/08/25 23:52 23:58 00:36 00:36 Temp 96.8 Pulse 81 83 Resp 16 22 22 B/P (MAP) 133/87 Pulse Ox 94 96 O2 Flow Rate 8.0 05/08/25 05/08/25 05/08/25 05/08/25 01:57 03:29 03:31 03:31 Pulse 89 86 87 Resp 20 18 20 B/P (MAP) 136/74 (94) Pulse Ox 88 95 94 O2 Flow Rate 2.0 8.0 Laboratory Tests Test 05/08/25 00:18 05/08/25 02:23 05/08/25 03:17 White Blood Count 3.5 L Red Blood Count 4.05 L Hemoglobin 9.8 L Hematocrit 30.9 L Mean Corpuscular Volume 76.3 L Mean Corpuscular Hemoglobin 24.2 L Mean Corpuscular Hemoglobin Concent 31.8 L Red Cell Distribution Width 21.1 H Platelet Count 181 Mean Platelet Volume 7.9 Neutrophils (%) (Auto) Lymphocytes (%) (Auto) Monocytes (%) (Auto) Eosinophils (%) (Auto) Basophils (%) (Auto) Neutrophils # (Auto) Lymphocytes # (Auto) Monocytes # (Auto) Eosinophils # (Auto) Basophils # (Auto) CBC Comment Differential Total Cells Counted 100 Neutrophils % (Manual) 71.0 Lymphocytes % (Manual) 20.0 L Monocytes % (Manual) 7.0 Eosinophils % (Manual) 2.0 Platelet Estimate Normal Red Blood Cell Morphology Perf Hypochromasia 1+ Basophilic Stippling Anisocytosis 3+ Microcytosis 1+ Target Cells 1+ [place] Cells 1+ Prothrombin Time 12.8 H INR International Normalized Ratio 1.3 Activated Partial Thromboplast Time 30 Coagulation Comments Sodium Level 132 L Potassium Level 3.9 Chloride Level 99 Carbon Dioxide Level 24.3 Anion Gap 9 Blood Urea Nitrogen 18 Creatinine 1.42 H Estimated GFR/1.73 m2 51 BUN/Creatinine Ratio 12.7 Glucose Level 117 H Calcium Level 9.0 Magnesium Level 5.7 *H 2.0 Total Bilirubin 0.8 Aspartate Amino Transf (AST/SGOT) 109 H Alanine Aminotransferase (ALT/SGPT) 32 Alkaline Phosphatase 161 H Troponin I High Sensitivity 7 6 Pro-B-Type Natriuretic Peptide 259 H Total Protein 7.3 Albumin 2.4 L Globulin 4.9 H Albumin/Globulin Ratio 0.5 L Chemistry Comments Troponin I High Sens Percent Delta 14 Troponin I Hi Sens Absolute Change -1 EKG/XRAY/CT/US/VASC/MRI EKG : Additional Comment EKG was obtained and interpreted by myself showing sinus rhythm of 83, normal SD interval, borderline QRS of 109, no QT prolongation, normal axis, no STEMI. Medical Decision Making Findings Facility Status: ED Holds, RME process The plan was discussed with the patient, who demonstrates clear understanding of the plan and is in agreement with the plan unless otherwise noted in the chart. All questions have been answered, all concerns were addressed unless otherwise documented. I was available throughout their ED stay for frequent reassessment and questions. Differential Diagnoses (considered and possible or likely): [Most likely represents COPD exacerbation, less likely CHF, ACS, pneumonia, occult bacteremia, less likely PE] ??Differential Diagnoses (considered and unlikely, not requiring evaluation currently): [See above, no evidence of trauma therefore unlikely pneumothorax] MDM Data Please see [facility] for the following: Independent Historians and external Records Review. Historian: [Patient] Independent Historians: ?[EMS, record review] Medication Management: [Reviewed medication list] Social History and determinants: [Reviewed] Please see the body of the note for the following: Any independent interpretations of ECG, imaging studies. All vitals signs/haemodynamics, ordered tests were independently reviewed and interpreted by myself. Nursing triage complaint and vitals reviewed, additional nursing notes were reviewed as available and I agree unless otherwise noted or documented in contradiction in the chart Vital Signs: Independently reviewed Labs: Independently interpreted Imaging: Independently interpreted Old Medical Records: Independently reviewed, see HPI for relevant summary and information Pulse Oximetry: [94% on 4 L] interpreted as [hypoxia] by me [Weed Cutter: [Regular Rate, Regular rhythm, no ectopy, NSR] reviewed and interpreted by me] Additionally notably showing: [Hemodynamics reviewed. He is not febrile, not tachycardic, no evidence of respiratory distress. He did have a brief episode of hypoxia requiring supplemental oxygen. CBC shows borderline leukopenia, anemia, normal platelets. Seventy with a % neutrophils and 20% lymphocytes. Coagulation panel is unremarkable. Chemistry shows marked hypomagnesemia is 5.7. JONNY versus CKD with a creatinine of 1.42. BNP is slightly elevated. Troponin is negative. Chest x-ray was obtained showing no acute disease. There is a right perihilar opacity. Per Radiology stable. Repeat magnesium is within normal limit.] Tests considered but not ordered include: [] Social Determinants of Health Impact: Patient [place] [facility] [place] to healthcare due to below par ratio of patient to medical providers. [] Comorbid Conditions Impacting Present Evaluation and Care/Treatment: [COPD, CHF] Management Discussions with other Healthcare Providers: [None] Treatment and Disposition Medication Management (Given or considered): [Breathing treatment, steroids]. See EMR for details Consideration for Hospitalization/Escalation/Deescalation of Care: Admission for observation has been considered, [however the patient is able to tolerate p.o., their symptoms are controlled, they are able to rely on oral medications, and their chief complaint/diagnosis can be managed on outpatient basis.] ?ED Course:?[Date: May 08, 2025 Time: 03:45 the patient feels markedly better after breathing treatment. Able to ambulate with a steady gait and without hypoxia. Initial presenting hypoxia has a resolved. ] ?Shared decision making:?[Patient is hemodynamically stable for discharge home with follow with their primary care provider. [ ] Specific and cautious return precautions provided and discussed with full understanding. Any incidental findings were also discussed and follow up recommendations given. [] All questions answered. Patient/family were able to verbalize back return precautions. Patient/family agree to plan. Copies of imaging and laboratory studies were provided.] Code status:?FULL Please see the full Electronic Medical Record for full details of nursing documentation, medications list, other records of complete past medical history and conditions, vital signs, laboratory studies, and any radiologic study interpretations by radiologists. Portions of this note were completed using [employer] dictation software and as a result there may exist minor errors in spelling. I have reviewed elements of past family and social history and agree as included in note. Departure Disposition: 01 HOME / SELF CARE / HOMELESS Impression: Primary Impression: Acute exacerbation of chronic obstructive airways disease Condition: Improved Discharge Instructions: Chronic Obstructive Pulmonary Disease Exacerbation Referrals: NO PRIMARY CARE PROVIDER (PCP) Prescriptions Prednisone (Prednisone) 10 Mg Tablet 0 PO DAILY, #42 TAB Take 4 tabs daily x4 days, then 3 daily x4 days 2 daily x4 days 1 daily x4 days 1/2 daily x4 days then STOP Prov: ASHELY GUSMAN DO 05/08/25 Albuterol Sulfate (Ventolin Hfa) 90 Mcg Hfa.aer.ad 2 PUFFS INH Q4HPRN PRN for wheezing for 30 Days, #18 GM 0 Refills Prov: ASHELY GUSMAN DO 05/08/25 Education Educated: Patient Educated regarding: diagnosis, treatment, prognosis, need for follow up Signature Scribe Signature: No scribe Attestation: Date: May 08, 2025 Time: 00:00 This note accurately reflects clinical decisions, work performed by myself, DO NASEEM Lambert NICHOLAS M DO May 08, 2025 00:00
[2025-05-08] MEDS: magnesium sulf-water 2g/50mL 50 ML IV ONE (00:06)
--- NOTE | 2025-05-08 00:34 | RADIOLOGY REPORT ---
CHEST RADIOGRAPH Indication: Shortness a breath Technique: Single frontal view of the chest was obtained COMPARISON: DI CHEST,SINGLE VIEW on DOS: 04/26/25, DI CHEST,SINGLE VIEW on DOS: 04/17/25, DI CHEST,TWO VIEWS on DOS: 04/08/25, DI CHEST,SINGLE VIEW on DOS: 03/09/25, DI CHEST,SINGLE VIEW on DOS: 01/11/25 FINDINGS: Lines and Tubes: None Lungs: Stable chronic appearing right perihilar opacity may represent scarring and or atelectasis. Th e lungs are otherwise clear without evidence of focal consolidation. Pleura: No effusion. No pneumothorax. Cardiomediastinal contours: Unremarkable Bones: Unremarkable IMPRESSION: 1. Stable chronic appearing right perihilar opacity may represent scarring and/or atelectasis. 2. The lungs are otherwise clear without evidence of focal consolidation.
[2025-05-08] MEDS: albuterol 2.5 MG/3 ML nebule NEB ONE ×2 (00:35→03:30)
[2025-05-08 00:36] VITALS: PULSE 83; RESP 22; O2SAT 96
[2025-05-08 00:43] LABS: RED CELL DISTRIBUTION WIDTH 21.1 % (11.5-14.5)
[2025-05-08 00:44] LABS: MEAN PLATELET VOLUME 7.9 FL (7.4-10.4)
[2025-05-08 00:48] LABS: APTT 30 SECONDS (22-32); INR 1.3 INR
[2025-05-08 00:50] LABS: CREATININE 1.42 MG/DL (0.60-1.10); TOTAL CARBON DIOXIDE 24.3 MMOL/L (24-32); eCRCL 58 ML/MIN; eGFR 51 ML/MIN
[2025-05-08 00:57] LABS: PRO BRAIN NATRIURETIC PEPTIDE 259 PG/ML (0-125)
[2025-05-08 01:10] LABS: EOSINOPHILS % (MANUAL) 2.0 % (0-6); LYMPHOCYTES % (MANUAL) 20.0 % (21-51); MONOCYTES % (MANUAL) 7.0 % (2-12); NEUTROPHILS % (MANUAL) 71.0 % (42-75); PLATELET ESTIMATE NORMAL
[2025-05-08] MEDS: normal saline 1000ml 1,000 ML IV ONE (01:20)
[2025-05-08 01:57] VITALS: PULSE 89; RESP 20; O2SAT 88
[2025-05-08 03:29] VITALS: BP 136/74
[2025-05-08 03:31] VITALS: PULSE 87; RESP 20; O2SAT 94
[2025-05-08] MEDS ORDERED: ALBU18HF2 INH (03:47)
[2025-05-08] MEDS ORDERED: PRED10TA23 PO (03:47)
--- NOTE | 2025-05-08 07:08 | ELECTROCARDIOGRAPH REPORT ---
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
== END 2025-05-08 04:05 | disposition home or self-care (01) ==
LOC: ER 23:50
DX: J44.1 Chronic obstructive pulmonary disease with (acute) exacerbation (principal); F20.9 Schizophrenia, unspecified; F31.9 Bipolar disorder, unspecified; I50.9 Heart failure, unspecified; F12.90 Cannabis use, unspecified, uncomplicated; F15.90 Other stimulant use, unspecified, uncomplicated; F11.90 Opioid use, unspecified, uncomplicated; Z90.89 Acquired absence of other organs; R07.89 Other chest pain
CPT/HCPCS: 36415; 71045; 80053; 83735; 83880; 84484; 85007; 85025; 85610; 85730; 93005; 94640; 96361; 96365; 96375; 99285; J2919; J7030; 94760

== ENCOUNTER 2025-05-20 13:56 | Inpatient (IN) | payer MEDICARE, MEDICAID ==
[~2025-05-20] VITALS: Ht 175.3 cm; Wt 91.0 kg
--- NOTE | 2025-05-20 14:50 | Physician Documentation ---
History of Present Illness General Chief Complaint: Mechanical Fall Stated Complaint: WEAKNESS Time Seen by MD: 14:16 OK to notify your PCP?: No Primary Medical Doctor: SHELLI Source: patient, RN notes reviewed Mode of Arrival: EMS Exam Limitations: other (Confused) History of Present Illness Initial Comments 59-year-old male, with history of lung cancer and liver cirrhosis/hepatitis-C, brought to the ED via EMS from home after family called because they can not care for him. The patient was on hospice, however hospitalist nurse arrived shortly after EMS and rescinded his hospice care. Patient was on chronic pain medications at home. Unable to obtain complete history of present illness due to patient's confusion. Medication Reconciliation Allergies: Coded Allergies: No Known Allergies (Unverified , 05/07/25) Scheduled Bupropion Hcl (Wellbutrin Sr), 1 TAB PO Q12H, (Reported) Fluticasone/Umeclidin/Vilanter (Trelegy Ellipta 100-62.5-25), 1 PUFFS INH DAILY, (Reported) Furosemide* (Lasix*), 1 TAB PO DAILY, (Reported) Gabapentin (Neurontin), 600 MG PO TID, (Reported) Lactobacillus Rhamnosus (Culturelle), 1 EACH PO BID Lactulose (Lactulose), 20 GM PO Q12H Pantoprazole Sodium (PROTONIX tablet), 1 TAB PO DAILY, (Reported) Prednisone (Prednisone), 0 PO DAILY Scheduled PRN Albuterol Sulfate (Ventolin Hfa), 2 PUFFS INH Q4HPRN PRN for wheezing Oxycodone Hcl (Oxycodone Hcl), 1 TAB PO TID PRN for pain, (Reported) Past Medical History Past Medical History: Congestive Heart Failure, COPD, Cirrohsis, Hemorrhoids, Hepatitis C, Chronic Pain, Chronic Back Pain, *CANCER*, Lung Cancer, Bipolar, Schizophrenia Past Surgical History: noncontributory, tonsillectomy Other Past Family History: NONCONTRIBUTORY Smoking: Cigarettes, Greater than 1 pack/day Alcohol Use: None Drug Use: marijuana, methamphetamine, heroin Lives with: Spouse Lives In: Home, Homeless Occupation: unemployed Unable to obtain complete PMH: altered mental status Review of Systems Unable to obtain complete ROS: altered mental status Physical Exam Physical Exam Vital Signs: RN Vital Signs have been reviewed: Yes, Temperature: 99.3, Source: Temporal, Heart Rate: 94, Respiratory Rate: 24, BP: 133/78, Pulse Oximetry: 94, Weight: 91.000 Oxygen Flow Rate: 2.0 Physical Exam VITALS: Reviewed and as above. GENERAL: Awake, chronically ill appearing. HEENT: Normocephalic, atraumatic, PERRL, EOMI, dry mucosa, no erythema RESPIRATORY: Diminished breath sounds throughout. No tachypnea. no respiratory distress. CHEST: No accessory muscle use, no retractions CV: Regular rate, regular rhythm, no murmur, No: JVD GI: Distended abdomen. Varicose vein to right abdomen. Hepatomegaly. Mild diffuse abdominal tenderness. MUSCULOSKELETAL: No deformities, no edema SKIN: Pale. Warm and dry, no rash NEURO: Confused, moans, responds to painful stimuli. PSYCH: unable to assess. Progress Progress Note 1631: Hospitalist paged. 1645: Case discussed with Dr. Calero, hospitalist, who agrees to evaluate for admission. Results/Orders Reviewed/noted all lab results: Yes Results/Orders Orders - JANNETTE RUBY MD Chest,Single View (05/20/25 15:02) Page Hospitalist (05/20/25 ) Completed Orders - JANNETTE RUBY MD Electrocardiogram (05/20/25 14:54) Cbc/Diff (05/20/25 14:54) MG (05/20/25 14:54) Chest,Single View (05/20/25 15:02) Procalcitonin (05/20/25 14:54) BMP (05/20/25 14:54) Normal Saline 1000ml (0.9% Sodium Chlori (05/20/25 15:45) Ammonia (05/20/25 16:14) Liver Panel (05/20/25 15:29) Ua W/Microscopic, Cult If Ind (05/20/25 16:01) Man Diff (05/20/25 15:29) Vital Signs 05/20/25 05/20/25 05/20/25 05/20/25 14:17 14:31 15:27 16:31 Temp 99.3 Pulse 94 95 98 Resp 26 24 24 18 B/P (MAP) 133/78 126/83 (97) 125/87 (100) Pulse Ox 94 93 93 O2 Flow Rate 2.0 2.0 0 Laboratory Tests Test 05/20/25 15:29 05/20/25 16:01 White Blood Count 7.9 Red Blood Count 4.50 L Hemoglobin 10.9 L Hematocrit 34.7 L Mean Corpuscular Volume 77.0 L Mean Corpuscular Hemoglobin 24.1 L Mean Corpuscular Hemoglobin Concent 31.3 L Red Cell Distribution Width 22.3 H Platelet Count 237 Mean Platelet Volume 7.7 Neutrophils (%) (Auto) Lymphocytes (%) (Auto) Monocytes (%) (Auto) Eosinophils (%) (Auto) Basophils (%) (Auto) Neutrophils # (Auto) Lymphocytes # (Auto) Monocytes # (Auto) Eosinophils # (Auto) Basophils # (Auto) CBC Comment Differential Total Cells Counted 100 Neutrophils % (Manual) 78.0 H Band Neutrophils % 4.0 Lymphocytes % (Manual) 9.0 L Monocytes % (Manual) 8.0 Metamyelocytes % 1.0 H Platelet Estimate Normal Red Blood Cell Morphology Perf Polychromasia Few Hypochromasia 1+ Basophilic Stippling Anisocytosis 3+ Microcytosis 1+ Target Cells Few Elliptocytes Few Sodium Level 144 Potassium Level 4.8 Chloride Level 106 Carbon Dioxide Level 27.1 Anion Gap 11 Blood Urea Nitrogen 47 H Creatinine 1.59 H Estimated GFR/1.73 m2 44 BUN/Creatinine Ratio 29.6 H Glucose Level 84 Lactic Acid Level 0.6 Calcium Level 10.0 Magnesium Level 2.2 Total Bilirubin 1.8 H Direct Bilirubin 1.1 H Aspartate Amino Transf (AST/SGOT) 222 H Alanine Aminotransferase (ALT/SGPT) 65 Alkaline Phosphatase 139 H Total Protein 7.7 Albumin 2.4 L Globulin 5.3 H Albumin/Globulin Ratio 0.5 L Procalcitonin 3.53 H Chemistry Comments Urine Specimen Description Non-specified Urine Color Yellow Urine Clarity Cloudy Urine pH 5.5 Urine Specific [place] 1.025 Urine Protein 30 H Urine Glucose (UA) Negative Urine Ketones Trace H Urine Occult Blood Large H Urine Nitrite Positive H Urine Bilirubin Moderate Urine Urobilinogen 1.0 Urine Leukocyte Esterase Moderate H Urine RBC 3-10 Urine WBC Tntc H Urine WBC Clumps Moderate Urine Squamous Epithelial Cells Few Urine Amorphous Urates 1+ Urine Bacteria 3+ Urine Hyaline Casts 5-10 Urine Culture Indicated Indicated Volume Urine Centrifuged 2 ml Urine Comment Low volume EKG/XRAY/CT/US/VASC/MRI EKG : Additional Comment 1158: EKG interpreted by myself to show NSR at a rate of 96bpm. Specific ST abnormalities. Normal axis. Medical Decision Making Findings 59-year-old male who was on hospice and had his hospitalist rescinded today after he fell, patient is very chronically ill-appearing he is clinically dehydrated the patient is able to move all extremities he was hydrated in the emergency department. The patient will be admitted to the hospitalist the patient's labs were reviewed, the patient's cardiac cath technician was interpreted as a sinus rhythm. The patient's pulse oximetry was interpreted as normal and adequate. Departure Time of Disposition: 16:31 Disposition: 09 ADMITTED INPATIENT Admitted to Inpatient Unit: yes, to hospitalist Impression: Primary Impression: Dehydration Additional Impressions: Liver cirrhosis Qualified Codes: K74.60 - Unspecified cirrhosis of liver AMS (altered mental status) Qualified Codes: R41.82 - Altered mental status, unspecified Lung cancer Qualified Codes: C34.90 - Malignant neoplasm of unspecified part of unspecified bronchus or lung Condition: Guarded Signature Scribe Signature: Scribed for Jannette Ruby MD by Dionisio Longoria . 05/20/25 15:15 Attestation: The note accurately reflects work and decisions made by me.Jannette Ruby MD 05/21/25 19:03 JANNETTE RUBY MD May 20, 2025 14:50 DIONISIO FRANCO May 20, 2025 15:27
--- NOTE | 2025-05-20 15:00 | ELECTROCARDIOGRAPH REPORT ---
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 Johan Torres Measurements Intervals [place] Rate: 96 P: 78 RI: 134 QRS: 88 QRSD: 117 T: -15 QT: 347 QTc: 439 Interpretive Statements Sinus rhythm Nonspecific intraventricular conduction delay Borderline repolarization abnormality Electronically Signed On 06-03-2025 22:22:[address] Johan Torres Please click the below link to view image of tracing.
[2025-05-20 15:56] LABS: CREATININE 1.59 MG/DL (0.60-1.10); MEAN PLATELET VOLUME 7.7 FL (7.4-10.4); RED CELL DISTRIBUTION WIDTH 22.3 % (11.5-14.5); TOTAL CARBON DIOXIDE 27.1 MMOL/L (24-32); eCRCL 49 ML/MIN; eGFR 44 ML/MIN
[2025-05-20] MEDS: normal saline 1000ML IV soln IVB ONE (16:22)
[2025-05-20] MEDS ORDERED: magnesium sulf-water 2g/50mL 50 ML IV PRN (16:55)
[2025-05-20] MEDS ORDERED: magnesium Cl slow-release 64mg tablet PO PRN (16:55)
[2025-05-20] MEDS ORDERED: ondansetron/PF 4mg/2ml inj IV PRN (16:55)
[2025-05-20] MEDS ORDERED: magnesium hydroxide 30ml (MOM) UD suspension PO PRN (16:55)
[2025-05-20] MEDS ORDERED: magnesium sulf-water 4G/100mL 100 ML IV PRN (16:55)
[2025-05-20] MEDS ORDERED: potassium Cl 40MEQ/1/2NS 520ml 520 ML IV PRN (16:55)
[2025-05-20] MEDS ORDERED: potassium Cl 20 mEq SR tablet PO PRN ×2 (16:55)
[2025-05-20] MEDS ORDERED: HYDROcodone/acetaminophen 10/325mg tab PO PRN (16:55)
[2025-05-20] MEDS ORDERED: HYDROcodone/acetaminophen 5mg/325mg tablet PO PRN (16:55)
[2025-05-20] MEDS ORDERED: bisacodyl 10mg suppository rectal RC PRN (16:55)
[2025-05-20 17:01] LABS: LEUKOCYTE ESTERASE ,URINE MODERATE (Neg); NITRITES, URINE POSITIVE (Neg); OCCULT BLOOD,URINE LARGE (Neg)
[2025-05-20 17:03] LABS: UA COLLECTION TYPE NON-SPECIFIED
[2025-05-20 17:13] LABS: AMORPHOUS URATES 1+; SQUAMOUS EPITHELIAL CELL,UR FEW /LPF (FEW); WBC CLUMPS,URINE MODERATE /HPF (NEGATIVE)
[2025-05-20] MEDS: normal saline 1000ml 1,000 ML IV SCH (17:42)
[2025-05-20] MEDS: CefTRIAXone 2gm/D5W 50ml BAG 50 ML IV SCH (17:42)
[2025-05-20 18:09] LABS: BANDS% (MANUAL) 4.0 % (0-10); LYMPHOCYTES % (MANUAL) 9.0 % (21-51); METAMYLEOCYTES% (MANUAL) 1.0 % (0-0); MONOCYTES % (MANUAL) 8.0 % (2-12); NEUTROPHILS % (MANUAL) 78.0 % (42-75); PLATELET ESTIMATE NORMAL
[2025-05-20 18:10] LABS: ELLIPTOCYTES FEW
--- NOTE | 2025-05-20 19:07 | HISTORY AND PHYSICAL-Residence ---
History & Physical Providers to CC Resident Creating Document: BEAUJOSE ENRIQUE, RES ~ History of Present Illness Primary Medical Doctor: SHELLI Reason for Admit\Complaint: Mechanical fall History of Present Illness A 59 years old male with known discharged with Hospice care plan at home for his terminal stages of treated but possible recurrence lung cancer, metasis to the liver, Decompensated Chronic Liver Cirrhosis secondary to Hepatitis C Child-Harris Class B (9 points) with ascites, portal hypertension, portal vein thrombosis, COPD with Chronic Hypoxic Respiratory Failure, History of COPD (GOLD E), Iron- Deficiency Anemia, Acute on Chronic Kidney Disease Stage II, Hypertension, Hyperlipidemia, Prediabetes, Depression, and Chronic Severe Back Pain was brought to the ER as the family could not take care of the patient at home although patient was on Hospice care as per ER provider note, and stated that ?Hospitalist nurse rescinded his hospice care. In ER, pt was totally obtunded with a GCS score nine( best iron respond to verbal command, best verbal response with incomprehensive sounds, and the best moderate respond withdrawal from the pain) which is totally uncommunicable to provide the history. Pt vitals were stable in ER. Patient was noncooperative and not able to complaint. Patient's Rachel ([phone]) and daughter Jami Palma ([phone]) were out of service and could not able to be reached out today after multiple calls. Pt will be treated with IV ABx and IV fluid for his possible UTIs with the uncertain established advance care plan whethe if patient remains Hospice care or not anymore, which will be re evaluated and contacting to family POA again tomorrow again. Also discussed with supervising nurse who will be trying to contact family member for the advance care plan and goals care. Allergies: Coded Allergies: No Known Allergies (Unverified , 05/07/25) Home Medications Home Medications Active Prednisone 10 Mg Tablet 0 PO DAILY Take 4 tabs daily x4 days, then 3 daily x4 days 2 daily x4 days 1 daily x4 days 1/2 daily x4 days then STOP Ventolin Hfa (Albuterol Sulfate) 90 Mcg Hfa.aer.ad 2 Puffs INH Q4HPRN PRN 30 Days Culturelle (Lactobacillus Rhamnosus) 10 Billion Cell Capsule 1 Each PO BID 30 Days Lactulose 10 Gram/15 Ml Solution 20 Gm PO Q12H 30 Days Reported PROTONIX tablet (Pantoprazole Sodium) 40 Mg Tablet.dr 1 Tab PO DAILY Oxycodone Hcl 10 Mg Tablet 1 Tab PO TID PRN Lasix* (Furosemide) 20 Mg Tablet 1 Tab PO DAILY Wellbutrin Sr (Bupropion Hcl) 200 Mg Tablet.sa 1 Tab PO Q12H Trelegy Ellipta 100-62.5-25 (Fluticasone/Umeclidin/Vilanter) 100-62.5 Blst.w.dev 1 Puffs INH DAILY Neurontin (Gabapentin) 300 Mg Capsule 600 Mg PO TID Past Medical History Past Medical History possible recurrence lung cancer, metasis to the liver, Decompensated Chronic Liver Cirrhosis secondary to Hepatitis C Child-Harris Class B (9 points) with ascites, portal hypertension, portal vein thrombosis, COPD with Chronic Hypoxic Respiratory Failure, History of COPD (GOLD E), Iron-Deficiency Anemia, Acute on Chronic Kidney Disease Stage II, Hypertension, Hyperlipidemia, Prediabetes, Depression, and Chronic Severe Back Pain was brought to the ER as the family could not take care of the patient at home although patient was on Hospice care as per ER provider note, and stated that ?Hospitalist nurse rescinded his hospice care. Past Surgical History Surgical History Comment Not relevant Family History Family History: FHx: mental illness FATHER, , Age: 59, Cause: Cancer MOTHER, , Age: 75, Cause: Sepsis brother, Past Social History Smoking: Cigarettes, Greater than 1 pack/day Alcohol Use: None Drug Use: Marijuana, Methamphetamine, Heroin Lives with: Spouse Lives In: Home, Homeless Occupation: unemployed ROS All Other Systems: Reviewed and Negative ROS ROS were reviewed except for the above-mentioned in HGB eye. Unable to obtain: altered mental status Exam Vitals: Vital Signs Date Time Temp Pulse Resp B/P (MAP) Pulse Ox O2 Delivery O2 Flow Rate FiO2 05/20/25 17:39 98 26 141/85 (103) 93 0 05/20/25 14:17 99.3 General: General: GCS-9, confused, not agitated, not in acute distress, cooperated during the physical. HEENT: HEENT: Conjunctive are pink, sclerae clear, no icterus, pupil is equal in both sides, reactive to light, no ear discharge, no pharyngeal erythema or an edema, mouth and lips are dry. Neck: Neck: Supple, no JVD, no lymphadenopathy and thyromegaly. Chest: Lungs:Equal air entry on both lungs, wheezing and widespread rhonchi bilaterally Cardiovascular: Heart: S1-S2 regular sinus rhythm and, regular rate, no gallops, no rubs, no murmurs Abdomen: Abdomen: No visible peristalsis, Bowel sounds present on auscultation, soft, nontender, no guarding, no rigidity Extremities: Extremities: No obvious deformities, 2+ pitting edema bilaterally, capillary refill intact, able to wiggle toes both sides, peripheral pulsations are intact on both sides Central Nervous System: PSYCHOLOGIST EDUCATIONAL: No focal neurological deficits, no motor and sensory weakness in all 4 extremities, could move all 4 extremities Musculoskeletal: Musculoskeletal: No joint swelling, deformities, inflammations, and no scoliosis and back tenderness Skin: Skin: No active skin lesions and rashes with some scratch don Diagnostic Data Last Recorded Lab Results: 05/20/25 1529 05/20/25 1529 Advance Care Planning Advanced Care plannin - 30 Minutes Additional Plan A 59 years old male with known discharged with Hospice care plan at home for his terminal stages of treated but possible recurrence lung cancer, metasis to the liver, Decompensated Chronic Liver Cirrhosis secondary to Hepatitis C Child-Harris Class B (9 points) with ascites, portal hypertension, portal vein thrombosis, COPD with Chronic Hypoxic Respiratory Failure, History of COPD (GOLD E), Iron- Deficiency Anemia, Acute on Chronic Kidney Disease Stage II, Hypertension, Hyperlipidemia, Prediabetes, Depression, and Chronic Severe Back Pain was brought to the ER as the family could not take care of the patient at home although patient was on Hospice care as per ER provider note, and stated that ?Hospitalist nurse rescinded his hospice care. # Acute metabolic encephalopathy # UTI # Chronic hypochromic microcytic anemia/DESHAWN -normal ammonia, random blood sugar, serum calcium -elevated procalcitonin with UA showed positive nitrites and leukocyte esterase, TNTC WBC -was given IV ceftriaxone to continue until further notice/advanced directive care was established and confirmed with the family member -continue IV maintenance NS 75 mL/hr -patient's came in with Gomez catheterization # JONNY -mostly prerenal from the dehydration and renal tubular stasis -continue IV maintenance fluids -monitor I's and O's -we will consider for urine lytes investigations if patient's advanced care hospice care was revoked # Lung Cancer with right perihilar lymphadenopathy possible mets to liver and bilateral adrenal # Cirrhosis of liver # Splenomegaly # Ascites and mild anasarca # portal vein thrombosis # Transaminitis and hyperbilirubinemia -CT abdomen on 04/26/2025 showed cirrhosis, portal vein thrombosis, ascites, hepatosplenomegaly, mild anasarca, bilateral adrenal nodules -CT chest abdomen and pelvis with IV contrast on 04/18/2025 showed IMPRESSION: 1. Right perihilar masslike lesion measures 5.4 cm, possibly reflecting scarring versus neoplasm 2. Multiple small pulmonary nodules are seen, largest measuring up to 1.1 cm in the right lower lobe. 3. Cirrhotic liver containing multiple hypodense masses, the largest measuring up to 7 cm in the right hepatic lobe. 4. Splenomegaly. 5. Moderate to large abdominopelvic ascites. -patient was on hospice care -to confirm with the family member for goals therapy and confirm the code status -continue medical management including supportive care with hydrocodone/Matthews/acetaminophen/respiratory support CODE STATUS: Palliative/comfort care DVT prophylaxis: Sc heparin 5000 units b.i.d. Analgesia/sedation: Matthews/Tylenol/morphine Lines/tubes: PIV GI prophylaxis: None Nutrition: NPO Prognosis: Guarded Disposition: Continue medical management until further notice/confirmed with the family member for advanced directive care and goal therapy discussion, PT eval and DC plan with possible hospice care. Resident MD attestation: Patient was seen, examined and discussed with attending , Dr. Abdias YANEZ MD Internal Medicine Resident, PGY3 [facility] Date of Service: May 20, 2025 Billing Provider: MERLE HENRIQUEZ MD, TIN, RES May 20, 2025 19:07
--- NOTE | 2025-05-20 19:09 | RADIOLOGY REPORT ---
CLINICAL HISTORY: SEPSIS TECHNIQUE: Single view of the chest was obtained. COMPARISON: DI CHEST,SINGLE VIEW on DOS: 05/08/25, DI CHEST,SINGLE VIEW on DOS: 04/26/25, DI CHEST,SINGLE VIEW on DOS: 04/17/25, CT CT CHEST W/ IV CONTRAST on DOS: 04/08/25, DI CHEST,TWO VIEWS on DOS: 04/08/25 FINDINGS: The heart size and pulmonary vasculature are normal. There or stable right perihilar opacity subtle bibasilar nodular opacities. IMPRESSION: Stable right perihilar opacity and bibasilar nodular opacities better evaluated on CT chest performed on April 18, 2025.
[2025-05-20] MEDS: albuterol 2.5 MG/3 ML nebule NEB PRN (19:25)
[2025-05-20 19:27] VITALS: PULSE 93; RESP 18; O2SAT 88
[2025-05-20 19:32] VITALS: PULSE 90; RESP 20
[2025-05-20] MEDS: K and/or MAG REPLACEMENT MC SCH (20:00)
[2025-05-20] MEDS: heparin, porcine 5000 units/ml vial SQ SCH (20:00)
[2025-05-20 21:45] VITALS: RESP 18; O2SAT 97
[2025-05-20 21:50] VITALS: BP 137/81; PULSE 81; RESP 18; TEMP 98.6; O2SAT 97
[2025-05-21] VITALS (7 sets, daily range): BP systolic 121–142; BP diastolic 76–85; PULSE 89–96; RESP 18–24; TEMP 97.4–98.6; O2SAT 85–97
[2025-05-21] MEDS: HYDROmorphone inj. 0.5 MG/0.5 ML DISP.SYRIN IV PRN (02:50)
[2025-05-21 04:54] LABS: CREATININE 1.69 MG/DL (0.60-1.10); TOTAL CARBON DIOXIDE 28.1 MMOL/L (24-32); eCRCL 46 ML/MIN; eGFR 41 ML/MIN
[2025-05-21 04:57] LABS: RED CELL DISTRIBUTION WIDTH 22.5 % (11.5-14.5)
[2025-05-21 05:00] LABS: MEAN PLATELET VOLUME 7.7 FL (7.4-10.4)
[2025-05-21 06:48] LABS: BANDS% (MANUAL) 2.0 % (0-10); EOSINOPHILS % (MANUAL) 2.0 % (0-6); LYMPHOCYTES % (MANUAL) 14.0 % (21-51); MONOCYTES % (MANUAL) 7.0 % (2-12); NEUTROPHILS % (MANUAL) 75.0 % (42-75)
[2025-05-21 06:49] LABS: ELLIPTOCYTES FEW; PLATELET ESTIMATE NORMAL
[2025-05-21] MEDS ORDERED: morphine 10mg/0.5ml (conc. morphine) oral syringe PO PRN (11:20)
[2025-05-21] MEDS ORDERED: morphine 10mg/ml inj. IV PRN (11:20)
[2025-05-21] MEDS ORDERED: diazepam inj 5 MG/ML inj. IV PRN (11:20)
--- NOTE | 2025-05-21 11:48 | PROGRESS NOTE- Residence ---
Progress Note - Resident Providers to CC Resident Creating Document: JULIANA VEGAS, MICHAEL ~ Antibiotic Timeout Antibiotic Ordered?: No Subjective Patient was seen and examined at bedside, he was not acute distress. Nurse Rosario contacted her to confirm their wishes, and she confirmed that the wanted to continue with comfort care but could not provide care at home. The patients requested placement in a facility with hospice support. Objective Vital Signs Date Time Temp Pulse Resp B/P (MAP) Pulse Ox O2 Delivery O2 Flow Rate FiO2 05/21/25 08:04 90 18 95 Nasal Cannula* 2 28 05/21/25 05:00 97.8 121/85 (97) Result Diagram: 05/21/2542305/21/25423 Awake , alert, and oriented x4, resting comfortably in the bed, in acute distress HEENT: Atraumatic, normocephalic, EOMI, anicteric sclera ; pink conjunctiva Neck: Trachea midline. Supple, full range of motion, no JVD Cardiac: Regular rhythm, regular rate with no murmurs all over the precordium. Respiratory: Equal breath sounds bilaterally, no tachypnea, no wheezing ,rub or rales, Chest wall is symmetric and without deformity. Gastrointestinal: Abdomen symmetric, distended, soft, mildly tender, normal bowel sounds x4 quadrant, normoactive, masslike structures palpable on the epigastric region Musculoskeletal: No pedal edema, no cyanosis Neurological: Speech is clear, alert, and oriented x 4. No motor or sensory deficit, deep tendon reflexes normal, cerebellar intact. Cranial nerves II-XII intact. Skin: Warm and dry Advance Care Planning Advanced Care plannin - 30 Minutes Plan Plan 1. Decompensated Chronic Liver Cirrhosis secondary to Hepatitis C Child-Harris Class B (9 points) with ascites, portal hypertension, portal vein thrombosis, hepatic masses, and weight loss. 2. Portal Vein Thrombosis-acute 3. Hepatic and Pulmonary Masses Concern for Malignancy 4. COPD with Chronic Hypoxic Respiratory Failure / Possible Recurrence of Lung Cancer History of COPD (GOLD E) 5. Iron-Deficiency Anemia 6. Acute on Chronic Kidney Disease Stage II 7. Hypertension, Hyperlipidemia, Prediabetes 8. Depression 9. Chronic Severe Back Pain Previous admit: The patient and his were thoroughly counseled regarding his overall clinical status and poor prognosis, including decompensated chronic liver cirrhosis with portal vein thrombosis, significant ascites, hepatic and adrenal masses concerning for possible malignancy, ongoing weight loss, and multiple chronic comorbidities (COPD with chronic hypoxemic respiratory failure, CKD stage II, iron-deficiency anemia, and functional decline) during the last admit. The limited benefit of further aggressive interventions such as invasive procedures, chemotherapy, or intensive monitoring was discussed in detail. Both the patient and his expressed understanding and agreed to transition to hospice care, prioritizing comfort-focused management, symptom control, and quality of life. The patient was re-admitted yesterday 05/20/2025, and further discussions were held with his . Nurse Ponce contacted her to confirm their wishes, and she confirmed that the wanted to continue with comfort care but could not provide care at home. The patients requested placement in a facility with hospice support. Plans will be made to facilitate transfer to an appropriate care facility where hospice services can be provided, ensuring continuity of comfort-focused management, necessary medications, equipment, and multidisciplinary support. Pain/dyspnea: Morphine sulfate 2 mg IV q1h PRN or 510 mg PO q2h PRN (adjust per renal/hepatic status) Anxiety/agitation: Diazepam 10 mg q.4h PRN Terminal secretions: scopolamine patch q72h Nausea: Ondansetron 4 mg IV/PO q6h PRN Fever/pain: Acetaminophen 650 mg PO/MO q6h PRN Constipation (if taking PO): Senna 12 tabs PO BID bisacodyl suppository PRN Code Status: Palliative/comfort Juliana Vegas MD Internal Medicine Resident, PGY-2 Date of Service: May 21, 2025 Billing Provider: MERLE HENRIQUEZ MD Common Visit Codes: 62897-[id number] INP/OBS CARE(HIGH) Secondary Visit Codes: 29910-[id number] CARE PLAN 30 MINUTES JULIANA VEGAS, MICHAEL May 21, 2025 11:47 MERLE HENRIQUEZ MD May 21, 2025 19:29
[2025-05-21] MEDS: HYDROmorphone inj. 0.5 MG/0.5 ML DISP.SYRIN IV ONE (19:47)
[2025-05-21] MEDS ORDERED: docusate sod 100mg capsule PO SCH (20:00)
[2025-05-21] MEDS: diazepam inj 5 MG/ML inj. IV PRN (20:48)
[2025-05-21] MEDS: morphine 10mg/0.5ml (conc. morphine) oral syringe PO PRN (22:59)
[2025-05-22] MEDS: morphine 10mg/ml inj. IV PRN (05:11)
--- NOTE | 2025-05-22 15:17 | PROGRESS NOTE- Residence ---
Progress Note - Resident Providers to CC Resident Creating Document: JULIANA VEGAS RES ~ Antibiotic Timeout Antibiotic Ordered?: No Subjective Patient was seen and examined at bedside, he was in acute distress. Patient's was at bedside, who claims that she was unable to take care of him at home. Hence she was requesting for a placement at hospice care facility. Objective Vital Signs Date Time Temp Pulse Resp B/P (MAP) Pulse Ox O2 Delivery O2 Flow Rate FiO2 05/22/25 08:00 Nasal Cannula 3.0 05/22/25 06:14 18 05/21/25 22:00 98.6 95 132/76 (94) 85 05/21/25 08:04 28 Result Diagram: 05/21/2542305/21/25423 Awake , alert, and oriented x4, resting comfortably in the bed, in acute distress HEENT: Atraumatic, normocephalic, EOMI, anicteric sclera ; pink conjunctiva Neck: Trachea midline. Supple, full range of motion, no JVD Cardiac: Regular rhythm, regular rate with no murmurs all over the precordium. Respiratory: Equal breath sounds bilaterally, no tachypnea, no wheezing ,rub or rales, Chest wall is symmetric and without deformity. Gastrointestinal: Abdomen symmetric, distended, soft, mildly tender, normal bowel sounds x4 quadrant, normoactive, masslike structures palpable on the epigastric region Musculoskeletal: No pedal edema, no cyanosis Neurological: Speech is clear, alert, and oriented x 4. No motor or sensory deficit, deep tendon reflexes normal, cerebellar intact. Cranial nerves II-XII intact. Skin: Warm and dry Advance Care Planning Advanced Care plannin - 30 Minutes Plan Plan 1. Decompensated Chronic Liver Cirrhosis secondary to Hepatitis C Child-Harris Class B (9 points) with ascites, portal hypertension, portal vein thrombosis, hepatic masses, and weight loss. 2. Portal Vein Thrombosis-acute 3. Hepatic and Pulmonary Masses Concern for Malignancy 4. COPD with Chronic Hypoxic Respiratory Failure / Possible Recurrence of Lung Cancer History of COPD (GOLD E) 5. Iron-Deficiency Anemia 6. Acute on Chronic Kidney Disease Stage II 7. Hypertension, Hyperlipidemia, Prediabetes 8. Depression 9. Chronic Severe Back Pain Previous admit: The patient and his were thoroughly counseled regarding his overall clinical status and poor prognosis, including decompensated chronic liver cirrhosis with portal vein thrombosis, significant ascites, hepatic and adrenal masses concerning for possible malignancy, ongoing weight loss, and multiple chronic comorbidities (COPD with chronic hypoxemic respiratory failure, CKD stage II, iron-deficiency anemia, and functional decline) during the last admit. The limited benefit of further aggressive interventions such as invasive procedures, chemotherapy, or intensive monitoring was discussed in detail. Both the patient and his expressed understanding and agreed to transition to hospice care, prioritizing comfort-focused management, symptom control, and quality of life. The patient was re-admitted on 05/20/2025, and further discussions were held with his . Nurse Ponce contacted her to confirm their wishes, and she confirmed that the wanted to continue with comfort care but could not provide care at home. The patients requested placement in a facility with hospice support. Plans will be made to facilitate transfer to an appropriate care facility where hospice services can be provided, ensuring continuity of comfort-focused management, necessary medications, equipment, and multidisciplinary support. Pain/dyspnea: Morphine sulfate 2 mg IV q1h PRN or 510 mg PO q2h PRN (adjust per renal/hepatic status) Anxiety/agitation: Diazepam 10 mg q.4h PRN Terminal secretions: scopolamine patch q72h Nausea: Ondansetron 4 mg IV/PO q6h PRN Fever/pain: Acetaminophen 650 mg PO/WA q6h PRN Constipation: Senna 12 tabs PO BID bisacodyl suppository PRN Code Status: Palliative/comfort Juliana Vegas MD Internal Medicine Resident, PGY-2 Date of Service: May 22, 2025 Billing Provider: IVONE VIGIL DO Common Visit Codes: [id number] INP/OBS CARE(LOW) JULIANA VEGAS, RES May 22, 2025 15:17 IVONE VIGIL DO May 22, 2025 16:13
[2025-05-22] MEDS ORDERED: hyoscyamine 0.125mg TAB.SUBL SL PRN (16:15)
[2025-05-22] MEDS ORDERED: morphine 10mg/0.5ml (conc. morphine) oral syringe PO PRN (16:15)
[2025-05-22 20:04] VITALS: RESP 22
--- NOTE | 2025-05-23 14:48 | Death Certificate Worksheet ---
Certificate Worksheet Date of Date of : May 22, 2025 Cause of / Time Intervals Cause of IMMEDIATE CAUSE (Final Disease or *Time Between Onset and condition resulting in ) [Hours (H), Days (D),Week's (W),Month's (M ),Year's (Y)] A) acute respiratory failure *Time: Days B) cardiac arrest *Time: Minutes C) *Time: D) *Time: E) *Time: Other Significant Conditions Other Significant Conditions COPD, likely reoccurrence of lung cancer, portal vein thrombosis with liver cirrhosis Operations & Dates Performed If Female, in Last YR.: No Biopsy: No First Time Seen.: May 20, 2025 Last time Seen: May 22, 2025 Home Other [facility] [employer] [facility] License Number [id number] Physicians Mailing Address Hospitalist Mailing Address: [address] [facility], [address] IVONE VIGIL DO May 23, 2025 14:48
--- NOTE | 2025-05-23 16:35 | DISCHARGE SUMMARY-Residence ---
Discharge Summary Providers to CC Resident Creating Document: JOSE ENRIQUE YANEZ RES ~ Discharge Summary Admission Diagnosis: HEPATIC AND PULMONARY MASSES, CHRONIC LIVER CIRRHOSIS, CKD STAGE 3 Hospital Course DATE OF ADMISSION: 05/20/2025 DATE OF DISCHARGE: 05/22/2025 Discharge Diagnosis\Comment: # Acute metabolic encephalopathy # UTI # Chronic hypochromic microcytic anemia/DESHAWN # JONNY -mostly prerenal from the dehydration and renal tubular stasis # Lung Cancer with right perihilar lymphadenopathy possible mets to liver and bilateral adrenal # Cirrhosis of liver # Splenomegaly # Ascites and mild anasarca # portal vein thrombosis # Transaminitis and hyperbilirubinemia Operations\Procedures: None Consultants: None Complications: None Condition on DC: Stable Discharge Summary: A 59 years old male with known discharged with Hospice care plan at home for his terminal stages of treated but possible recurrence lung cancer, metasis to the liver, Decompensated Chronic Liver Cirrhosis secondary to Hepatitis C Child-Harris Class B (9 points) with ascites, portal hypertension, portal vein thrombosis, COPD with Chronic Hypoxic Respiratory Failure, History of COPD (GOLD E), Iron-Deficiency Anemia, Acute on Chronic Kidney Disease Stage II, Hypertension, Hyperlipidemia, Prediabetes, Depression, and Chronic Severe Back Pain was brought to the ER as the family could not take care of the patient at home although patient was on Hospice care as per ER provider note, and stated that ?Hospitalist nurse rescinded his hospice care. Hospital course: Patient was admitted with tentative advanced directive care plan of being under full code after revoking the Hospice and palliative care or Hospice care plan of goals of directed therapy. Patient was initially treated with IV antibiotics and fluids for his UTI causing acute metabolic encephalopathy and was admitted to the hospital with the family concern of not being able to take care of the patient although he is on Hospice care at home. After multidisciplinary team approach and care plan discussion with the family member/ / POA on next day of the admission, they agreed to continue just palliative care with Hospice care plan during hospitalization. We provided the palliative care for Hospice with hydrocodone/Carlyle/acetaminophen/respiratory supports and antisecretory with PO Liquid hyoscyamine as needed with the sedation for anxiety and restlessness. Patient on 05/22/25 at 2220 which was confirmed by the rn clinical documentation specialist physician. Patient with the main cause of with Acute cardiac and respiratory arrest from the acute respiratory failure from the possible recurrence lung cancer with right perihilar lymphadenopathy possible mets to liver and bilateral adrenal and portal vein thrombosis with Cirrhosis of liver. Resident MD attestation: Patient was seen, examined and discussed with attending physician, Dr. Elizabeth YANEZ MD Internal Medicine Resident, PGY3 [facility] *Problems/Diagnosis: (1) Acute hypoxemic respiratory failure Total Time Spent on D/C: > 30 Minutes Date of Service: May 23, 2025 Billing Provider: IVONE VIGIL DO Common Visit Codes: NOT BILLABLE (The patient was seen in the morning and at 10:20 p.m. on 05/22/2025) JOSE ENRIQUE YANEZ, RES May 23, 2025 16:22 IVONE VIGIL DO May 23, 2025 18:23
== END 2025-05-22 22:20 | DRG 432 ==
LOC: ER 13:56 → ED HOLD 16:59 → SUR 3N 21:45
PROVIDERS: ADMIT Internal Medicine; ATTEND Internal Medicine
DX: K74.60 Unspecified cirrhosis of liver (principal); G93.41 Metabolic encephalopathy; N17.0 Acute kidney failure with tubular necrosis; I81 Portal vein thrombosis; J96.21 Acute and chronic respiratory failure with hypoxia; N39.0 Urinary tract infection, site not specified; C78.7 Secondary malignant neoplasm of liver and intrahepatic bile duct; C79.72 Secondary malignant neoplasm of left adrenal gland; C79.71 Secondary malignant neoplasm of right adrenal gland; Z59.00 Homelessness unspecified; I13.0 Hypertensive heart and chronic kidney disease with heart failure and stage 1 through stage 4 chronic kidney disease, or unspecified chronic kidney disease; R18.8 Other ascites; C34.90 Malignant neoplasm of unspecified part of unspecified bronchus or lung; Z51.5 Encounter for palliative care; I46.9 Cardiac arrest, cause unspecified; E86.0 Dehydration; D50.9 Iron deficiency anemia, unspecified; B19.20 Unspecified viral hepatitis C without hepatic coma; J44.9 Chronic obstructive pulmonary disease, unspecified; I50.9 Heart failure, unspecified; F32.A Depression, unspecified; N18.2 Chronic kidney disease, stage 2 (mild); F20.9 Schizophrenia, unspecified; Z85.118 Personal history of other malignant neoplasm of bronchus and lung; Z87.891 Personal history of nicotine dependence
CPT/HCPCS: 36415; 71045; 80048; 80053; 80076; 81001; 82140; 83605; 83735; 84145; 85007; 85025; 87040; 87077; 87081; 87088; 87186; 93005; 94640; 94760; 96365; 96375; 99285; A5200; G0378; J0696; J1171; J2060; J2270; J2274; J3360; J7030